=== PATIENT | female | born 1965 | race Hispanic/Latino ===

== ENCOUNTER 2016-10-19 11:20 | Emergency (ER) | payer OTHER, SELFPAY ==
[2016-10-19] MEDS ORDERED: Lidocaine Viscous Sol 2% 15 ml UD Cup ONE (11:43)
[2016-10-19] MEDS ORDERED: Clindamycin 150 MG CAP ONE (11:43)
[2016-10-19] MEDS ORDERED: HYDROcodone/Acetaminophen 10/325 mg Tablet ONE (11:44)
[2016-10-19] MEDS ORDERED: Bupivacaine PF 0.5% 30 ML VIAL ONE (12:45)
[2016-10-19] MEDS ORDERED: Ketorolac Tromethamine 60 MG/2 ML VIAL ONE (13:01)
--- NOTE | 2016-10-19 13:29 | ERRECORD ---
[facility] EMERGENCY RECORD HPI TOOTHACHE (11:44 ABUS) CHIEF COMPLAINT: Patient presents for evaluation of toothache. HISTORIAN: History provided by patient, 50 yr old F with known dental caries and several broken teeth who comes in with left lower jaw pain, swelling and concern for abscess. She has known about this broken tooth for a long time but cannot afford dental care. Denies any F, N/V. LOCATION: Symptoms are localized, most severe to left lower jaw. QUALITY: Pain is dull in nature, described as aching, described as pressure-like. SEVERITY: Currently symptoms are moderate. TIME COURSE: Gradual onset of symptoms, 1, days priror to arrival. ASSOCIATED WITH: Associated with facial pain, for 1 day, Associated with facial swelling, for 1 day, No associated fever, No associated recent dental procedure, No associated trauma. EXACERBATED BY: Patient's condition exacerbated by nothing. RELIEVED BY: Patient's condition relieved by nothing. ROS (11:46 ABUS) CONSTITUTIONAL: Negative constitutional review of systems, Historian denies chills, denies fever. ENT: Historian denies drooling, denies epistaxis, denies otalgia, denies otorrhea, denies rhinorrhea, denies sinus pain, denies sore throat. CARDIOVASCULAR: Negative cardiovascular review of systems, Historian denies chest pain, denies palpitations. RESPIRATORY: Negative respiratory review of systems, Historian denies cough, denies shortness of breath. GI: Negative gastrointestinal review of systems, Historian denies abdominal pain, denies constipation, denies diarrhea, denies nausea, denies vomiting. GENITOURINARY FEMALE: Negative genitourinary review of systems, Historian denies dysuria, denies frequency. SKIN: Negative skin review of systems, Historian denies rash, denies skin changes. NEUROLOGIC: Negative neurologic review of systems, Historian denies headache. HEMO/LYMPHATIC: Normal hematologic/lymphatic system review, Historian denies abnormal blood clotting. PAST MEDICAL HISTORY (WedOct 19, 2016 11:32 MDEB) MEDICAL HISTORY: Past medical history includes history of diabetes, Type II, Past medical history includes history of hyperlipidemia, high cholesterol, Past medical history includes history of hypertension, which has been treated, Past medical history includes pulmonary disease, chronic obstructive pulmonary disease, Notes: NON-COMPLIANT WITH MEDICATIONS, Past medical history includes cardiac history, congestive heart failure,. VERIFIEDE 09/30/16. &a-1R&a+25V*p+0X*[id number]*c202B*c15G*c2P*p-0X&a-25V&a+1R Name: Lianna Crowe : 1965 F50 MedRec: [id number] AcctNum: [id number] Prepared: WedOct 19, 2016 18:51 by Interface Page 1 of 4 pMD [facility] EMERGENCY RECORD FEMALE SURGICAL HISTORY: Surgical history of tonsillectomy,. VERIFIED 09/29/16. PSYCHIATRIC HISTORY: No previous psychiatric history, Notes: DENIES, No previous psychiatric history, Notes: DENIES. Reviewed 02/07/2015. SOCIAL HISTORY: Patient denies alcohol use, Patient denies drug use, Patient currently uses tobacco, smokes cigarettes, Patient smokes 1 pack per day, Social History includes VERIFIED 07-19-16, Social History includes lives alone but dad lives close, Patient drinks socially, rarely, Patient denies drug use, Patient currently uses tobacco, smokes cigarettes, daily reports 1 1/2 packs. KNOWN ALLERGIES No Known Allergies (Unconfirmed) No Known Drug Allergies CURRENT MEDICATIONS No recorded medications VITAL SIGNS (11:30 MDEB) VITAL SIGNS: BP: 139/64, Pulse: 80, Resp: 20, Temp: 98.2 (Oral), Pain: 8, O2 sat: 97 on Room Air, Time: 10/19/2016 11:30. PHYSICAL EXAM (11:46 ABUS) CONSTITUTIONAL: Vital signs reviewed, Patient afebrile, Pulse normal, Blood pressure normal, Respiratory rate normal, Patient appears non toxic, Patient appears pain free, Patient alert and oriented to person, place and time. ENT: Ear exam normal, external ear normal, Nose exam normal, no nasal deformity, Pharynx exam normal, not injected, no swelling, symmetrical, Uvula exam normal, midline, no edema, Tonsil exam normal, not enlarged, no exudates, Mouth exam normal, mucous membranes moist, Teeth with, dental caries, fractures, Sinus exam included findings of frontal sinuses with, Maxillary sinuses with. NECK: Neck exam normal, Neck exam included findings of normal range of motion, Trachea midline, no meningeal signs, no cervical adenopathy, no tenderness. RESPIRATORY CHEST: Respiratory and chest exam normal, Respiratory exam included findings of no respiratory distress, Breath sounds clear. CARDIOVASCULAR: Cardiovascular assessment normal, Cardiovascular exam included findings of heart rate regular rate and rhythm, Heart sounds normal. ABDOMEN FEMALE: Abdominal exam included findings of abdomen nontender, Bowel sounds normal, no distension, no mass, no pulsatile masses, no peritoneal signs, no rigidity, no guarding, no rebound, Rovsing's sign absent. BACK: Back exam normal, Back exam included findings of normal inspection, range of motion normal, no tenderness. &a-1R&a+25V*p+0X*[id number]*c202B*c15G*c2P*p-0X&a-25V&a+1R Name: Lianna Crowe : 1965 F50 MedRec: [id number] AcctNum: [id number] Prepared: WedOct 19, 2016 18:51 by Interface Page 2 of 4 pMD [facility] EMERGENCY RECORD NEURO: Neuro exam normal, Neuro exam findings include patient oriented to person, place and time, Speech normal, Gait normal. SKIN: Skin exam normal, Skin exam included findings of skin warm, dry, and normal in color, no rash. MEDICATION ADMINISTRATION SUMMARY Drug Name: Toradol intramuscular, Dose Ordered: 60 mg, Route: Intramuscular, Status: Given, Time: 13:05 10/19/2016, Drug Name: *Lidocaine Viscous, Dose Ordered: 15 mL, Route: Oral, Status: Given, Time: 12:07 10/19/2016, Drug Name: Marcaine, Dose Ordered: 30 mL, Route: Intradermal, Status: Given, Time: 12:00 10/19/2016, Drug Name: HYDROcodone-acetaminophen, Dose Ordered: 10/325 tab(s), Route: Oral, Status: Given, Time: 11:45 10/19/2016, Drug Name: clindamycin HCl, Dose Ordered: 300 mg, Route: Oral, Status: Given, Time: 11:43 10/19/2016, *Additional information available in notes, Detailed record available in Medication Service section. DOCTOR NOTES (11:47 ABUS) TEXT: 50 yr old F with known dental caries and several broken teeth who comes in with left lower jaw pain, swelling and concern for abscess. EXAM: Swelling to the left lower jaw with mild fluctuance around a broken tooth #36. No fever here. DDX: tooth fracture, abscess, dental caries PROCEDURE: I&D of dental abscess using bupivacaine 0.5% 1 cc, small purulent drainage noted with small incision using 18 g needle. Plan: Analgesia, clindamycin, lidocaine, I&D, d/c with dental referral, strict return precautions and prescription discount cards. PROBLEM LIST No recorded problems DIAGNOSIS (13:01 ABUS) FINAL: PRIMARY: Tooth abscess. PRESCRIPTION (11:51 ABUS) Peridex: MOUTHWASH : 0.12 % : MUCOUS MEMBRANE : Quantity: 30 Unit: mL Route: MUCOUS MEMBRANE Schedule: 2 times a day Dispense: * May substitute. Refills: No Refills . NOTES: 1 bottle, Swish and spit. No Refills. acetaminophen-codeine: TABLET : 300 mg-30 mg : ORAL : Quantity: 1 Unit: tab(s) Route: ORAL Schedule: every 6 hours PRN Dispense: 16 Unit: tab(s) May substitute. Refills: No Refills . &a-1R&a+25V*p+0X*[id number]*c202B*c15G*c2P*p-0X&a-25V&a+1R Name: Lianna Crowe : 1965 F50 MedRec: [id number] AcctNum: [id number] Prepared: WedOct 19, 2016 18:51 by Interface Page 3 of 4 pMD [facility] EMERGENCY RECORD NOTES: No Refills. clindamycin HCl: CAPSULE : 300 mg : ORAL : Quantity: 1 Unit: cap(s) Route: ORAL Schedule: 3 times a day Dispense: 21 Unit: cap(s) May substitute. Refills: No Refills . NOTES: ^s=No Refills No Refills. DISPOSITION PATIENT: Disposition Type: Discharge, Disposition: *Discharge Home, Condition: Good. (13:01 ABUS) Patient left the department. (13:22 BABAR) Acosta: FAVIO=MD Donna, Pradeep ECKERT=ARIES Sotelo, Tammie &a-1R&a+25V*p+0X*[id number]*c202B*c15G*c2P*p-0X&a-25V&a+1R Name: Lianna Crowe : 1965 F50 MedRec: [id number] AcctNum: [id number] Prepared: WedOct 19, 2016 18:51 by Interface Page 4 of 4 pMD MTDD
--- NOTE | 2016-10-19 13:33 | PICIS ---
[facility] EMERGENCY RECORD TRIAGE (WedOct 19, 2016 11:32 MDEB) PATIENT: NAME: Lianna Crowe, AGE: 50, GENDER: female, : Wed1965, TIME OF GREET: WedOct 19, 2016 11:20, PREFERRED LANGUAGE: Peruvian, RACE: or , ETHNICITY: Not or , FALL RISK: NO, ECODE BILLING MAP: [facility], SSN: [id number], Zip Code: [address], KG WEIGHT: 75.30, PHONE: , , , PERSON ID: [id number], PCP: DO Seaman Hillary. (WedOct 19, 2016 11:32 MDEB) TRIAGE NOTES: LL MOLAR, L UPPER MOLAR WITH FX TEETH. (WedOct 19, 2016 11:32 MDEB) COMPLAINT: ABCESSED TOOTH. (WedOct 19, 2016 11:32 MDEB) ADMISSION: URGENCY: 4 Non Urgent, ADMISSION SOURCE: Home, TRANSPORT: Walk-in, BED: TRIAGE. (WedOct 19, 2016 11:32 MDEB) ASSESSMENT: Assessment: SWELLING TO JAW ET GUMS. (WedOct 19, 2016 11:32 MDEB) PAIN: Patient complains of pain described as, aching, on a scale 0-10 patient rates pain as 8. (WedOct 19, 2016 11:32 MDEB) IMMUNIZATIONS: Flu vaccine up to date, Tetanus immunization up to date, Pneumococcal vaccine up to date. (WedOct 19, 2016 11:32 MDEB) TRIAGE SCREENING: Patient denies suicidal ideation, Patient denies presence of domestic violence. (WedOct 19, 2016 11:32 MDEB) LMP: Last menstrual period: 10/04/2016. (WedOct 19, 2016 11:32 MDEB) PROVIDERS: TRIAGE NURSE: Tammie Sotelo RN. (WedOct 19, 2016 11:32 MDEB) VITAL SIGNS: BP 139/64, Pulse 80, Resp 20, Temp 98.2, (Oral), Pain 8, O2 Sat 97, on Room Air, Time 10/19/2016 11:30. (11:30 MDEB) KNOWN ALLERGIES No Known Allergies (Unconfirmed) No Known Drug Allergies CURRENT MEDICATIONS No recorded medications VITAL SIGNS (11:30 MDEB) VITAL SIGNS: BP: 139/64, Pulse: 80, Resp: 20, Temp: 98.2 (Oral), Pain: 8, O2 sat: 97 on Room Air, Time: 10/19/2016 11:30. NURSING ASSESSMENT: DENTAL (11:32 MDEB) CONSTITUTIONAL: Patient arrives ambulatory, Gait steady, History obtained from patient, Patient appears, in distress due to pain, uncomfortable, Patient cooperative, Patient alert, Oriented to person, place and time, Skin warm, Skin dry, Skin normal in color, Mucous membranes pink, Mucous membranes moist, Patient is well-groomed, Patient complains of DENTAL ABCESS, SWELLING TO LL JAW ET GUMS. PAIN: aching pain, to left upper back tooth &a-1R&a+25V*p+0X*f8108J*c202B*c15G*c2P*p-0X&a-25V&a+1R Name: Lianna Crowe : 1965 F50 MedRec: [id number] AcctNum: [id number] Prepared: WedOct 19, 2016 18:57 by Interface Page 1 of 8 pMD [facility] EMERGENCY RECORD (teeth), to right lower back tooth (teeth), on a scale 0-10 patient rates pain as 8, Pain exacerbated by nothing, Nothing has been tried to alleviate the pain. DENTAL: Dental assessment findings include mouth normal, Teeth abnormal:, broken secondary tooth (teeth), signs of infection to secondary tooth (teeth), color change to secondary tooth (teeth), missing secondary tooth (teeth), Associated with, swelling to the left side of the face, swelling to the left jaw. NOTES: Emotional support needed and given, Patient tolerated procedure well. SAFETY: Side rails up, Cart/Stretcher in lowest position, Call light within reach, Hospital ID band on. NURSING PROCEDURE: ASSISTED MD (12:50 MDEB) ASSISTED MD: Assisted MD with simple procedure, DRAIN DENTAL ABCESS. NURSING PROCEDURE: DISCHARGE NOTE (13:20 MDEB) DISCHARGE: Patient discharged to home, ambulating without assistance, family driving, accompanied by parent, Summary of Care printed/ provided, Patient requested and was provided an electronic copy of Discharge Instructions, Transition record given to patient, Discharge instructions given to patient, Simple or moderate discharge teaching performed, ATB, [employer], Prescriptions given and instructions on side effects given, Above person(s) verbalized understanding of discharge instructions and follow-up care, Patient treated and evaluated by physician, Notes: RX DISCOUNT CARDS PROVIDED TO PT. BELONGINGS: Belongings remain with patient, Valuables remain with patient. NOTES: Emotional support needed and given, Patient tolerated procedure well. NURSING PROCEDURE: INCISION AND DRAINAGE (13:03 ABUS) PATIENT IDENTIFIER: Patient actively involved in identification process, Patient's identity verified by hospital ID ry. TIMEOUT: Prior to procedure, correct patient verified by, Correct procedure verified, Correct site verified, Correct equipment utilized, Physician performing procedure Dr. Burks. I & D: Incision and drainage indicated to promote healing, Incision and drainage indicated for pain control, Incision and drainage performed, to Tooth #36, by Dr. Burks, small amount, of purulent fluid drained. FOLLOW-UP: After procedure, patient rates pain as 6 out of 10, Notes: Irrigated with water and had patient swish and spit. NOTES: Emotional support needed and given, Patient tolerated procedure with difficulty. &a-1R&a+25V*p+0X*h6268Q*c202B*c15G*c2P*p-0X&a-25V&a+1R Name: Lianna Crowe : 1965 F50 MedRec: [id number] AcctNum: [id number] Prepared: WedOct 19, 2016 18:57 by Interface Page 2 of 8 pMD [facility] EMERGENCY RECORD NURSING PROCEDURE: NURSE NOTES (12:45 MDTIM) NURSES NOTES: Notes: PT NOT TOLERATING TOPICAL ANESTHESIA FOR DRAINING ABCESS BY DR BURKS. HE REQUESTS MARCAINE FOR DRAINGING ABCESS. ORDER DETAILS Order Name: chart element #1, Status: Active, Time: 13:03 10/19/2016, User: System, - Ordered for: MD Burks Anthony, - Entered by: MD Burks Anthony - WedOct 19, 2016 13:03, - Quantity: 1, Order Name: chart element #4, Status: Active, Time: 13:03 10/19/2016, User: System, - Ordered for: MD Burks Anthony, - Entered by: MD Burks Anthony - WedOct 19, 2016 13:03, - Quantity: 1. MEDICATION ADMINISTRATION SUMMARY Drug Name: Toradol intramuscular, Dose Ordered: 60 mg, Route: Intramuscular, Status: Given, Time: 13:05 10/19/2016, Drug Name: *Lidocaine Viscous, Dose Ordered: 15 mL, Route: Oral, Status: Given, Time: 12:07 10/19/2016, Drug Name: Marcaine, Dose Ordered: 30 mL, Route: Intradermal, Status: Given, Time: 12:00 10/19/2016, Drug Name: HYDROcodone-acetaminophen, Dose Ordered: 10/325 tab(s), Route: Oral, Status: Given, Time: 11:45 10/19/2016, Drug Name: clindamycin HCl, Dose Ordered: 300 mg, Route: Oral, Status: Given, Time: 11:43 10/19/2016, *Additional information available in notes, Detailed record available in Medication Service section. MEDICATION SERVICE clindamycin HCl: Order: clindamycin HCl - Dose: 300 mg : Oral Schedule: Now Ordered by: Pradeep Burks MD Entered by: Pradeep Burks MD WedOct 19, 2016 11:41 , Acknowledged by: Tammie Sotelo RN WedOct 19, 2016 11:42 Documented as given by: Tammie Sotelo RN WedOct 19, 2016 11:43 Patient, Medication, Dose, Route and Time verified prior to administration. Amount given: 300 MG, Site: Medication administered P.O., Correct patient, time, route, dose and medication confirmed prior to administration, Patient advised of actions and side-effects prior to administration, Allergies confirmed and medications reviewed prior to administration, Patient in position of comfort, Side rails up, Cart in lowest position. HYDROcodone-acetaminophen: Order: HYDROcodone-acetaminophen &a-1R&a+25V*p+0X*n8268Z*c202B*c15G*c2P*p-0X&a-25V&a+1R Name: Lianna Crowe : 1965 F50 MedRec: [id number] AcctNum: [id number] Prepared: WedOct 19, 2016 18:57 by Interface Page 3 of 8 pMD [facility] EMERGENCY RECORD (hydrocodone bitartrate/acetaminophen) - Dose: 10/325 tab(s) : Oral Schedule: Now Ordered by: Pradeep Burks MD Entered by: Pradeep Burks MD WedOct 19, 2016 11:43 Documented as given by: Tammie Sotelo RN WedOct 19, 2016 11:45 Patient, Medication, Dose, Route and Time verified prior to administration. Amount given: , Site: Medication administered P.O., Correct patient, time, route, dose and medication confirmed prior to administration, Patient advised of actions and side-effects prior to administration, Allergies confirmed and medications reviewed prior to administration, Patient in position of comfort, Side rails up, Cart in lowest position. Lidocaine Viscous: Order: Lidocaine Viscous (lidocaine HCl) - Dose: 15 mL : Oral Schedule: Now Notes: Give to MD to administer Ordered by: Pradeep Burks MD Entered by: Pradeep Burks MD WedOct 19, 2016 11:40 , Acknowledged by: Tammie Sotelo RN WedOct 19, 2016 11:42 Documented as given by: Tammie Sotelo RN WedOct 19, 2016 12:07 Patient, Medication, Dose, Route and Time verified prior to administration. Amount given: 15 ML, Site: Medication administered P.O., Correct patient, time, route, dose and medication confirmed prior to administration, Patient advised of actions and side-effects prior to administration, Allergies confirmed and medications reviewed prior to administration, Administered by DR BURKS, Patient in position of comfort, Cart in lowest position. Marcaine: Order: Marcaine (bupivacaine HCl) - Dose: 30 mL : Intradermal Schedule: Now Ordered by: Pradeep Burks MD Entered by: Pradeep Burks MD WedOct 19, 2016 18:18 Documented as given by: Tammie Sotelo RN WedOct 19, 2016 12:00 Patient, Medication, Dose, Route and Time verified prior to administration. Amount given: 30 ML, Correct patient, time, route, dose and medication confirmed prior to administration, Patient advised of actions and side-effects prior to administration, Allergies confirmed and medications reviewed prior to administration, Administered by DR BURKS, Patient in position of comfort, Cart in lowest position, Family at bedside. Toradol intramuscular: Order: Toradol intramuscular (ketorolac tromethamine) - Dose: 60 mg : Intramuscular Schedule: Now Ordered by: Pradeep Burks MD Entered by: Pradeep Burks MD WedOct 19, 2016 13:00 , Acknowledged by: Tammie Sotelo RN WedOct 19, 2016 13:00 &a-1R&a+25V*p+0X*l1214E*c202B*c15G*c2P*p-0X&a-25V&a+1R Name: Lianna Crowe : 1965 F50 MedRec: [id number] AcctNum: [id number] Prepared: WedOct 19, 2016 18:57 by Interface Page 4 of 8 pMD [facility] EMERGENCY RECORD Documented as given by: Tammie Sotelo RN WedOct 19, 2016 13:05 Patient, Medication, Dose, Route and Time verified prior to administration. IM medication, Amount given: 60 MG, Medication administered to right hip, Correct patient, time, route, dose and medication confirmed prior to administration, Patient advised of actions and side-effects prior to administration, Allergies confirmed and medications reviewed prior to administration, Patient in position of comfort, Cart in lowest position, Family at bedside. HPI TOOTHACHE (11:44 ABUS) CHIEF COMPLAINT: Patient presents for evaluation of toothache. HISTORIAN: History provided by patient, 50 yr old F with known dental caries and several broken teeth who comes in with left lower jaw pain, swelling and concern for abscess. She has known about this broken tooth for a long time but cannot afford dental care. Denies any F, N/V. LOCATION: Symptoms are localized, most severe to left lower jaw. QUALITY: Pain is dull in nature, described as aching, described as pressure-like. SEVERITY: Currently symptoms are moderate. TIME COURSE: Gradual onset of symptoms, 1, days priror to arrival. ASSOCIATED WITH: Associated with facial pain, for 1 day, Associated with facial swelling, for 1 day, No associated fever, No associated recent dental procedure, No associated trauma. EXACERBATED BY: Patient's condition exacerbated by nothing. RELIEVED BY: Patient's condition relieved by nothing. ROS (11:46 ABUS) CONSTITUTIONAL: Negative constitutional review of systems, Historian denies chills, denies fever. ENT: Historian denies drooling, denies epistaxis, denies otalgia, denies otorrhea, denies rhinorrhea, denies sinus pain, denies sore throat. CARDIOVASCULAR: Negative cardiovascular review of systems, Historian denies chest pain, denies palpitations. RESPIRATORY: Negative respiratory review of systems, Historian denies cough, denies shortness of breath. GI: Negative gastrointestinal review of systems, Historian denies abdominal pain, denies constipation, denies diarrhea, denies nausea, denies vomiting. GENITOURINARY FEMALE: Negative genitourinary review of systems, Historian denies dysuria, denies frequency. SKIN: Negative skin review of systems, Historian denies rash, denies skin changes. NEUROLOGIC: Negative neurologic review of systems, Historian denies headache. HEMO/LYMPHATIC: Normal hematologic/lymphatic system review, &a-1R&a+25V*p+0X*z0021S*c202B*c15G*c2P*p-0X&a-25V&a+1R Name: Lianna Crowe : 1965 F50 MedRec: [id number] AcctNum: [id number] Prepared: WedOct 19, 2016 18:57 by Interface Page 5 of 8 pMD [facility] EMERGENCY RECORD Historian denies abnormal blood clotting. PAST MEDICAL HISTORY (WedOct 19, 2016 11:32 MDEB) MEDICAL HISTORY: Past medical history includes history of diabetes, Type II, Past medical history includes history of hyperlipidemia, high cholesterol, Past medical history includes history of hypertension, which has been treated, Past medical history includes pulmonary disease, chronic obstructive pulmonary disease, Notes: NON-COMPLIANT WITH MEDICATIONS, Past medical history includes cardiac history, congestive heart failure,. VERIFIEDE 09/30/16. FEMALE SURGICAL HISTORY: Surgical history of tonsillectomy,. VERIFIED 09/29/16. PSYCHIATRIC HISTORY: No previous psychiatric history, Notes: DENIES, No previous psychiatric history, Notes: DENIES. Reviewed 02/07/2015. SOCIAL HISTORY: Patient denies alcohol use, Patient denies drug use, Patient currently uses tobacco, smokes cigarettes, Patient smokes 1 pack per day, Social History includes VERIFIED 07-19-16, Social History includes lives alone but dad lives close, Patient drinks socially, rarely, Patient denies drug use, Patient currently uses tobacco, smokes cigarettes, daily reports 1 1/2 packs. PHYSICAL EXAM (11:46 ABUS) CONSTITUTIONAL: Vital signs reviewed, Patient afebrile, Pulse normal, Blood pressure normal, Respiratory rate normal, Patient appears non toxic, Patient appears pain free, Patient alert and oriented to person, place and time. ENT: Ear exam normal, external ear normal, Nose exam normal, no nasal deformity, Pharynx exam normal, not injected, no swelling, symmetrical, Uvula exam normal, midline, no edema, Tonsil exam normal, not enlarged, no exudates, Mouth exam normal, mucous membranes moist, Teeth with, dental caries, fractures, Sinus exam included findings of frontal sinuses with, Maxillary sinuses with. NECK: Neck exam normal, Neck exam included findings of normal range of motion, Trachea midline, no meningeal signs, no cervical adenopathy, no tenderness. RESPIRATORY CHEST: Respiratory and chest exam normal, Respiratory exam included findings of no respiratory distress, Breath sounds clear. CARDIOVASCULAR: Cardiovascular assessment normal, Cardiovascular exam included findings of heart rate regular rate and rhythm, Heart sounds normal. ABDOMEN FEMALE: Abdominal exam included findings of abdomen nontender, Bowel sounds normal, no distension, no mass, no pulsatile masses, no peritoneal signs, no rigidity, no guarding, no rebound, Rovsing's sign absent. BACK: Back exam normal, Back exam included findings of normal inspection, range of motion normal, no tenderness. NEURO: Neuro exam normal, Neuro exam findings include patient &a-1R&a+25V*p+0X*y6920Q*c202B*c15G*c2P*p-0X&a-25V&a+1R Name: Lianna Crowe : 1965 F50 MedRec: [id number] AcctNum: [id number] Prepared: WedOct 19, 2016 18:57 by Interface Page 6 of 8 pMD [facility] EMERGENCY RECORD oriented to person, place and time, Speech normal, Gait normal. SKIN: Skin exam normal, Skin exam included findings of skin warm, dry, and normal in color, no rash. EVENTS TRANSFER: Triage to Emergency Triage. (WedOct 19, 2016 11:32 MDEB) Emergency Triage to Main ED -04. (11:32 MDEB) Removed from Emergency Main ED -04. (13:22 MDEB) DOCTOR NOTES (11:47 ABUS) TEXT: 50 yr old F with known dental caries and several broken teeth who comes in with left lower jaw pain, swelling and concern for abscess. EXAM: Swelling to the left lower jaw with mild fluctuance around a broken tooth #36. No fever here. DDX: tooth fracture, abscess, dental caries PROCEDURE: I&D of dental abscess using bupivacaine 0.5% 1 cc, small purulent drainage noted with small incision using 18 g needle. Plan: Analgesia, clindamycin, lidocaine, I&D, d/c with dental referral, strict return precautions and prescription discount cards. PROBLEM LIST No recorded problems DIAGNOSIS (13:01 ABUS) FINAL: PRIMARY: Tooth abscess. DISPOSITION PATIENT: Disposition Type: Discharge, Disposition: *Discharge Home, Condition: Good. (13:01 ABUS) Patient left the department. (13:22 MDEB) INSTRUCTION (13:03 ABUS) DISCHARGE: TOOTH ABSCESS. [facility] [address] [place] [address], , Follow up with Primary Care Physician in 1-2 days. SPECIAL: As discussed in the ED, please keep any upcoming appointments with your primary doctor or call the referral provided to you today to establish a follow up evaluation or ongoing medical care. Please come back if you start to have fever, vomiting, swelling, difficulty swallowing, or any symptoms that concern you. PRESCRIPTION (11:51 ABUS) Peridex: MOUTHWASH : 0.12 % : MUCOUS MEMBRANE : Quantity: 30 Unit: mL Route: MUCOUS MEMBRANE Schedule: 2 times a day Dispense: * May substitute. Refills: No Refills . &a-1R&a+25V*p+0X*u8591Z*c202B*c15G*c2P*p-0X&a-25V&a+1R Name: Lianna Crowe : 1965 F50 MedRec: [id number] AcctNum: [id number] Prepared: WedOct 19, 2016 18:57 by Interface Page 7 of 8 pMD [facility] EMERGENCY RECORD NOTES: 1 bottle, Swish and spit. No Refills. acetaminophen-codeine: TABLET : 300 mg-30 mg : ORAL : Quantity: 1 Unit: tab(s) Route: ORAL Schedule: every 6 hours PRN Dispense: 16 Unit: tab(s) May substitute. Refills: No Refills . NOTES: No Refills. clindamycin HCl: CAPSULE : 300 mg : ORAL : Quantity: 1 Unit: cap(s) Route: ORAL Schedule: 3 times a day Dispense: 21 Unit: cap(s) May substitute. Refills: No Refills . NOTES: ^s=No Refills No Refills. IMAGING *DISCHARGE INSTRUCTIONS RECEIPT: Image captured from scanner. (13:19 MDTIM) *SUPPLY CHARGE SHEET: Image captured from scanner. (13:20 MDTIM) ADMIN DIGITAL SIGNATURE: MD Burks Anthony. (13:55 ABUS) MD Burks Anthony. (18:49 ABUS) [place]: ABUS=MD Burks Anthony MDEB=ARIES Sotelo, Tammie &a-1R&a+25V*p+0X*u0825R*c202B*c15G*c2P*p-0X&a-25V&a+1R Name: Lianna Crowe : 1965 F50 MedRec: [id number] AcctNum: [id number] Prepared: WedOct 19, 2016 18:57 by Interface Page 8 of 8 pMD MTDD
== END 2016-10-19 13:20 | disposition home or self-care (01) ==
LOC: MADERS 11:20
DX: K04.7 Periapical abscess without sinus (principal); E11.9 Type 2 diabetes mellitus without complications; E78.5 Hyperlipidemia, unspecified; I10 Essential (primary) hypertension; J44.9 Chronic obstructive pulmonary disease, unspecified; F17.210 Nicotine dependence, cigarettes, uncomplicated
CPT/HCPCS: 41800; 96372; J1885; S0020

== ENCOUNTER 2016-10-24 00:13 | Emergency (ER) | payer OTHER, SELFPAY ==
[2016-10-24] MEDS ORDERED: Aspirin 325 MG TAB ONE (00:48)
[2016-10-24] MEDS ORDERED: Furosemide 40 MG/4 ML VIAL ONE (00:48)
[2016-10-24] MEDS ORDERED: Ondansetron HCl/PF 4 MG/2 ML Vial ONE (00:54)
[2016-10-24 01:37] LABS: INR-International Normal Ratio 1.1; PTT 29.2 SEC (22.9-36.1); Prothrombin Time 14.7 SEC (12.0-14.7)
[2016-10-24 01:39] LABS: D-Dimer Test 1.29 *mcg/mL (0.27-0.43)
[2016-10-24 01:43] LABS: ALT (SGPT) 7 U/L (0-55); AST (SGOT) 12 U/L (5-34); Albumin 3.5 g/dL (3.5-5.0); Alkaline Phosphatase 132 U/L (40-150); Anion Gap 21 mmol/L (10-20); BUN (Urea Nitrogen) 19 mg/dL (9.8-20.1); Bilirubin, Total 0.6 mg/dL (0.2-1.2); CK (CPK) 89 U/L (29-168); Calc. Creatinine Clearance 0 mL/min (70-130); Calcium 9.1 mg/dL (7.8-10.44); Carbon Dioxide 23 mmol/L (22-29); Chloride 93 mmol/L (98-107); Estimated GFR-MDRD 61; Globulin 3.3 g/dL (2.4-3.5); Glucose 230 mg/dL (70-105); Magnesium 1.7 mg/dL (1.6-2.6); Potassium 3.8 mmol/L (3.5-5.1); Protein, Total 6.8 g/dL (6.0-8.3); Sodium 133 mmol/L (136-145)
[2016-10-24 01:44] LABS: #Basophils 0.1 thou/uL (0.0-0.2); #Eosinphils 0.2 thou/uL (0.0-0.7); #Lymphocytes 1.4 thou/uL (1.20-3.40); #Monocytes 0.8 thou/uL (0.11-0.59); #Neutrophils 8.3 thou/uL (1.40-6.50); %Basophils 1.4 % (0.0-1.0); %Lymphocytes 13.1 % (21.0-51.0); %Monocytes 6.9 % (0.0-10.0); %Neutrophils 76.6 % (42.0-75.0); Hemoglobin 11.5 g/dL (12.0-16.0); Mean Corpuscular HGB CONC 33.4 g/dL (32.0-36.0); Mean Corpuscular Hemoglobin 33.1 pg (27.0-31.0); Mean Corpuscular Volume 99.3 fl (81.0-99.0); Platelet Count 288 thou/uL (130-400); RBC Distribution Width 13.6 % (11.5-14.5); Red Blood Cell (RBC) Count 3.47 mill/uL (4.20-5.40); White Blood Cell (WBC) Count 10.8 thou/uL (4.8-10.8)
[2016-10-24 01:49] LABS: CKMB 2.9 ng/mL (0-6.6); Troponin I 0.013 ng/mL (< 0.028)
[2016-10-24 02:05] LABS: Bilirubin Negative (Negative); Blood, Urine Small (Negative); Clarity Clear (Clear); Glucose, Urine (Dipstick) Negative (Negative); Leukocyte Negative (Negative); Nitrite Negative (Negative); Protein, Urine (Dipstick) 100 mg/dL (Neg-Trace); Specific Gravity, Urine 1.015 (1.005-1.030); Urobilinogen 0.2 mg/dL (0.2-1.0); pH, Urine 6.5 (5.0-9.0)
[2016-10-24 02:06] LABS: Bacteria/HPF Rare-Few HPF (None Seen); Other Casts/LPF 4-6 MIXED CASTS LPF (0-3 Hyaline); Renal Epithelial 0-3 HPF (0-3); Transitional Epithelial 0-3 HPF (0-3); Yeast-All Forms Rare HPF (None Seen)
--- NOTE | 2016-10-24 02:32 | ERRECORD ---
[facility] EMERGENCY RECORD HPI CHEST PAIN (00:44 LLDO) CHIEF COMPLAINT: Patient presents for evaluation of chest pain, ongoing, Denies automated implantable cardioverter-defibrillator event, Patient presents for evaluation of pt present with swelling of the feet for the last 2 days. but this evening she developed significant sob and just before getting to the ed she began having left ant chest pain that radiated into back. pt of staff nurse, dr guallpa, and pt has hx of chf but not mi, as far as she knows. HISTORIAN: History provided by patient, History provided by patient's spouse. LOCATION: Symptoms are generalized. QUALITY: Pain is dull in nature, described as aching, described as pressure-like. SEVERITY: Maximum severity of symptoms severe, Currently symptoms are severe, worst c/o is sob. TIME COURSE: Gradual onset of symptoms, Symptoms are worsening, are constant. ASSOCIATED WITH: Associated with cough, Associated with shortness of breath. EXACERBATED BY: Patient's condition exacerbated by cough, Patient's condition not exacerbated by deep breaths, Patient's condition not exacerbated by exercise, Patient's condition not exacerbated by movement, Patient's condition not exacerbated by palpation of chest, Patient's condition not exacerbated by walking. RELIEVED BY: Patient's condition relieved by nothing. RISK FACTORS: Coronary artery disease risk factors, include known coronary artery disease, include diabetes, include family history, include high cholesterol, include hypertension, Thoracic aortic dissection risk factors, include hypertension, Pulmonary embolism risk factors, not applicable to this patient. HEART SCORE: Patients history is Highly Suspicious (2), Patients ECG has Non specific repolarisation disturbance/LBTB/PM (1), Patients age is greater than 45 and less than 65 (1), Patient has equal to or greater than 3 risk factors or history of atherosclerotic disease (2), Total 6. WELLS CRITERIA FOR PE: Patient has, or is likely to have, a primary diagnosis of PE (3), Total 3. ROS CONSTITUTIONAL: Historian reports fatigue, reports weakness. (00:51 LLDO) EYES: Negative eye review of systems, Historian denies eye pain, denies eye redness, denies eye discharge. (00:55 LLDO) ENT: Negative ears, nose, throat review of systems, Historian denies epistaxis, denies rhinorrhea, denies sinus pain, denies sore throat. (00:55 LLDO) CARDIOVASCULAR: Historian reports chest pain, &a-1R&a+25V*p+0X*[id number]*c202B*c15G*c2P*p-0X&a-25V&a+1R Name: Lianna Crowe : 1965 F50 MedRec: [id number] AcctNum: [id number] Prepared: Sat Oct 24, 2016 02:53 by Interface Page 1 of 5 pMD [facility] EMERGENCY RECORD radiation to, Historian reports dyspnea on exertion, reports edema. (00:51 LLDO) RESPIRATORY: Historian reports cough, denies sputum, denies stridor, denies wheezing. (00:51 LLDO) GI: Historian reports nausea. (00:51 LLDO) GENITOURINARY FEMALE: Negative genitourinary review of systems, Historian denies dysuria, denies frequency, denies urgency. (00:55 LLDO) MUSCULOSKELETAL: Negative musculoskeletal review of systems, Historian denies arthralgias, denies back pain, denies injury, denies myalgias, denies neck pain. (00:55 LLDO) SKIN: Negative skin review of systems, Historian denies cellulitis, denies rash, denies skin changes, denies skin lesions. (00:55 LLDO) NEUROLOGIC: Negative neurologic review of systems, Historian denies confusion, denies dizziness, denies focal weakness, denies mental status changes. (00:55 LLDO) HEMO/LYMPHATIC: Normal hematologic/lymphatic system review, Historian denies abnormal blood clotting, denies gum bleeding, denies petechiae. (00:55 LLDO) ALLERGIC/IMMUNOLOGIC: Normal allergy/immunologic system review, Historian denies eczema, denies environmental allergies, denies food allergies. (00:55 LLDO) PSYCHIATRIC: Negative psychiatric review of systems, Historian denies alcohol abuse, denies anxiety, denies depression, denies drug abuse, denies hallucinations. (00:55 LLDO) NOTES: All systems reviewed, negative except as described above. (00:51 LLDO) PAST MEDICAL HISTORY MEDICAL HISTORY: Past medical history includes history of diabetes, Type II, Past medical history includes history of hyperlipidemia, high cholesterol, Past medical history includes history of hypertension, which has been treated, Past medical history includes pulmonary disease, chronic obstructive pulmonary disease, Notes: NON-COMPLIANT WITH MEDICATIONS, Past medical history includes cardiac history, congestive heart failure,. VERIFIEDE 09/30/16. (00:26 LWAL) FEMALE SURGICAL HISTORY: Surgical history of tonsillectomy,. VERIFIED 09/29/16. (00:26 LWAL) PSYCHIATRIC HISTORY: No previous psychiatric history, Notes: DENIES, No previous psychiatric history, Notes: DENIES. Reviewed 02/07/2015. (00:26 LWAL) SOCIAL HISTORY: Patient denies alcohol use, Patient denies drug use, Patient currently uses tobacco, smokes cigarettes, Patient smokes 1 pack per day, Social History includes VERIFIED 07-19-16, Social History includes lives alone but dad lives close, Patient drinks socially, rarely, Patient denies drug use, Patient currently uses tobacco, smokes cigarettes, daily reports 1 1/2 packs. (00:26 LWAL) &a-1R&a+25V*p+0X*[id number]*c202B*c15G*c2P*p-0X&a-25V&a+1R Name: Lianna Crowe : 1965 F50 MedRec: [id number] AcctNum: [id number] Prepared: Lit Oct 24, 2016 02:53 by Interface Page 2 of 5 pMD [facility] EMERGENCY RECORD NOTES: Nursing records reviewed, Agree with nursing records, Medication list reviewed. (00:55 LLDO) KNOWN ALLERGIES No Known Allergies (Unconfirmed) No Known Drug Allergies CURRENT MEDICATIONS (00:25 LWAL) Peridex: MOUTHWASH : Strength - 0.12 % : MUCOUS MEMBRANE Patient Dose: 30 mL MUCOUS MEMBRANE 2 times a day.1 bottle, Swish and spit. acetaminophen-codeine: TABLET : Strength - 300 mg-30 mg : ORAL Patient Dose: 1 tab(s) Oral every 6 hours PRN. clindamycin HCl: CAPSULE : Strength - 300 mg : ORAL Patient Dose: 1 cap(s) Oral 3 times a day. Lasix: TABLET : Strength - 40 mg : ORAL Patient Dose: 1 tab(s) Oral See Notes.one tablet twice a day (morning and afternoon) for a week and then once a day in the morning until after you see your primary care physician. treypril: TABLET : Strength - 5 mg : ORAL Patient Dose: 20 mg Oral once a day. metFORMIN: TABLET : Strength - 850 mg : ORAL Patient Dose: 1000 mg Oral 2 times a day. HumuLIN N: VIAL (ML) : Strength - 100 unit/mL : SUBCUTANEOUS Patient Dose: 18 units. FLUoxetine: CAPSULE : Strength - 20 mg : ORAL Patient Dose: Unknown. Coreg: TABLET : Strength - 6.25 mg : ORAL Patient Dose: 0 Oral 2 times a day.DOSE UNKNOWN. K-Dur: TABLET, EXT RELEASE, PARTICLES/CRYSTALS : Strength - 20 mEq : ORAL Patient Dose: 1 tab(s) Oral once a day (in the morning). VITAL SIGNS VITAL SIGNS: BP: 159/82, Pulse: 88, Resp: 24, Temp: 98.0 (Oral), Pain: 4, O2 sat: 100 on Room Air, Time: 10/24/2016 00:24. (00:24 LWAL) BP: 133/74, Pulse: 88, Resp: 20, O2 sat: 97 on 2L Oxygen, Time: 10/24/2016 01:07. (01:07 LWAL) BP: 142/75, Pulse: 83, Resp: 24, Pain: 2, O2 sat: 100 on 2L Oxygen, Time: 10/24/2016 01:30. (01:30 LWAL) BP: 142/70, Pulse: 81, Resp: 22, O2 sat: 100 on Room Air, Time: 10/24/2016 &a-1R&a+25V*p+0X*v2131Y*c202B*c15G*c2P*p-0X&a-25V&a+1R Name: Lianna Crowe : 1965 F50 MedRec: [id number] AcctNum: [id number] Prepared: Sat Oct 24, 2016 02:53 by Interface Page 3 of 5 pMD [facility] EMERGENCY RECORD 01:47. (01:47 LWAL) BP: 141/81, Pulse: 83, Resp: 28, Pain: 2, O2 sat: 100 on 2L, Time: 10/24/2016 02:04. (02:04 LWAL) BP: 145/81, Pulse: 84, Resp: 24, Temp: 97.8, Pain: 0, O2 sat: 100 on 2L, Time: 10/24/2016 02:30. (02:30 LWAL) PHYSICAL EXAM CONSTITUTIONAL: Vital Signs Reviewed, Patient afebrile, Pulse normal, Blood pressure, BP ELEVATED SLIGHTLY, Respiratory rate, increased, 24-28, Patient appears, uncomfortable, Patient appears, in moderate pain distress, Patient alert and oriented to person, place and time, Nursing notes reviewed. (00:52 LLDO) HEAD: Head exam normal, Head exam included findings of head atraumatic, normocephalic. (00:55 LLDO) EYES: Eye exam normal, Eye exam included findings of eyelids normal to inspection, Pupils equally round and reactive to light, Extraocular muscles intact. (00:55 LLDO) ENT: ENT exam normal, Ear exam normal, Nose exam normal. (00:55 LLDO) NECK: Neck exam normal, Neck exam included findings of normal range of motion, Trachea midline, no meningeal signs, no tenderness. (00:55 LLDO) RESPIRATORY CHEST: Respiratory exam included findings of no respiratory distress, Rales present, Chest exam included findings of chest movement symmetrical, Chest expansion equal, no tenderness, RALES DIFFUSE AND MOD. (00:52 LLDO) CARDIOVASCULAR: Cardiovascular assessment normal, Cardiovascular exam included findings of heart rate regular rate and rhythm, Heart sounds normal. (00:55 LLDO) ABDOMEN FEMALE: Abdominal exam normal, Abdominal exam included findings of abdomen nontender, Bowel sounds normal, no peritoneal signs. (00:55 LLDO) BACK: Back exam normal, Back exam included findings of normal inspection, range of motion normal. (00:55 LLDO) UPPER EXTREMITY: Upper extremity exam normal, Upper extremity exam included findings of inspection normal, Range of motion normal. (00:55 LLDO) LOWER EXTREMITY: Lower extremity exam included findings of inspection abnormal, pedal edema, Range of motion normal, Motor strength normal, Sensation intact, Posterior tibial pulse normal, Pedal pulse normal, Rishabh's negative, Edema present, to bilateral lower extremities, pitting, +3. (00:52 LLDO) NEURO: Neuro exam normal, Neuro exam findings include patient oriented to person, place and time, Speech normal, Mini coma scale 15. (00:55 LLDO) SKIN: Skin exam normal, Skin exam included findings of skin warm, dry, and normal in color, no rash. (00:55 LLDO) &a-1R&a+25V*p+0X*j0681B*c202B*c15G*c2P*p-0X&a-25V&a+1R Name: Lianna Crowe : 1965 F50 MedRec: [id number] AcctNum: [id number] Prepared: Sat Oct 24, 2016 02:53 by Interface Page 4 of 5 pMD [facility] EMERGENCY RECORD PSYCHIATRIC: Psychiatric exam normal, Psychiatric exam included findings of patient oriented to person place and time, Normal affect. (00:55 LLDO) MEDICATION ADMINISTRATION SUMMARY Drug Name: *nitroglycerin sublingual, Dose Ordered: 1 tab(s), Route: Oral, Status: Given, Time: 01:07 10/24/2016, Drug Name: Lasix injection, Dose Ordered: 80 mg, Route: IV Push, Status: Given, Time: 01:06 10/24/2016, Drug Name: Zofran intravenous, Dose Ordered: 8 mg, Route: IV Push, Status: Given, Time: 01:04 10/24/2016, Drug Name: *nitroglycerin sublingual, Dose Ordered: 1 tab(s), Route: Oral, Status: Given, Time: 00:59 10/24/2016, Drug Name: aspirin oral, Dose Ordered: 325 mg, Route: Oral, Status: Given, Time: 00:58 10/24/2016, *Additional information available in notes, Detailed record available in Medication Service section. DOCTOR NOTES (02:19 LLDO) TEXT: accepted by dr. Hopkins for [facility]. PATIENT PLAN: The patient requires a transfer and will be transferred. PROBLEM LIST No recorded problems DIAGNOSIS (02:25 LLDO) FINAL: PRIMARY: CHF, ADDITIONAL: addiction to tobacco, COPD UNSPECIFIED, Hypertension, OTHER HYPERLIPIDEMIA, Type 2 Diabetes mellitus (NIDDM) - uncontrolled. PRESCRIPTION No recorded prescriptions DISPOSITION PATIENT: Disposition Type: Transfer, Disposition: Transfer to [facility]. (02:23 LLDO) Disposition Transport: Ambulance, Condition: Fair, Patient left the department. (02:46 LWAL) Acosta: LLDO=MD Jeff, Valentin LWAL=ARIES Merritt, Sridevi &a-1R&a+25V*p+0X*[id number]*c202B*c15G*c2P*p-0X&a-25V&a+1R Name: Lianna Crowe : 1965 F50 MedRec: [id number] AcctNum: [id number] Prepared: Lit Oct 24, 2016 02:53 by Interface Page 5 of 5 pMD MTDD
--- NOTE | 2016-10-24 02:38 | PICIS ---
[facility] EMERGENCY RECORD COMMUNICATIONS COMMUNICATIONS: Other notification, Name DRAGAN, contacted at [facility], Reason for notification REQUEST TO TRANSFER. (02:15 EROG) Other notification, Name DR. HOPKINS, contacted at [facility], Reason for notification DOC TO DOC FOR ACCEPTANCE, SPOKE WITH DR. AGUIAR AND ACCEPTS PATIENT FOR ER TO ER TRANSFER. 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 (02:19 EROG) Ambulance service, contacted at [facility], Name of provider [facility], Person contacted [place], requested for transfer to another facility, by advanced life support transport. (02:20 EROG) TRIAGE (00:25 LWAL) TRIAGE NOTES: SOB, FEET AND LEGS SWOLLEN. (00:25 LWAL) PATIENT: NAME: Lianna Crowe, AGE: 50, GENDER: female, : Wed1965, TIME OF GREET: WedOct 24, 2016 00:14, PREFERRED LANGUAGE: Brazilian, ETHNICITY: Not or , FALL RISK: NO, ECODE BILLING MAP: [facility], SSN: [id number], Zip Code: [address], KG WEIGHT: 72.57, PHONE: , , , PERSON ID: [id number], PCP: DO Seaman Hillary. (00:25 LWAL) COMPLAINT: TROUBLE BREATHING. (00:25 LWAL) ADMISSION: URGENCY: 3 Urgent, ADMISSION SOURCE: Home, TRANSPORT: CAR, BED: ED -05. (00:25 LWAL) ASSESSMENT: Assessment: SOB, FEET AND LEGS SWOLLEN UP TO KNEES, Symptoms began TODAY. (00:26 LWAL) SIRS SCORING: Heart Rate 55-109 (0), Temp range 96.8-101.1 (0), respiratory rate 12-24 (0), Mental Status altered: no (0), Infection or Suspected Infection: No. (00:26 LWAL) PROVIDERS: TRIAGE NURSE: Sridevi Merritt RN. (00:25 LWAL) VITAL SIGNS: BP 159/82, Pulse 88, Resp 24, Temp 98.0, (Oral), Pain 4, O2 Sat 100, on Room Air, Time 10/24/2016 00:24. (00:24 LWAL) PREVIOUS VISIT ALLERGIES: No Known Drug Allergies. (00:25 LWAL) No Known Drug Allergies. (00:26 LWAL) KNOWN ALLERGIES No Known Allergies (Unconfirmed) No Known Drug Allergies CURRENT MEDICATIONS (00:25 LWAL) Peridex: MOUTHWASH : Strength - 0.12 % : MUCOUS MEMBRANE Patient Dose: 30 mL MUCOUS MEMBRANE 2 times a day.1 bottle, Swish and spit. acetaminophen-codeine: TABLET : Strength - 300 mg-30 mg : ORAL Patient Dose: 1 tab(s) Oral every 6 hours PRN. clindamycin HCl: &a-1R&a+25V*p+0X*z9992J*c202B*c15G*c2P*p-0X&a-25V&a+1R Name: Lianna Crowe : 1965 F50 MedRec: [id number] AcctNum: [id number] Prepared: Sat Oct 24, 2016 02:58 by Interface Page 1 of 16 pMD [facility] EMERGENCY RECORD CAPSULE : Strength - 300 mg : ORAL Patient Dose: 1 cap(s) Oral 3 times a day. Lasix: TABLET : Strength - 40 mg : ORAL Patient Dose: 1 tab(s) Oral See Notes.one tablet twice a day (morning and afternoon) for a week and then once a day in the morning until after you see your primary care physician. lisinopril: TABLET : Strength - 5 mg : ORAL Patient Dose: 20 mg Oral once a day. metFORMIN: TABLET : Strength - 850 mg : ORAL Patient Dose: 1000 mg Oral 2 times a day. HumuLIN N: VIAL (ML) : Strength - 100 unit/mL : SUBCUTANEOUS Patient Dose: 18 units. FLUoxetine: CAPSULE : Strength - 20 mg : ORAL Patient Dose: Unknown. Coreg: TABLET : Strength - 6.25 mg : ORAL Patient Dose: 0 Oral 2 times a day.DOSE UNKNOWN. K-Dur: TABLET, EXT RELEASE, PARTICLES/CRYSTALS : Strength - 20 mEq : ORAL Patient Dose: 1 tab(s) Oral once a day (in the morning). VITAL SIGNS VITAL SIGNS: BP: 159/82, Pulse: 88, Resp: 24, Temp: 98.0 (Oral), Pain: 4, O2 sat: 100 on Room Air, Time: 10/24/2016 00:24. (00:24 LWAL) BP: 133/74, Pulse: 88, Resp: 20, O2 sat: 97 on 2L Oxygen, Time: 10/24/2016 01:07. (01:07 LWAL) BP: 142/75, Pulse: 83, Resp: 24, Pain: 2, O2 sat: 100 on 2L Oxygen, Time: 10/24/2016 01:30. (01:30 LWAL) BP: 142/70, Pulse: 81, Resp: 22, O2 sat: 100 on Room Air, Time: 10/24/2016 01:47. (01:47 LWAL) BP: 141/81, Pulse: 83, Resp: 28, Pain: 2, O2 sat: 100 on 2L, Time: 10/24/2016 02:04. (02:04 LWAL) BP: 145/81, Pulse: 84, Resp: 24, Temp: 97.8, Pain: 0, O2 sat: 100 on 2L, Time: 10/24/2016 02:30. (02:30 LWAL) NURSING ASSESSMENT: CARDIOVASCULAR (00:32 LWAL) CONSTITUTIONAL: Patient arrives, via hospital wheelchair, Unsteady gait, Assistance to cart, History obtained from patient, Patient appears, in respiratory distress, Patient cooperative, Patient alert, Oriented to person, place and time, Skin warm, Skin dry, Skin normal in color, Mucous membranes pink, Mucous membranes moist, Patient is well-groomed, Patient complains of SOB, SWELLING TO LOWER EXTREMITIES, SWELLING NOTED TO BILATERAL LOWER EXT UP TO HER KNEES. &a-1R&a+25V*p+0X*n7585H*c202B*c15G*c2P*p-0X&a-25V&a+1R Name: Lianna Crowe : 1965 F50 MedRec: [id number] AcctNum: [id number] Prepared: Sat Oct 24, 2016 02:58 by Interface Page 2 of 16 pMD [facility] EMERGENCY RECORD RESPIRATORY/CHEST: Lungs auscultated, Breath sounds diminished, Respiratory assessment findings include respiratory effort, labored, shallow, Respirations regular, Conversing normally, Neck and chest exam findings include trachea midline, Chest expansion equal, Chest movement symmetrical. SAFETY: Side rails up, Cart/Stretcher in lowest position, Family at bedside, Hospital ID band on. NURSING ASSESSMENT: FALL RISK (00:32 LWAL) FALL RISK: Impaired mobility (3), Elimination problems (3), Total score 6, Notes: PT HAVING TROUBLE WALKING DUE TO SOB AND SWELLING IN HER FEET. NURSING PROCEDURE: BEDSIDE TESTING (01:00 EROG) PATIENT IDENTIFIER: Patient actively involved in identification process, Patient's identity verified by patient stating name, Patient's identity verified by patient stating date, Patient's identity verified by hospital ID bracelet. GLUCOSE: Glucose testing indicated for diabetic patient, Venous blood sample, Result (mg/dl) 225. NURSING PROCEDURE: ROLLER MAKER (00:25 EROG) PATIENT IDENTIFIER: Patient actively involved in identification process, Patient's identity verified by patient stating name, Patient's identity verified by patient stating date. ROLLER MAKER: Cardiac monitoring indicated for complaint of chest pain, Cardiac monitoring indicated for SOB, Patient placed on surveillance monitor, Heart rate: 88, showing normal sinus rhythm, without ectopy, with no ST segment changes, Patient placed on non-invasive blood pressure monitor, Patient placed on continuous pulse oximetry, Adult/pediatric oxisensor applied. NOTES: Patient tolerated procedure well. SAFETY: Cart/Stretcher in lowest position, Family at bedside, Call light within reach, Hospital ID band on. NURSING PROCEDURE: EKG CHART (00:43 EROG) PATIENT IDENTIFIER: Patient actively involved in identification process, Patient's identity verified by patient stating name, Patient's identity verified by hospital ID bracelet. EKG: EKG indicated for complaint of chest pain, EKG indicated for SOB, 12 lead EKG performed on the left chest, done by Heidi VALERO RN, first EKG. FOLLOW-UP: After procedure, EKG for interpretation given to Dr. AGUIAR. NOTES: Patient tolerated procedure well. NURSING PROCEDURE: INTAKE AND OUTPUT (02:39 LWAL) INTAKE AND OUTPUT: Oral intake(ml): 30, Total Intake (ml): 30ml, Urine output(ml): 1700, Total Output (ml): &a-1R&a+25V*p+0X*z7210D*c202B*c15G*c2P*p-0X&a-25V&a+1R Name: Lianna Crowe : 1965 F50 MedRec: [id number] AcctNum: [id number] Prepared: Sat Oct 24, 2016 02:58 by Interface Page 3 of 16 pMD [facility] EMERGENCY RECORD 1700ml, Grand Total: Output is greater than intake by 1670mls. SAFETY: Side rails up, Cart/Stretcher in lowest position, Call light within reach, Hospital ID band on. NURSING PROCEDURE: IV PATIENT IDENITIFIER: Patient actively involved in identification process, Patient's identity verified by patient stating name, Patient's identity verified by hospital ID bracelet. (00:58 EROG) IV SITE 1: IV therapy indicated for medication administration, IV established, to the right antecubital, using an 18 gauge catheter, in one attempt, IV site prepped with CHLOROPREP, Saline lock established, Flushed with normal saline (mls): 10, Labs drawn at time of placement, labeled in the presence of the patient and sent to lab. (00:58 EROG) FOLLOW-UP SITE 1: After procedure, sterile transparent dressing applied. (00:58 EROG) After procedure, no drainage at IV site, After procedure, no swelling at IV site, After procedure, no redness at IV site, Notes: HL PATENT AT TIME OF TRANSFER, NO S/S OF INFILTRATION NOTED. (02:43 LWAL) NOTES: Patient tolerated procedure well. (00:58 EROG) NURSING PROCEDURE: NURSE NOTES (02:04 LWAL) NURSES NOTES: Notes: TO SPEAK WITH PT ABOUT LABS AND XRAYS. PT TO ASK TO STAY HERE IN [place] IF POSSIBLE. 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 VITAL SIGNS: BP: 141, / 81, Pulse: 83, Resp: 28, Pain: 2, O2 sat: 100, on: 2L. NURSING PROCEDURE: RESPIRATORY INTERVENTIONS (00:25 EROG) PATIENT IDENTIFIER: Patient actively involved in identification process, Patient's identity verified by patient stating name, Patient's identity verified by patient stating date. RESPIRATORY INTERVENTIONS: Respiratory interventions indicated for SOB AND CP, Pre-intervention breath sounds with rales, to bilateral upper lobes, to bilateral lower lobes, Pre-intervention oxygen saturation 100%, by adult/pediatric oxisensor, CONTINUOUS, Notes: PLACED ON O2 AT 2L/MIN PER NC. NURSING PROCEDURE: TRANSFER (02:40 LWAL) TRANSFER: Diagnosis: CHF, Accepting institution: [facility], Accepting physician: STEPHANIE, Referring physician: STEFANIA, Transported by urgent ambulance, accompanied by emergency medical services personnel, [facility], Report called to receiving facility, CHRYSTAL RN, Provided opportunity to answer questions, Summary of Care printed, Copy of patient record prepared for receiving facility, Copy of diagnostic studies, Status of patient's valuables documented on chart, Patient consent for transfer signed, Family member contacted, &a-1R&a+25V*p+0X*t4327Y*c202B*c15G*c2P*p-0X&a-25V&a+1R Name: Lianna Crwoe : 1965 F50 MedRec: [id number] AcctNum: [id number] Prepared: Lit Oct 24, 2016 02:58 by Interface Page 4 of 16 pMD [facility] EMERGENCY RECORD DAD, Notes: CELL PHONE AND BAG FROM HOME SENT WITH PT TO [facility]. BELONGINGS: Belongings remain with patient, Valuables remain with patient. EQUIPMENT WITH PATIENT: Equipment with patient at time of transfer surveillance monitor, Saline lock intact and patent at time of transfer, Notes: O2 AT 2L/M PER NC. NOTES: Patient tolerated procedure well. SAFETY: Side rails up, Cart/Stretcher in lowest position, Hospital ID band on. NURSING PROCEDURE: URINE COLLECTION PATIENT IDENTIFIER: Patient actively involved in identification process, Patient's identity verified by patient stating name, Patient's identity verified by hospital ID bracelet. (01:30 LWAL) Patient actively involved in identification process, Patient's identity verified by patient stating name, Patient's identity verified by hospital ID bracelet. (02:30 LWAL) URINE COLLECTION FEMALE: Urine collection indicated to monitor output, Urine collected by void, output amount (mL) 700 ML, urine yellow in color, and clear, Specimen labeled in the presence of the patient and sent to lab, Specimen obtained for culture labeled in the presence of the patient and sent to lab. (01:30 LWAL) Urine collection indicated to monitor output, Simple olmstead inserted, using a 16 fr pre-connected catheter, in one attempt, output amount (mL) 450 ML, urine clear in color, and clear, Olmstead has been anchored to leg and labeled with date and time. (02:30 LWAL) NOTES: Patient tolerated procedure well. (01:30 LWAL) SAFETY: Side rails up, Cart/Stretcher in lowest position, Call light within reach, Hospital ID band on. (01:30 LWAL) NOTES: Patient tolerated procedure well. (02:30 LWAL) SAFETY: Side rails up, Cart/Stretcher in lowest position, Call light within reach, Hospital ID band on. (02:30 LWAL) VITAL SIGNS: BP: 145, / 81, Pulse: 84, Resp: 24, Temp: 97.8, Pain: 0, O2 sat: 100, on: 2L. (02:30 LWAL) ORDER DETAILS Order Name: B type Natriuretic Peptide, Status: Active, Time: 00:35 10/24/2016, User: KALEE, - Ordered for: MD Aguiar Lloyd, - Entered by: MD Aguiar Lloyd - Lit Oct 24, 2016 00:35, - Quantity: 1, Order Name: BLOOD GLUCOSE MONITOR, Status: Done, Time: 01:11 10/24/2016, User: ANA, - Ordered for: MD Aguiar Lloyd, - Entered by: MD Aguiar Lloyd - Lit Oct 24, 2016 00:41, - Quantity: 1, Order Name: ROLLER MAKER ED, Status: Done, Time: 00:48 10/24/2016, User: IRVING, &a-1R&a+25V*p+0X*k3526K*c202B*c15G*c2P*p-0X&a-25V&a+1R Name: Lianna Crowe : 1965 F50 MedRec: [id number] AcctNum: [id number] Prepared: Sat Oct 24, 2016 02:58 by Interface Page 5 of 16 pMD [facility] EMERGENCY RECORD - Ordered for: MD Aguiar Lloyd, - Entered by: MD Aguiar Lloyd - Lit Oct 24, 2016 00:35, - Quantity: 1, Order Name: Cardiac Profile w/CKMB & Troponin - I, Status: Active, Time: 00:35 10/24/2016, User: LLDO, - Ordered for: MD Aguiar Lloyd, - Entered by: MD Aguiar Lloyd - Lit Oct 24, 2016 00:35, - Quantity: 1, Order Name: CBC with Differential, Status: Active, Time: 00:35 10/24/2016, User: LLDO, - Ordered for: MD Aguiar Lloyd, - Entered by: MD Aguiar Lloyd - Sat Oct 24, 2016 00:35, - Quantity: 1, Order Name: CK (CPK), Status: Active, Time: 00:35 10/24/2016, User: LLDO, - Ordered for: MD Aguiar Lloyd, - Entered by: MD Aguiar Lloyd - Lit Oct 24, 2016 00:35, - Quantity: 1, Order Name: Comprehensive Metabolic Panel, Status: Active, Time: 00:35 10/24/2016, User: LLDO, - Ordered for: MD Aguiar Lloyd, - Entered by: MD Aguiar Lloyd - Sat Oct 24, 2016 00:35, - Quantity: 1, Order Name: Culture, Urine, Status: Active, Time: 00:36 10/24/2016, User: LLDO, - Ordered for: MD Aguiar Lloyd, - Entered by: MD Aguiar Lloyd - Sat Oct 24, 2016 00:36, - Quantity: 1, Order Name: D-Dimer (Quantitative), Status: Active, Time: 00:35 10/24/2016, User: LLDO, - Ordered for: MD Aguiar Lloyd, - Entered by: MD Aguiar Lloyd - Sat Oct 24, 2016 00:35, - Quantity: 1, Order Name: EKG 12 Lead in Emergency Room, Status: Active, Time: 00:35 10/24/2016, User: LLDO, - Ordered for: MD Aguiar Lloyd, - Entered by: MD Aguiar Lloyd - Sat Oct 24, 2016 00:35, - Quantity: 1, Order Name: ERRT Oxygen Usage ER, Status: Active, Time: 00:35 10/24/2016, User: LLDO, - Ordered for: MD Aguiar Lloyd, - Entered by: MD Aguiar Lloyd - Sat Oct 24, 2016 00:35, - Quantity: 1, Order Name: ERRT Pulse Oximeter ER, Status: Active, Time: 00:35 10/24/2016, User: KALEE, - Ordered for: MD Aguiar Lloyd, - Entered by: MD Aguiar Lloyd - Sat Oct 24, 2016 00:35, - Quantity: 1, Order Name: OLMSTEAD CATHETER ED, Status: Done, Time: 02:40 10/24/2016, User: LWAL, &a-1R&a+25V*p+0X*u2047M*c202B*c15G*c2P*p-0X&a-25V&a+1R Name: Lianna Crowe : 1965 F50 MedRec: [id number] AcctNum: [id number] Prepared: Sat Oct 24, 2016 02:58 by Interface Page 6 of 16 [facility] EMERGENCY RECORD - Ordered for: MD Aguiar Lloyd, - Entered by: MD Aguiar Lloyd - Sat Oct 24, 2016 00:41, - Quantity: 1, Order Name: Magnesium, Status: Active, Time: 00:35 10/24/2016, User: KALEE, - Ordered for: MD Aguiar Lloyd, - Entered by: MD Aguiar Lloyd - Sat Oct 24, 2016 00:35, - Quantity: 1, Order Name: Protime with INR, Status: Active, Time: 00:35 10/24/2016, User: KALEE, - Ordered for: MD Aguiar Lloyd, - Entered by: MD Aguiar Lloyd - Sat Oct 24, 2016 00:35, - Quantity: 1, Order Name: PTT, Status: Active, Time: 00:35 10/24/2016, User: KALEE, - Ordered for: MD Aguiar Lloyd, - Entered by: MD Aguiar Lloyd - Sat Oct 24, 2016 00:35, - Quantity: 1, Order Name: SALINE LOCK, Status: Done, Time: 01:11 10/24/2016, User: LWDOLORES, - Ordered for: MD Aguiar Lloyd, - Entered by: MD Aguiar Lloyd - Lit Oct 24, 2016 00:35, - Quantity: 1, Order Name: Urinalysis w/ Rflx Microscopic, Status: Active, Time: 00:36 10/24/2016, User: KALEE, - Ordered for: MD Aguiar Lloyd, - Entered by: MD Aguiar Lloyd - Lit Oct 24, 2016 00:36, - Quantity: 1, Order Name: XR Chest 1 View Portable, Status: Active, Time: 00:35 10/24/2016, User: KALEE, - Ordered for: MD Aguiar Lloyd, - Entered by: MD Aguiar Lloyd - Lit Oct 24, 2016 00:35, - Quantity: 1. MEDICATION ADMINISTRATION SUMMARY Drug Name: *nitroglycerin sublingual, Dose Ordered: 1 tab(s), Route: Oral, Status: Given, Time: 01:07 10/24/2016, Drug Name: Lasix injection, Dose Ordered: 80 mg, Route: IV Push, Status: Given, Time: 01:06 10/24/2016, Drug Name: Zofran intravenous, Dose Ordered: 8 mg, Route: IV Push, Status: Given, Time: 01:04 10/24/2016, Drug Name: *nitroglycerin sublingual, Dose Ordered: 1 tab(s), Route: Oral, Status: Given, Time: 00:59 10/24/2016, Drug Name: aspirin oral, Dose Ordered: 325 mg, Route: Oral, Status: Given, Time: 00:58 10/24/2016, *Additional information available in notes, Detailed record available in Medication Service section. MEDICATION SERVICE aspirin oral: Order: aspirin oral (aspirin) - Dose: 325 mg : Oral &a-1R&a+25V*p+0X*u8015F*c202B*c15G*c2P*p-0X&a-25V&a+1R Name: Lianna Crowe : 1965 F50 MedRec: [id number] AcctNum: [id number] Prepared: Sat Oct 24, 2016 02:58 by Interface Page 7 of 16 pMD [facility] EMERGENCY RECORD Schedule: Now Ordered by: Valentin Aguiar MD Entered by: Valentin Aguiar MD Sat Oct 24, 2016 00:39 , Acknowledged by: Sridevi Merritt RN Sat Oct 24, 2016 00:46 Documented as given by: Sridevi Merritt RN Sat Oct 24, 2016 00:58 Patient, Medication, Dose, Route and Time verified prior to administration. Amount given: 325MG, Site: Medication administered P.O., Correct patient, time, route, dose and medication confirmed prior to administration, Patient advised of actions and side-effects prior to administration, Allergies confirmed and medications reviewed prior to administration, Patient in position of comfort, Side rails up, Cart in lowest position. Lasix injection: Order: Lasix injection (furosemide) - Dose: 80 mg : IV Push Schedule: Now Ordered by: Valentin Aguiar MD Entered by: Valentin Aguair MD Sat Oct 24, 2016 00:39 , Acknowledged by: Sridevi Merritt RN Sat Oct 24, 2016 00:46 Documented as given by: Sridevi Merrtit RN Sat Oct 24, 2016 01:06 Patient, Medication, Dose, Route and Time verified prior to administration. Amount given: 80 MG, IV SITE #1 IVP, subsequent different medication, Slowly, Catheter placement confirmed via flush prior to administration, IV site without signs or symptoms of infiltration during medication administration, No swelling during administration, No drainage during administration, IV flushed after administration, Correct patient, time, route, dose and medication confirmed prior to administration, Patient advised of actions and side-effects prior to administration, Allergies confirmed and medications reviewed prior to administration, Patient in position of comfort, Side rails up, Cart in lowest position, Family at bedside. nitroglycerin sublingual: Order: nitroglycerin sublingual (nitroglycerin) - Dose: 1 tab(s) : Oral Schedule: Every 5 minutes Repeat: 3 DOSES Notes: UNTIL PAIN GONE OR SBP DROPS BELOW 105 Ordered by: Valentin Aguiar MD Entered by: Valentin Aguiar MD Sat Oct 24, 2016 00:40 , Acknowledged by: Sridevi Merritt RN Sat Oct 24, 2016 00:46 Documented as given by: Sridevi Merritt RN Sat Oct 24, 2016 00:59 Patient, Medication, Dose, Route and Time verified prior to administration. Amount given: 0.4 MG, Site: Medication administered S.L., Correct patient, time, route, dose and medication confirmed prior to administration, Patient advised of actions and side-effects prior to administration, Allergies confirmed and medications reviewed prior to administration, Family at bedside, #1 TAB. nitroglycerin sublingual: Order: nitroglycerin sublingual (nitroglycerin) - Dose: 1 tab(s) : Oral Schedule: Every 5 minutes Repeat: 3 DOSES &a-1R&a+25V*p+0X*m8157J*c202B*c15G*c2P*p-0X&a-25V&a+1R Name: Lianna Crowe : 1965 F50 MedRec: [id number] AcctNum: [id number] Prepared: Sat Oct 24, 2016 02:58 by Interface Page 8 of 16 pMD [facility] EMERGENCY RECORD Notes: UNTIL PAIN GONE OR SBP DROPS BELOW 105 Ordered by: Valentin Aguiar MD Entered by: Sridevi Merritt RN Sat Oct 24, 2016 01:09 Documented as given by: Sridevi Merritt RN Sat Oct 24, 2016 01:07 Patient, Medication, Dose, Route and Time verified prior to administration. Amount given: 0.4 MG, Site: Medication administered S.L., Correct patient, time, route, dose and medication confirmed prior to administration, Patient advised of actions and side-effects prior to administration, Allergies confirmed and medications reviewed prior to administration, Patient in position of comfort, Side rails up, Cart in lowest position, Family at bedside. Zofran intravenous: Order: Zofran intravenous (ondansetron HCl) - Dose: 8 mg : IV Push Schedule: Now Ordered by: Valentin Aguiar MD Entered by: Valentin Aguiar MD Sat Oct 24, 2016 02:16 Documented as given by: Sridevi Merritt RN Sat Oct 24, 2016 01:04 Patient, Medication, Dose, Route and Time verified prior to administration. Amount given: 8 MG, IV SITE #1 IVP, subsequent different medication, Slowly, Catheter placement confirmed via flush prior to administration, IV site without signs or symptoms of infiltration during medication administration, No swelling during administration, No drainage during administration, IV flushed after administration, Correct patient, time, route, dose and medication confirmed prior to administration, Patient advised of actions and side-effects prior to administration, Allergies confirmed and medications reviewed prior to administration, Patient in position of comfort, Side rails up, Cart in lowest position. HPI CHEST PAIN (00:44 LLDO) CHIEF COMPLAINT: Patient presents for evaluation of chest pain, ongoing, Denies automated implantable cardioverter-defibrillator event, Patient presents for evaluation of pt present with swelling of the feet for the last 2 days. but this evening she developed significant sob and just before getting to the ed she began having left ant chest pain that radiated into back. 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 HISTORIAN: History provided by patient, History provided by patient's spouse. LOCATION: Symptoms are generalized. QUALITY: Pain is dull in nature, described as aching, described as pressure-like. SEVERITY: Maximum severity of symptoms severe, Currently symptoms are severe, worst c/o is sob. TIME COURSE: Gradual onset of symptoms, Symptoms are worsening, are constant. ASSOCIATED WITH: Associated with cough, Associated &a-1R&a+25V*p+0X*w0375J*c202B*c15G*c2P*p-0X&a-25V&a+1R Name: Lianna Crowe : 1965 F50 MedRec: [id number] AcctNum: [id number] Prepared: Lit Oct 24, 2016 02:58 by Interface Page 9 of 16 pMD [facility] EMERGENCY RECORD with shortness of breath. EXACERBATED BY: Patient's condition exacerbated by cough, Patient's condition not exacerbated by deep breaths, Patient's condition not exacerbated by exercise, Patient's condition not exacerbated by movement, Patient's condition not exacerbated by palpation of chest, Patient's condition not exacerbated by walking. RELIEVED BY: Patient's condition relieved by nothing. RISK FACTORS: Coronary artery disease risk factors, include known coronary artery disease, include diabetes, include family history, include high cholesterol, include hypertension, Thoracic aortic dissection risk factors, include hypertension, Pulmonary embolism risk factors, not applicable to this patient. HEART SCORE: Patients history is Highly Suspicious (2), Patients ECG has Non specific repolarisation disturbance/LBTB/PM (1), Patients age is greater than 45 and less than 65 (1), Patient has equal to or greater than 3 risk factors or history of atherosclerotic disease (2), Total 6. WELLS CRITERIA FOR PE: Patient has, or is likely to have, a primary diagnosis of PE (3), Total 3. ROS CONSTITUTIONAL: Historian reports fatigue, reports weakness. (00:51 LLDO) EYES: Negative eye review of systems, Historian denies eye pain, denies eye redness, denies eye discharge. (00:55 LLDO) ENT: Negative ears, nose, throat review of systems, Historian denies epistaxis, denies rhinorrhea, denies sinus pain, denies sore throat. (00:55 LLDO) CARDIOVASCULAR: Historian reports chest pain, radiation to, Historian reports dyspnea on exertion, reports edema. (00:51 LLDO) RESPIRATORY: Historian reports cough, denies sputum, denies stridor, denies wheezing. (00:51 LLDO) GI: Historian reports nausea. (00:51 LLDO) GENITOURINARY FEMALE: Negative genitourinary review of systems, Historian denies dysuria, denies frequency, denies urgency. (00:55 LLDO) MUSCULOSKELETAL: Negative musculoskeletal review of systems, Historian denies arthralgias, denies back pain, denies injury, denies myalgias, denies neck pain. (00:55 LLDO) SKIN: Negative skin review of systems, Historian denies cellulitis, denies rash, denies skin changes, denies skin lesions. (00:55 LLDO) NEUROLOGIC: Negative neurologic review of systems, Historian denies confusion, denies dizziness, denies focal weakness, denies mental status changes. (00:55 LLDO) HEMO/LYMPHATIC: Normal hematologic/lymphatic system review, Historian denies abnormal blood clotting, denies gum bleeding, denies &a-1R&a+25V*p+0X*b4313A*c202B*c15G*c2P*p-0X&a-25V&a+1R Name: Lianna Crowe : 1965 F50 MedRec: [id number] AcctNum: [id number] Prepared: Sat Oct 24, 2016 02:58 by Interface Page 10 of 16 pMD [facility] EMERGENCY RECORD petechiae. (00:55 LLDO) ALLERGIC/IMMUNOLOGIC: Normal allergy/immunologic system review, Historian denies eczema, denies environmental allergies, denies food allergies. (00:55 LLDO) PSYCHIATRIC: Negative psychiatric review of systems, Historian denies alcohol abuse, denies anxiety, denies depression, denies drug abuse, denies hallucinations. (00:55 LLDO) NOTES: All systems reviewed, negative except as described above. (00:51 LLDO) PAST MEDICAL HISTORY MEDICAL HISTORY: Past medical history includes history of diabetes, Type II, Past medical history includes history of hyperlipidemia, high cholesterol, Past medical history includes history of hypertension, which has been treated, Past medical history includes pulmonary disease, chronic obstructive pulmonary disease, Notes: NON-COMPLIANT WITH MEDICATIONS, Past medical history includes cardiac history, congestive heart failure,. VERIFIEDE 09/30/16. (00:26 LWAL) FEMALE SURGICAL HISTORY: Surgical history of tonsillectomy,. VERIFIED 09/29/16. (00:26 LWAL) PSYCHIATRIC HISTORY: No previous psychiatric history, Notes: DENIES, No previous psychiatric history, Notes: DENIES. Reviewed 02/07/2015. (00:26 LWAL) SOCIAL HISTORY: Patient denies alcohol use, Patient denies drug use, Patient currently uses tobacco, smokes cigarettes, Patient smokes 1 pack per day, Social History includes VERIFIED 07-19-16, Social History includes lives alone but dad lives close, Patient drinks socially, rarely, Patient denies drug use, Patient currently uses tobacco, smokes cigarettes, daily reports 1 1/2 packs. (00:26 LWAL) NOTES: Nursing records reviewed, Agree with nursing records, Medication list reviewed. (00:55 LLDO) PHYSICAL EXAM CONSTITUTIONAL: Vital Signs Reviewed, Patient afebrile, Pulse normal, Blood pressure, BP ELEVATED SLIGHTLY, Respiratory rate, increased, 24-28, Patient appears, uncomfortable, Patient appears, in moderate pain distress, Patient alert and oriented to person, place and time, Nursing notes reviewed. (00:52 LLDO) HEAD: Head exam normal, Head exam included findings of head atraumatic, normocephalic. (00:55 LLDO) EYES: Eye exam normal, Eye exam included findings of eyelids normal to inspection, Pupils equally round and reactive to light, Extraocular muscles intact. (00:55 LLDO) ENT: ENT exam normal, Ear exam normal, Nose exam normal. (00:55 LLDO) NECK: Neck exam normal, Neck exam included findings of normal &a-1R&a+25V*p+0X*q2291D*c202B*c15G*c2P*p-0X&a-25V&a+1R Name: Lianna Crowe : 1965 F50 MedRec: [id number] AcctNum: [id number] Prepared: Sat Oct 24, 2016 02:58 by Interface Page 11 of 16 pMD [facility] EMERGENCY RECORD range of motion, Trachea midline, no meningeal signs, no tenderness. (00:55 LLDO) RESPIRATORY CHEST: Respiratory exam included findings of no respiratory distress, Rales present, Chest exam included findings of chest movement symmetrical, Chest expansion equal, no tenderness, RALES DIFFUSE AND MOD. (00:52 LLDO) CARDIOVASCULAR: Cardiovascular assessment normal, Cardiovascular exam included findings of heart rate regular rate and rhythm, Heart sounds normal. (00:55 LLDO) ABDOMEN FEMALE: Abdominal exam normal, Abdominal exam included findings of abdomen nontender, Bowel sounds normal, no peritoneal signs. (00:55 LLDO) BACK: Back exam normal, Back exam included findings of normal inspection, range of motion normal. (00:55 LLDO) UPPER EXTREMITY: Upper extremity exam normal, Upper extremity exam included findings of inspection normal, Range of motion normal. (00:55 LLDO) LOWER EXTREMITY: Lower extremity exam included findings of inspection abnormal, pedal edema, Range of motion normal, Motor strength normal, Sensation intact, Posterior tibial pulse normal, Pedal pulse normal, Rishabh's negative, Edema present, to bilateral lower extremities, pitting, +3. (00:52 LLDO) NEURO: Neuro exam normal, Neuro exam findings include patient oriented to person, place and time, Speech normal, [place] coma scale 15. (00:55 LLDO) SKIN: Skin exam normal, Skin exam included findings of skin warm, dry, and normal in color, no rash. (00:55 LLDO) PSYCHIATRIC: Psychiatric exam normal, Psychiatric exam included findings of patient oriented to person place and time, Normal affect. (00:55 LLDO) EVENTS TRANSFER: Triage to Emergency Main ED -05. (Sat Oct 24, 2016 00:25 LWAL) Removed from Emergency Main ED -05. (02:46 LWAL) DOCTOR NOTES (02:19 LLDO) TEXT: accepted by dr. Hopkins for [facility]. PATIENT PLAN: The patient requires a transfer and will be transferred. PROBLEM LIST No recorded problems DIAGNOSIS (02:25 LLDO) FINAL: PRIMARY: CHF, ADDITIONAL: addiction to tobacco, COPD UNSPECIFIED, Hypertension, OTHER HYPERLIPIDEMIA, Type 2 Diabetes mellitus (NIDDM) - uncontrolled. &a-1R&a+25V*p+0X*y6716E*c202B*c15G*c2P*p-0X&a-25V&a+1R Name: Lianna Crowe : 1965 F50 MedRec: [id number] AcctNum: [id number] Prepared: Sat Oct 24, 2016 02:58 by Interface Page 12 of 16 pMD [facility] EMERGENCY RECORD DISPOSITION PATIENT: Disposition Type: Transfer, Disposition: Transfer to [facility]. (02:23 LLDO) Disposition Transport: Ambulance, Condition: Fair, Patient left the department. (02:46 LWAL) PRESCRIPTION No recorded prescriptions IMAGING *EKG: Image captured from scanner. (01:36 EROG) *MEMORANDUM OF TRANSFER: Image captured from scanner. (02:23 EROG) EMS TRANSPORT ORDERS: Image captured from scanner. (02:23 EROG) CONSENTS: Image captured from scanner. (02:24 EROG) TRANSFER RECORD (NON-SENIOR CARE): Image captured from scanner. (02:40 EROG) Page 2 added. Image captured from scanner. (02:41 EROG) *SUPPLY CHARGE SHEET: Image captured from scanner. (02:47 LWAL) ADMIN DIGITAL SIGNATURE: ARIES Valero Eugene. (01:13 EROG) ARIES Valero Eugene. (01:37 EROG) MD Aguiar Lloyd. (02:25 LLDO) ARIES Valero Eugene. (02:41 EROG) ARIES Merritt, Sridevi. (02:52 LWAL) RESULTS LABORATORY: Magnesium Collection DT: Sat Oct 24, 2016 01:22, Magnesium 1.7 mg/dL, Range (1.6-2.6), NOTE: Higher values can be expected in females during menses . (01:46 LWAL) CK (CPK) Collection DT: Sat Oct 24, 2016 01:22, CK (CPK) 89 U/L, Range (29-168). (01:46 LWAL) Comprehensive Metabolic Panel Collection DT: Sat Oct 24, 2016 01:22, *Sodium 133 - L mmol/L, Range (136-145), Potassium 3.8 mmol/L, Range (3.5-5.1), *Chloride 93 - L mmol/L, Range (98-107), Carbon Dioxide 23 mmol/L, Range (22-29), *Anion Gap 21 - H mmol/L, Range (10-20), BUN (Urea Nitrogen) 19 mg/dL, Range (9.8-20.1), Creatinine 0.96 mg/dL, Range (0.6-1.1), Estimated GFR-MDRD 61 , Reference Range for Estimated GFR: Greater than 90, mL/min/1.73 m2 NOTE: The MDRD equation has not been validated for use, with the elderly (over 70 years of age), women, patients with, serious comorbid condition or persons with extremes of body size, muscle, mass, or nutritional status. , &a-1R&a+25V*p+0X*c2336N*c202B*c15G*c2P*p-0X&a-25V&a+1R Name: Lianna Crowe : 1965 F50 MedRec: [id number] AcctNum: [id number] Prepared: Sat Oct 24, 2016 02:58 by Interface Page 13 of 16 pMD [facility] EMERGENCY RECORD *Glucose 230 - H mg/dL, Range (70-105), Calcium 9.1 mg/dL, Range (7.8-10.44), Bilirubin, Total 0.6 mg/dL, Range (0.2-1.2), Protein, Total 6.8 g/dL, Range (6.0-8.3), NOTE: Plasma values are generally 0.3 to 0.5 g/dL higher than serum values, due to the presence of fibrinogen. , Albumin 3.5 g/dL, Range (3.5-5.0), Globulin 3.3 g/dL, Range (2.4-3.5), *Alb/Glob Ratio 1.1 - L g/dL, Range (1.2-2.2), Alkaline Phosphatase 132 U/L, Range (40-150), AST (SGOT) 12 U/L, Range (5-34), ALT (SGPT) 7 U/L, Range (0-55). (01:46 LWAL) CBC with Differential Collection DT: Sat Oct 24, 2016 01:22, White Blood Cell (WBC) Count 10.8 thou/uL, Range (4.8-10.8), *Red Blood Cell (RBC) Count 3.47 - L mill/uL, Range (4.20-5.40), *Hemoglobin 11.5 - L g/dL, Range (12.0-16.0), *Hematocrit 34.4 - L %, Range (36.0-47.0), *Mean Corpuscular Volume 99.3 - H fl, Range (81.0-99.0), *Mean Corpuscular Hemoglobin 33.1 - H pg, Range (27.0-31.0), Mean Corpuscular HGB CONC 33.4 g/dL, Range (32.0-36.0), RBC Distribution Width 13.6 %, Range (11.5-14.5), Platelet Count 288 thou/uL, Range (130-400), Mean Platelet Volume 9.0 fL, Range (7.4-10.4), *%Neutrophils 76.6 - H %, Range (42.0-75.0), *%Lymphocytes 13.1 - L %, Range (21.0-51.0), %Monocytes 6.9 %, Range (0.0-10.0), %Eosinophils 2.0 %, Range (0.0-10.0), *%Basophils 1.4 - H %, Range (0.0-1.0), *#Neutrophils 8.3 - H thou/uL, Range (1.40-6.50), #Lymphocytes 1.4 thou/uL, Range (1.20-3.40), *#Monocytes 0.8 - H thou/uL, Range (0.11-0.59), #Eosinphils 0.2 thou/uL, Range (0.0-0.7), #Basophils 0.1 thou/uL, Range (0.0-0.2). (01:46 LWAL) B type Natriuretic Peptide Collection DT: [facility] Oct 24, 2016 01:22, *B type Natriuretic Peptide 2313.2 - H pg/mL, Range (0-100). (01:56 LWAL) Cardiac Profile w/CKMB & TropI Collection DT: [facility] Oct 24, 2016 01:22, CKMB 2.9 ng/mL, Range (0-6.6), Troponin I 0.013 ng/mL, Range (< 0.028), Reference Range , 0.00 - 0.028 ng/mL Negative 0.029 - 0.29 ng/mL , Indeterminate Greater or Equal to 0.3 ng/mL Strongly suggests AR , . (01:56 LWAL) D-Dimer (Quantitative) Collection DT: [facility] Oct 24, 2016 01:22, See comment below , Anticoagulant? NONE Medical Necessity SUSPECT COAGULOPATHY , *D-Dimer Test 1.29 - H *mcg/mL, Range (0.27-0.43), * Reference &a-1R&a+25V*p+0X*b3485X*c202B*c15G*c2P*p-0X&a-25V&a+1R Name: Lianna Crowe : 1965 F50 MedRec: [id number] AcctNum: [id number] Prepared: [facility] Oct 24, 2016 02:58 by Interface Page 14 of 16 pMD [facility] EMERGENCY RECORD Range Units: mcg/mL of fibrinogen equivalent, units(FEU) Based upon a retrospective study of [facility] patients in February 2006, a result of Less than 0.44 mcg/mL FEU is, predictive of the absence of a DVT or PE. . (02:02 LWAL) PTT Collection DT: [facility] Oct 24, 2016 01:22, See comment below , Anticoagulant? NONE Medical Necessity SUSPECT COAGULOPATHY , PTT 29.2 SEC, Range (22.9-36.1). (02:02 LWAL) Protime with INR Collection DT: [facility] Oct 24, 2016 01:22, See comment below , Anticoagulant? NONE Medical Necessity SUSPECT COAGULOPATHY , Prothrombin Time 14.7 SEC, Range (12.0-14.7), INR-International Normal Ratio 1.1 , ATTENTION: READ CAREFULLY , The, recommended therapeutic ranges for oral anticoagulant treatments are: , , Low Intensity: 1.5 - 2.0 Moderate Intensity: 2.0, - 3.0 High Intensity (1): 2.5 - 3.5 High, Intensity (2): 3.0 - 4.0 CRITICAL: >, 4.0 . (02:02 LWAL) Urine Microscopic Collection DT: Sat Oct 24, 2016 02:05, *RBC/HPF 11-20 - H HPF, Range (0-3), *WBC/HPF 4-6 - H HPF, Range (0-3), *Squamous Epithelial 4-6 - H HPF, Range (0-3), Transitional Epithelial 0-3 HPF, Range (0-3), Renal Epithelial 0-3 HPF, Range (0-3), Bacteria/HPF Rare-Few HPF, Range (None Seen), Yeast-All Forms Rare HPF, Range (None Seen). (02:13 LWAL) Urinalysis w/ Rflx Microscopic Collection DT: Sat Oct 24, 2016 02:05, Color Yellow , Range (Yellow), Clarity Clear , Range (Clear), Specific [place], Urine 1.015 , Range (1.005-1.030), pH, Urine 6.5 , Range (5.0-9.0), Leukocyte Negative , Range (Negative), Nitrite Negative , Range (Negative), *Protein, Urine (Dipstick) 100 - H mg/dL, Range (Neg-Trace), Glucose, Urine (Dipstick) Negative mg/dL, Range (Negative), Ketone, Urine Negative mg/dL, Range (Negative), Urobilinogen 0.2 mg/dL, Range (0.2-1.0), &a-1R&a+25V*p+0X*u1270I*c202B*c15G*c2P*p-0X&a-25V&a+1R Name: Lianna Crowe : 1965 [facility] MedRec: [id number] AcctNum: [id number] Prepared: Sat Oct 24, 2016 02:58 by Interface Page 15 of 16 pMD [facility] EMERGENCY RECORD Bilirubin Negative , Range (Negative), *Blood, Urine Small - H , Range (Negative). (02:13 LWAL) Acosta: EROG=ARIES Valero, Brent LLDO=MD Stefania, Valentin LWAL=ARIES Merritt, Sridevi &a-1R&a+25V*p+0X*n7085B*c202B*c15G*c2P*p-0X&a-25V&a+1R Name: Lianna Crowe : 1965 [facility] MedRec: [id number] AcctNum: [id number] Prepared: Sat Oct 24, 2016 02:58 by Interface Page 16 of 16 pMD MTDD
[2016-10-24] MEDS ORDERED: Nitroglycerin 0.4 MG TAB 1 EACH ONE (07:30)
--- NOTE | 2016-10-24 08:06 | RAD ---
AP VIEW CHEST: HISTORY: Cardiomegaly, dyspnea. DATE: 10/24/16. COMPARISON: Comparison is made to previous exam from 07/05/16. FINDINGS: AP view chest demonstrates cardiomegaly noted. Mild pulmonary vascular congestion is seen. No evid ence of effusions, pneumonia, or pneumothorax is seen. IMPRESSION: Cardiomegaly and pulmonary vascular congestion. POS: H
== END 2016-10-24 02:39 | disposition short-term general hospital (02) ==
LOC: MADERS 00:13
DX: I50.9 Heart failure, unspecified (principal); F17.210 Nicotine dependence, cigarettes, uncomplicated; J44.9 Chronic obstructive pulmonary disease, unspecified; I10 Essential (primary) hypertension; E78.4 Other hyperlipidemia; E11.9 Type 2 diabetes mellitus without complications
CPT/HCPCS: 36415; 36416; 51702; 71010; 80053; 81003; 81015; 82553; 83735; 83880; 84484; 85025; 85379; 85610; 85730; 87086; 93005; 94760; 96374; 96375; J1940; J2405

== ENCOUNTER 2016-11-04 07:26 | Emergency (ER) | payer OTHER, SELFPAY ==
[2016-11-04] MEDS ORDERED: Ketorolac Tromethamine 60 MG/2 ML VIAL ONE (07:54)
[2016-11-04] MEDS ORDERED: Cyclobenzaprine 10 MG TAB ONE (07:54)
--- NOTE | 2016-11-04 08:02 | ERRECORD ---
[facility] EMERGENCY RECORD HPI SHOULDER (07:48 BPIC) CHIEF COMPLAINT: Patient presents for evaluation of pain, to the right shoulder. HISTORIAN: History provided by patient, pt with hx of chf, recently discharged from [facility] who pw right shoulder pain and radiating arm pain and weakness on the right. 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 the sharp pain shoots down her right arm into her elbow and hand. she also feels like she cannot move the arm and limited in the hand because of the pain. has not tried anything for relief. she states that she has been taking her medication as prescribed while in the hospital. ROS (07:50 BPIC) CONSTITUTIONAL: Negative constitutional review of systems. EYES: Negative eye review of systems. ENT: Negative ears, nose, throat review of systems. CARDIOVASCULAR: Negative cardiovascular review of systems. RESPIRATORY: Negative respiratory review of systems. GI: Negative gastrointestinal review of systems. MUSCULOSKELETAL: see hpi. SKIN: Negative skin review of systems. PSYCHIATRIC: Negative psychiatric review of systems. PAST MEDICAL HISTORY MEDICAL HISTORY: Past medical history includes history of diabetes, Type II, Past medical history includes history of hyperlipidemia, high cholesterol, Past medical history includes history of hypertension, which has been treated, Past medical history includes pulmonary disease, chronic obstructive pulmonary disease, Past medical history includes cardiac history, congestive heart failure verified with patient on 10/24/16. (08:01 SFRE) FEMALE SURGICAL HISTORY: Surgical history of tonsillectomy / Heart Cath with no stents placed verified with patient on 10/24/16. (08:01 SFRE) PSYCHIATRIC HISTORY: Psychiatric history includes, anxiety, depression. (08:01 SFRE) SOCIAL HISTORY: Patient drinks socially, rarely, Patient denies drug use, Patient currently uses tobacco, smokes cigarettes, daily, Patient smokes 1 pack per day, Lives at home, alone. (08:01 SFRE) NOTES: I have reviewed and agree with the PMH/PSxH/FamHx/SocHx obtained by the nurse. (07:50 BPIC) KNOWN ALLERGIES No Known Allergies (Unconfirmed) No Known Drug Allergies CURRENT MEDICATIONS (07:38 SFRE) Lasix: &a-1R&a+25V*p+0X*c0453L*c202B*c15G*c2P*p-0X&a-25V&a+1R Name: Lianna Crowe : 1965 F50 MedRec: [id number] AcctNum: [id number] Prepared: WedNov 04, 2016 13:13 by Interface Page 1 of 4 pMD [facility] EMERGENCY RECORD TABLET : Strength - 40 mg : ORAL Patient Dose: 1 tab(s) Oral See Notes.one tablet twice a day (morning and afternoon) for a week and then once a day in the morning until after you see your primary care physician. lisinopril: TABLET : Strength - 5 mg : ORAL Patient Dose: 20 mg Oral once a day. metFORMIN: TABLET : Strength - 850 mg : ORAL Patient Dose: 1000 mg Oral 2 times a day. FLUoxetine: CAPSULE : Strength - 20 mg : ORAL Patient Dose: Unknown. Coreg: TABLET : Strength - 6.25 mg : ORAL Patient Dose: 0 Oral 2 times a day.DOSE UNKNOWN. K-Dur: TABLET, EXT RELEASE, PARTICLES/CRYSTALS : Strength - 20 mEq : ORAL Patient Dose: 1 tab(s) Oral once a day (in the morning). VITAL SIGNS (07:36 SFRE) VITAL SIGNS: BP: 142/85, Pulse: 78, Resp: 18, Temp: 97.8 (Tympanic), Pain: 10 (Sharp), O2 sat: 98 on Room Air, Time: 11/04/2016 07:36. PHYSICAL EXAM CONSTITUTIONAL: Vital signs reviewed, Patient afebrile, Pulse normal, Blood pressure normal, Respiratory rate normal, Patient appears non toxic, Patient appears pain free, Patient alert and oriented to person, place and time. (07:50 BPIC) HEAD: Head exam included findings of head atraumatic, normocephalic. (07:50 BPIC) EYES: Eye exam included findings of eyelids normal to inspection, Extraocular muscles intact, Conjunctiva normal. (07:50 BPIC) ENT: Ear exam normal, Nose exam normal. (07:50 BPIC) NECK: Neck exam included findings of normal range of motion, Trachea midline. (07:50 BPIC) RESPIRATORY CHEST: Respiratory exam included findings of no respiratory distress, Chest exam included findings of chest movement symmetrical, Chest expansion equal. (07:50 BPIC) CARDIOVASCULAR: Cardiovascular exam included findings of heart rate regular rate and rhythm. (07:50 BPIC) UPPER EXTREMITY: Right shoulder exam included findings of, active range of motion abnormal, passive range of motion abnormal, distal pulses normal, capillary refill less than 2 seconds, distal sensory intact, right hand platemaker is slightly weaker than left, Left shoulder unaffected. (07:51 BPIC) NEURO: Neuro exam findings include patient oriented to person, place and time, Speech normal. (07:50 BPIC) &a-1R&a+25V*p+0X*m3395G*c202B*c15G*c2P*p-0X&a-25V&a+1R Name: Lianna Crowe : 1965 F50 MedRec: [id number] AcctNum: [id number] Prepared: WedNov 04, 2016 13:13 by Interface Page 2 of 4 pMD [facility] EMERGENCY RECORD PSYCHIATRIC: Psychiatric exam included findings of patient oriented to person place and time, Normal affect. (07:50 BPIC) MEDICATION ADMINISTRATION SUMMARY Drug Name: traMADol, Dose Ordered: 50 mg, Route: Oral, Status: Given, Time: 08:30 11/04/2016, Drug Name: ketorolac intramuscular, Dose Ordered: 60 mg, Route: Intramuscular, Status: Given, Time: 07:59 11/04/2016, Drug Name: Flexeril, Dose Ordered: 5 mg, Route: Oral, Status: Given, Time: 07:58 11/04/2016, Detailed record available in Medication Service section. DOCTOR NOTES (07:53 BPIC) TEXT: Rt trapezius strain with muscle spasm along with cervical radiculopathy. toradol and flexeril given here and flexeril and ibuprofen Rx I discussed the diagnosis with the patient prior to discharge. All questions were answered. There is no indication for admission currently and the patient will follow up with a primary care physician. Any pertinent labs or imaging were reviewed and dicussed with the patient. If any new or emergent symptoms occur, the patient will return to the emergency department. PROBLEM LIST No recorded problems DIAGNOSIS (07:54 BPIC) FINAL: PRIMARY: right trapezius strain, ADDITIONAL: cervical radiculopathy, muscle spasm. PRESCRIPTION Flexeril: TABLET : 5 mg : ORAL : Quantity: 5 Unit: mg Route: ORAL Schedule: every 8 hours PRN Dispense: 30 Unit: tab(s) May substitute. Refills: No Refills . (07:54 BPIC) NOTES: No Refills. (07:54 BPIC) ibuprofen: TABLET : 800 mg : ORAL : Quantity: 800 Unit: mg Route: ORAL Schedule: every 8 hours PRN Dispense: 60 Unit: tab(s) May substitute. Refills: No Refills POTENTIAL CONTRAINDICATED INTERACTION: ketorolac intramuscular (ketorolac tromethamine) Override Rationale: Reviewed with patient. (07:54 BPIC) NOTES: ^s=No Refills No Refills. (07:54 BPIC) traMADol: TABLET : 50 mg : ORAL : Quantity: 50 Unit: mg Route: ORAL Schedule: every 6 hours PRN Dispense: 20 Unit: tab(s) May substitute. Refills: No Refills &a-1R&a+25V*p+0X*g6197K*c202B*c15G*c2P*p-0X&a-25V&a+1R Name: Lianna Crowe : 1965 F50 MedRec: [id number] AcctNum: [id number] Prepared: WedNov 04, 2016 13:13 by Interface Page 3 of 4 pMD [facility] EMERGENCY RECORD POTENTIAL SEVERE INTERACTION: Flexeril Override Rationale: Reviewed with patient. (08:25 BPIC) NOTES: No Refills. (08:25 BPIC) DISPOSITION PATIENT: Disposition Type: Discharge, Disposition: *Discharge Home, Condition: Good. (07:54 BPIC) Patient left the department. (08:33 SFRE) Acosta: BPIC=MD Sarah, Cain SFRE=ARIES Bird, Selina &a-1R&a+25V*p+0X*c0788S*c202B*c15G*c2P*p-0X&a-25V&a+1R Name: Lianna Crowe : 1965 F50 MedRec: [id number] AcctNum: [id number] Prepared: Viv Nov 04, 2016 13:13 by Interface Page 4 of 4 pMD MTDD
--- NOTE | 2016-11-04 08:08 | PICIS ---
[facility] EMERGENCY RECORD TRIAGE (WedNov 04, 2016 07:38 SFRE) TRIAGE NOTES: RIGHT ARM PAIN. (WedNov 04, 2016 07:38 SFRE) PATIENT: NAME: Lianna Crowe, AGE: 50, GENDER: female, : Wed1965, TIME OF GREET: WedNov 04, 2016 07:27, PREFERRED LANGUAGE: Maltese, ETHNICITY: Not or , FALL RISK: NO, ECODE BILLING MAP: [facility], SSN: [id number], Zip Code: [address], KG WEIGHT: [phone], PHONE: , , , PERSON ID: [id number], PCP: DO Seaman Hillary. (WedNov 04, 2016 07:38 SFRE) COMPLAINT: RT ARM PAIN. (WedNov 04, 2016 07:38 SFRE) ADMISSION: URGENCY: 3 Urgent, ADMISSION SOURCE: Home, TRANSPORT: Walk-in, BED: ED -03. (WedNov 04, 2016 07:38 SFRE) ASSESSMENT: Symptoms began 11/04/2016 0715, Symptoms began 1 hour ago. 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 (08:01 SFRE) IMMUNIZATIONS: Flu vaccine not up to date. (08:01 SFRE) SIRS SCORING: Heart Rate 55-109 (0), Temp range 96.8-101.1 (0), respiratory rate 12-24 (0), Mental Status altered: no (0). (08:01 SFRE) TRIAGE SCREENING: Patient denies suicidal ideation, Patient denies presence of domestic violence. (08:01 SFRE) PROVIDERS: TRIAGE NURSE: Selina Bird RN. (WedNov 04, 2016 07:38 SFRE) VITAL SIGNS: BP 142/85, Pulse 78, Resp 18, Temp 97.8, (Tympanic), Pain 10, (Sharp), O2 Sat 98, on Room Air, Time 11/04/2016 07:36. (07:36 SFRE) PREVIOUS VISIT ALLERGIES: No Known Drug Allergies. (WedNov 04, 2016 07:38 SFRE) No Known Drug Allergies. (08:01 SFRE) KNOWN ALLERGIES No Known Allergies (Unconfirmed) No Known Drug Allergies CURRENT MEDICATIONS (07:38 SFRE) Lasix: TABLET : Strength - 40 mg : ORAL Patient Dose: 1 tab(s) Oral See Notes.one tablet twice a day (morning and afternoon) for a week and then once a day in the morning until after you see your primary care physician. lisinopril: TABLET : Strength - 5 mg : ORAL Patient Dose: 20 mg Oral once a day. metFORMIN: &a-1R&a+25V*p+0X*t7661Y*c202B*c15G*c2P*p-0X&a-25V&a+1R Name: Lianna Crowe : 1965 F50 MedRec: [id number] AcctNum: [id number] Prepared: WedNov 04, 2016 13:19 by Interface Page 1 of 7 pMD [facility] EMERGENCY RECORD TABLET : Strength - 850 mg : ORAL Patient Dose: 1000 mg Oral 2 times a day. FLUoxetine: CAPSULE : Strength - 20 mg : ORAL Patient Dose: Unknown. Coreg: TABLET : Strength - 6.25 mg : ORAL Patient Dose: 0 Oral 2 times a day.DOSE UNKNOWN. K-Dur: TABLET, EXT RELEASE, PARTICLES/CRYSTALS : Strength - 20 mEq : ORAL Patient Dose: 1 tab(s) Oral once a day (in the morning). VITAL SIGNS (07:36 SFRE) VITAL SIGNS: BP: 142/85, Pulse: 78, Resp: 18, Temp: 97.8 (Tympanic), Pain: 10 (Sharp), O2 sat: 98 on Room Air, Time: 11/04/2016 07:36. NURSING ASSESSMENT: EXTREMITY UPPER (07:45 SFRE) CONSTITUTIONAL: Patient arrives ambulatory, Gait steady, History obtained from patient, Patient appears, in distress due to pain, Patient cooperative, Patient alert, Oriented to person, place and time, Skin warm, Skin dry, Skin normal in color, Mucous membranes pink, Mucous membranes moist, Patient, poorly groomed, Patient complains of PAIN TO RUE. PAIN: sharp pain, shooting pain, to the right shoulder, to the right upper arm, to the right elbow, to the right forearm, to the right wrist, to the right hand, Pain radiates, FROM RIGHT SIDE OF NECK DOWN RIGHT ARM, Pain exacerbated by, lifting, Nothing has been tried to alleviate the pain. RIGHT UPPER EXTREMITY: Right upper extremity assessment findings include capillary refill less than 2 seconds, Skin color normal to hand, Skin temperature to hand warm, Distal sensation intact, Muscle tone normal, Notes: DENIES INJURY. NURSING PROCEDURE: DISCHARGE NOTE (08:31 SFRE) DISCHARGE: Patient discharged to home, ambulating without assistance, family driving, accompanied by //partner, Summary of Care printed/ provided, Patient requested and was provided an electronic copy of Discharge Instructions, Discharge instructions given to patient, Simple or moderate discharge teaching performed, by ARIES TAVAREZ, F/U WITH PCP. RX DIRECTED. RETURN TO ED NEEDED FOR NEW/CONCERNING OR WORSENING SYMPTOMS., Prescriptions given and instructions on side effects given, Name of prescription(s) given: IBUPROFEN, FLEXERIL, TRAMADOL, Above person(s) verbalized understanding of discharge instructions and follow-up care. NURSING PROCEDURE: NURSE NOTES NURSES NOTES: Notes: PATIENT REQUESTING A STRONGER &a-1R&a+25V*p+0X*u3179Q*c202B*c15G*c2P*p-0X&a-25V&a+1R Name: Lianna Crowe : 1965 F50 MedRec: [id number] AcctNum: [id number] Prepared: WedNov 04, 2016 13:19 by Interface Page 2 of 7 pMD [facility] EMERGENCY RECORD MEDICATION "SOMETHING TO KNOCK ME OUT, I CAN'T STAND THIS" EXPLAINED TO PATIENT THAT SHE HAS A RX FROM THE OTHER DAY FOR TRAMADOL AND TO TAKE THAT WELL. PT STATES "I ONLY HAVE A FEW", DR BRAR NOTIFIED. (08:17 SFRE) Notes: DR BRAR IN TO TALK WITH PATIENT ABOUT PAIN CONTROL. (08:22 SFRE) NURSING PROCEDURE: SPLINTING (08:31 SFRE) SPLINTING: Splinting indicated for pain control, Splint applied to, the right forearm, by ARIES TAVAREZ, sling applied, Immobilized in position of comfort. MEDICATION ADMINISTRATION SUMMARY Drug Name: traMADol, Dose Ordered: 50 mg, Route: Oral, Status: Given, Time: 08:30 11/04/2016, Drug Name: ketorolac intramuscular, Dose Ordered: 60 mg, Route: Intramuscular, Status: Given, Time: 07:59 11/04/2016, Drug Name: Flexeril, Dose Ordered: 5 mg, Route: Oral, Status: Given, Time: 07:58 11/04/2016, Detailed record available in Medication Service section. MEDICATION SERVICE Flexeril: Order: Flexeril (cyclobenzaprine HCl) - Dose: 5 mg : Oral Schedule: Now Ordered by: Cain Brar MD Entered by: Cain Brar MD WedNov 04, 2016 07:48 , Acknowledged by: Selina Bird RN WedNov 04, 2016 07:54 Documented as given by: Selina Bird RN WedNov 04, 2016 07:58 Patient, Medication, Dose, Route and Time verified prior to administration. Amount given: 5mg, Site: Medication administered P.O., Correct patient, time, route, dose and medication confirmed prior to administration, Patient advised of actions and side-effects prior to administration, Allergies confirmed and medications reviewed prior to administration, Patient in position of comfort, Side rails up, Cart in lowest position, Family at bedside. ketorolac intramuscular: Order: ketorolac intramuscular (ketorolac tromethamine) - Dose: 60 mg : Intramuscular Ordered by: Cain Brar MD Entered by: Cain Brar MD WedNov 04, 2016 07:48 , Acknowledged by: Selina Bird RN WedNov 04, 2016 07:54 Documented as given by: Selina Bird RN WedNov 04, 2016 07:59 Patient, Medication, Dose, Route and Time verified prior to administration. IM medication, Amount given: 60mg, Medication administered to right hip, Patient appears Awake and alert- acceptable, Correct patient, time, route, dose and medication confirmed prior to administration, Patient advised of actions and side-effects prior to administration, &a-1R&a+25V*p+0X*c8965N*c202B*c15G*c2P*p-0X&a-25V&a+1R Name: Lianna Crowe : 1965 F50 MedRec: [id number] AcctNum: [id number] Prepared: WedNov 04, 2016 13:19 by Interface Page 3 of 7 pMD [facility] EMERGENCY RECORD Allergies confirmed and medications reviewed prior to administration, Patient in position of comfort, Side rails up, Cart in lowest position, Family at bedside. traMADol: Order: traMADol (tramadol HCl) - Dose: 50 mg : Oral POTENTIAL SEVERE INTERACTION: Flexeril (cyclobenzaprine HCl) - Reviewed with patient Ordered by: Cain Brar MD Entered by: Cain Brar MD WedNov 04, 2016 08:25 Documented as given by: Selina Bird RN WedNov 04, 2016 08:30 Patient, Medication, Dose, Route and Time verified prior to administration. Amount given: 50MG, Site: Medication administered P.O., Correct patient, time, route, dose and medication confirmed prior to administration, Patient advised of actions and side-effects prior to administration, Allergies confirmed and medications reviewed prior to administration, Patient in position of comfort, Side rails up, Cart in lowest position, Family at bedside. HPI SHOULDER (07:48 BPIC) CHIEF COMPLAINT: Patient presents for evaluation of pain, to the right shoulder. HISTORIAN: History provided by patient, pt with hx of chf, recently discharged from [facility] who pw right shoulder pain and radiating arm pain and weakness on the right. 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 the sharp pain shoots down her right arm into her elbow and hand. she also feels like she cannot move the arm and limited in the hand because of the pain. has not tried anything for relief. she states that she has been taking her medication as prescribed while in the hospital. ROS (07:50 BPIC) CONSTITUTIONAL: Negative constitutional review of systems. EYES: Negative eye review of systems. ENT: Negative ears, nose, throat review of systems. CARDIOVASCULAR: Negative cardiovascular review of systems. RESPIRATORY: Negative respiratory review of systems. GI: Negative gastrointestinal review of systems. MUSCULOSKELETAL: see hpi. SKIN: Negative skin review of systems. PSYCHIATRIC: Negative psychiatric review of systems. PAST MEDICAL HISTORY MEDICAL HISTORY: Past medical history includes history of diabetes, Type II, Past medical history includes history of hyperlipidemia, high cholesterol, Past medical history includes history of hypertension, which has been treated, Past medical history includes pulmonary disease, chronic obstructive pulmonary disease, Past medical history includes cardiac history, congestive heart &a-1R&a+25V*p+0X*o0273Q*c202B*c15G*c2P*p-0X&a-25V&a+1R Name: Lianna Crowe : 1965 F50 MedRec: [id number] AcctNum: [id number] Prepared: WedNov 04, 2016 13:19 by Interface Page 4 of 7 pMD [facility] EMERGENCY RECORD failure verified with patient on 10/24/16. (08:01 SFRE) FEMALE SURGICAL HISTORY: Surgical history of tonsillectomy / Heart Cath with no stents placed verified with patient on 10/24/16. (08:01 SFRE) PSYCHIATRIC HISTORY: Psychiatric history includes, anxiety, depression. (08:01 SFRE) SOCIAL HISTORY: Patient drinks socially, rarely, Patient denies drug use, Patient currently uses tobacco, smokes cigarettes, daily, Patient smokes 1 pack per day, Lives at home, alone. (08:01 SFRE) NOTES: I have reviewed and agree with the PMH/PSxH/FamHx/SocHx obtained by the nurse. (07:50 BPIC) PHYSICAL EXAM CONSTITUTIONAL: Vital signs reviewed, Patient afebrile, Pulse normal, Blood pressure normal, Respiratory rate normal, Patient appears non toxic, Patient appears pain free, Patient alert and oriented to person, place and time. (07:50 BPIC) HEAD: Head exam included findings of head atraumatic, normocephalic. (07:50 BPIC) EYES: Eye exam included findings of eyelids normal to inspection, Extraocular muscles intact, Conjunctiva normal. (07:50 BPIC) ENT: Ear exam normal, Nose exam normal. (07:50 BPIC) NECK: Neck exam included findings of normal range of motion, Trachea midline. (07:50 BPIC) RESPIRATORY CHEST: Respiratory exam included findings of no respiratory distress, Chest exam included findings of chest movement symmetrical, Chest expansion equal. (07:50 BPIC) CARDIOVASCULAR: Cardiovascular exam included findings of heart rate regular rate and rhythm. 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 (07:51 BPIC) NEURO: Neuro exam findings include patient oriented to person, place and time, Speech normal. (07:50 BPIC) PSYCHIATRIC: Psychiatric exam included findings of patient oriented to person place and time, Normal affect. (07:50 BPIC) EVENTS TRANSFER: Triage to Emergency Main ED -03. (WedNov 04, 2016 07:38 SFRE) Removed from Emergency Main ED -03. (08:33 SFRE) DOCTOR NOTES (07:53 BPIC) TEXT: Rt trapezius strain with muscle spasm along with cervical radiculopathy. toradol and flexeril given here and flexeril and ibuprofen Rx &a-1R&a+25V*p+0X*k2793L*c202B*c15G*c2P*p-0X&a-25V&a+1R Name: Lianna Crowe : 1965 F50 MedRec: [id number] AcctNum: [id number] Prepared: WedNov 04, 2016 13:19 by Interface Page 5 of 7 pMD [facility] EMERGENCY RECORD I discussed the diagnosis with the patient prior to discharge. All questions were answered. There is no indication for admission currently and the patient will follow up with a primary care physician. Any pertinent labs or imaging were reviewed and dicussed with the patient. If any new or emergent symptoms occur, the patient will return to the emergency department. PROBLEM LIST No recorded problems DIAGNOSIS (07:54 BPIC) FINAL: PRIMARY: right trapezius strain, ADDITIONAL: cervical radiculopathy, muscle spasm. DISPOSITION PATIENT: Disposition Type: Discharge, Disposition: *Discharge Home, Condition: Good. (07:54 BPIC) Patient left the department. (08:33 SFRE) INSTRUCTION (07:55 BPIC) DISCHARGE: CERVICAL RADICULOPATHY, MUSCLE STRAIN CERVICAL. FOLLOWUP: DO Seaman Hillary, [facility], [address] [place], [place] [id number], . SPECIAL: Thank you for choosing [facility] for your care today! Please follow up with your doctor in the next 2-3 days. Return to the emergency department with any emergent or worsening concerns. God Bless you!. PRESCRIPTION Flexeril: TABLET : 5 mg : ORAL : Quantity: 5 Unit: mg Route: ORAL Schedule: every 8 hours PRN Dispense: 30 Unit: tab(s) May substitute. Refills: No Refills . (07:54 BPIC) NOTES: No Refills. (07:54 BPIC) ibuprofen: TABLET : 800 mg : ORAL : Quantity: 800 Unit: mg Route: ORAL Schedule: every 8 hours PRN Dispense: 60 Unit: tab(s) May substitute. Refills: No Refills POTENTIAL CONTRAINDICATED INTERACTION: ketorolac intramuscular (ketorolac tromethamine) Override Rationale: Reviewed with patient. (07:54 BPIC) NOTES: ^s=No Refills No Refills. (07:54 BPIC) traMADol: TABLET : 50 mg : ORAL : Quantity: 50 Unit: mg Route: ORAL Schedule: every 6 hours PRN Dispense: 20 Unit: tab(s) May substitute. Refills: No Refills POTENTIAL SEVERE INTERACTION: Flexeril Override Rationale: Reviewed with patient. (08:25 BPIC) NOTES: No Refills. (08:25 BPIC) &a-1R&a+25V*p+0X*t9100E*c202B*c15G*c2P*p-0X&a-25V&a+1R Name: Lianna Crowe : 1965 F50 MedRec: [id number] AcctNum: [id number] Prepared: WedNov 04, 2016 13:19 by Interface Page 6 of 7 pMD [facility] EMERGENCY RECORD IMAGING (08:28 SFRE) *DISCHARGE INSTRUCTIONS RECEIPT: Image captured from scanner. *SUPPLY CHARGE SHEET: Image captured from scanner. ADMIN DIGITAL SIGNATURE: MD Brar Bryan. (07:54 BPIC) ARIES Bird, Selina. (08:32 SFRE) MD Brar Bryan. (13:08 BPIC) Acosta: BPIC=MD Brar Bryan SFRE=ARIES Bird Stacey &a-1R&a+25V*p+0X*n0317P*c202B*c15G*c2P*p-0X&a-25V&a+1R Name: Lianna Crowe : 1965 F50 MedRec: [id number] AcctNum: [id number] Prepared: WedNov 04, 2016 13:19 by Interface Page 7 of 7 pMD [facility]
[2016-11-04] MEDS ORDERED: traMADol HCl 50 MG TAB ONE (08:25)
== END 2016-11-04 08:32 | disposition home or self-care (01) ==
LOC: MADERS 07:26
DX: S46.811A Strain of other muscles, fascia and tendons at shoulder and upper arm level, right arm, initial encounter (principal); M54.12 Radiculopathy, cervical region; M62.838 Other muscle spasm; E11.9 Type 2 diabetes mellitus without complications; E78.5 Hyperlipidemia, unspecified; E78.00 Pure hypercholesterolemia, unspecified; I11.0 Hypertensive heart disease with heart failure; I50.9 Heart failure, unspecified; J44.9 Chronic obstructive pulmonary disease, unspecified; F17.210 Nicotine dependence, cigarettes, uncomplicated; F41.9 Anxiety disorder, unspecified; F32.9 Major depressive disorder, single episode, unspecified; X58.XXXA Exposure to other specified factors, initial encounter
CPT/HCPCS: 96372; J1885

== ENCOUNTER 2017-01-24 18:43 | Emergency (ER) | payer OTHER, SELFPAY ==
[2017-01-24 19:23] LABS: INR-International Normal Ratio 0.9; PTT 28.2 SEC (22.9-36.1); Prothrombin Time 12.8 SEC (12.0-14.7)
[2017-01-24 19:24] LABS: #Basophils 0.1 thou/uL (0.0-0.2); #Eosinphils 0.1 thou/uL (0.0-0.7); #Lymphocytes 1.7 thou/uL (1.20-3.40); #Monocytes 0.7 thou/uL (0.11-0.59); #Neutrophils 5.7 thou/uL (1.40-6.50); %Eosinophils 0.8 % (0.0-10.0); %Lymphocytes 20.6 % (21.0-51.0); %Monocytes 8.7 % (0.0-10.0); %Neutrophils 68.8 % (42.0-75.0); Hemoglobin 13.1 g/dL (12.0-16.0); Mean Corpuscular HGB CONC 33.4 g/dL (32.0-36.0); Mean Corpuscular Hemoglobin 31.3 pg (27.0-31.0); Mean Corpuscular Volume 93.9 fl (81.0-99.0); Mean Platelet Volume 7.8 fL (7.4-10.4); Platelet Count 239 thou/uL (130-400); RBC Distribution Width 13.4 % (11.5-14.5); Red Blood Cell (RBC) Count 4.17 mill/uL (4.20-5.40); White Blood Cell (WBC) Count 8.3 thou/uL (4.8-10.8)
[2017-01-24 19:36] LABS: ALT (SGPT) 13 U/L (0-55); AST (SGOT) 13 U/L (5-34); Albumin 3.7 g/dL (3.5-5.0); Alkaline Phosphatase 95 U/L (40-150); Anion Gap 18 mmol/L (10-20); BUN (Urea Nitrogen) 21 mg/dL (9.8-20.1); Bilirubin, Total 0.3 mg/dL (0.2-1.2); CK (CPK) 61 U/L (29-168); Calc. Creatinine Clearance 0 mL/min (70-130); Calcium 9.5 mg/dL (7.8-10.44); Carbon Dioxide 26 mmol/L (22-29); Chloride 98 mmol/L (98-107); Estimated GFR-MDRD 58; Globulin 3.1 g/dL (2.4-3.5); Glucose 287 mg/dL (70-105); Magnesium 1.7 mg/dL (1.6-2.6); Potassium 3.9 mmol/L (3.5-5.1); Protein, Total 6.8 g/dL (6.0-8.3); Sodium 138 mmol/L (136-145)
[2017-01-24 19:42] LABS: CKMB 3.6 ng/mL (0-6.6); Troponin I Less than 0.010 ng/mL (< 0.028)
[2017-01-24] MEDS ORDERED: Ondansetron HCl/PF 4 MG/2 ML Vial ONE (19:48)
[2017-01-24] MEDS ORDERED: Aspirin 325 MG TAB ONE (19:48)
[2017-01-24] MEDS ORDERED: Ketorolac Tromethamine 30 MG/ML VIAL ONE (19:48)
[2017-01-24] MEDS ORDERED: Morphine Sulfate 2 MG/ML SYRINGE ONE (20:16)
--- NOTE | 2017-01-24 20:43 | RAD ---
PORTABLE AP CHEST X-RAY 01/24/2017 HISTORY: Chest pain. COMPARISON: 10/24/2016 FINDINGS: The cardiac silhouette is magnified by projection but stable in size. Calcified granuloma again ove rly the left lung base. The lungs are otherwise clear. No other interval change. IMPRESSION: No acute cardiopulmonary process. POS: [facility]
[2017-01-24] MEDS ORDERED: Cephalexin 500 MG CAP ONE (22:00)
[2017-01-24] MEDS ORDERED: Adacel (T-DAP) 0.5 ML VIAL ONE (22:01)
[2017-01-24] MEDS ORDERED: Triple Antibiotic Oint 1 GM Packet ONE (22:03)
[2017-01-24 22:45] LABS: Blood, Urine Small (Negative); Clarity Slightly Cloudy (Clear); Glucose, Urine (Dipstick) Negative (Negative); Leukocyte Large (Negative); Nitrite Negative (Negative); Protein, Urine (Dipstick) > or equal to 300 mg/dL (Neg-Trace); Specific Gravity, Urine 1.025 (1.005-1.030); Urobilinogen 0.2 mg/dL (0.2-1.0); pH, Urine 5.5 (5.0-9.0)
[2017-01-24 22:51] LABS: Amylase 67 U/L (25-125); Lipase 37 U/L (8-78)
[2017-01-24 22:52] LABS: Bilirubin Small (Negative); Icto Negative (Negative)
[2017-01-24 22:53] LABS: Bacteria/HPF 2+ HPF (None Seen); Crystals/HPF 1+ AMORPH URATES HPF (Negative); Hyaline Casts/LPF 7-10 HYALINE CAST LPF (0-3 Hyaline); Other Casts/LPF 7-10 MIXED CASTS LPF (0-3 Hyaline); Renal Epithelial 0-3 HPF (0-3); Transitional Epithelial 0-3 HPF (0-3)
== END 2017-01-24 23:40 | disposition home or self-care (01) ==
LOC: MADERS 18:43
DX: I11.0 Hypertensive heart disease with heart failure (principal); I50.9 Heart failure, unspecified; I73.9 Peripheral vascular disease, unspecified; E11.9 Type 2 diabetes mellitus without complications; L97.519 Non-pressure chronic ulcer of other part of right foot with unspecified severity; N39.0 Urinary tract infection, site not specified; L97.529 Non-pressure chronic ulcer of other part of left foot with unspecified severity; E78.00 Pure hypercholesterolemia, unspecified; J44.9 Chronic obstructive pulmonary disease, unspecified; F41.9 Anxiety disorder, unspecified; F32.9 Major depressive disorder, single episode, unspecified; F17.210 Nicotine dependence, cigarettes, uncomplicated; Z79.84 Long term (current) use of oral hypoglycemic drugs; Z79.899 Other long term (current) drug therapy
CPT/HCPCS: 36415; 71010; 80053; 81001; 82150; 82550; 82553; 83605; 83690; 83735; 83880; 84484; 85025; 85610; 85730; 86140; 87070; 87077; 87086; 87205; 90471; 90715; 93005; 94760; 96374; 96375; 96376; J1885; J2270; J2405

== ENCOUNTER 2018-02-04 14:44 | Outpatient (CLI) | payer MEDICARE ==
--- NOTE | 2018-02-04 15:18 | RAD ---
RIGHT HIP 2 VIEWS: Date: 02/04/18 HISTORY: Right hip pain. FINDINGS/IMPRESSION: Mild degenerative changes are present. No fracture, dislocation, or bony destruction is identified. A vascular stent is seen in the right proximal medial thigh. Surgical clips are also present. POS: [facility]
--- NOTE | 2018-02-04 15:19 | RAD ---
LEFT HIP 2 VIEWS: Date: 02/04/18 HISTORY: Left hip pain. FINDINGS/IMPRESSION: Mild degenerative changes are present. No fracture, dislocation, or bony destruction is seen. A vascu lar stent is present. POS: [facility]
[2018-02-04 15:28] LABS: #Eosinphils 0.1 thou/uL (0.0-0.7); #Lymphocytes 1.5 thou/uL (1.20-3.40); #Monocytes 0.4 thou/uL (0.11-0.59); #Neutrophils 4.5 thou/uL (1.40-6.50); %Basophils 0.7 % (0.0-1.0); %Eosinophils 2.3 % (0.0-10.0); %Monocytes 6.6 % (0.0-10.0); %Neutrophils 67.4 % (42.0-75.0); Mean Corpuscular HGB CONC 33.1 g/dL (32.0-36.0); Mean Corpuscular Hemoglobin 29.8 pg (27.0-31.0); Mean Platelet Volume 6.7 fL (7.4-10.4); Platelet Count 265 thou/uL (130-400); RBC Distribution Width 13.7 % (11.5-14.5); Red Blood Cell (RBC) Count 4.01 mill/uL (4.20-5.40); White Blood Cell (WBC) Count 6.6 thou/uL (4.8-10.8)
[2018-02-04 15:45] LABS: ALT (SGPT) 13 U/L (8-55); AST (SGOT) 13 U/L (5-34); Albumin 3.6 g/dL (3.5-5.0); Alkaline Phosphatase 104 U/L (40-150); Anion Gap 15 mmol/L (10-20); BUN (Urea Nitrogen) 27 mg/dL (9.8-20.1); Bilirubin, Total 0.3 mg/dL (0.2-1.2); Calc. Creatinine Clearance 0 mL/min (70-130); Calcium 9.2 mg/dL (7.8-10.44); Carbon Dioxide 26 mmol/L (22-29); Cardiac Risk 4.6 (Less than 4.5); Chloride 103 mmol/L (98-107); Cholesterol 142 mg/dl (< 200 Desired); Estimated GFR-MDRD 46; Globulin 3.3 g/dL (2.4-3.5); Glucose 144 mg/dL (70-105); HDL Cholesterol 31 mg/dL (>60 Neg Risk); LDL Cholesterol, Calculated 73 mg/dL; Potassium 4.3 mmol/L (3.5-5.1); Protein, Total 6.9 g/dL (6.0-8.3); Sodium 140 mmol/L (136-145); Triglycerides 189 mg/dL (Less than 150)
[2018-02-04 21:00] LABS: Hemoglobin A1c 7.9 % (4.0-6.0)
== END 2018-02-04 14:45 | disposition home or self-care (01) ==
LOC: MADLABBHPM 14:44 → EDSTATUS 14:46
PROVIDERS: ATTEND Family Medicine
DX: E78.5 Hyperlipidemia, unspecified (principal); M25.551 Pain in right hip; E11.9 Type 2 diabetes mellitus without complications
CPT/HCPCS: 36415; 80053; 80061; 83036; 84443; 85025

== ENCOUNTER 2018-02-18 12:13 | Outpatient (CLI) | payer MEDICARE ==
[2018-02-18 13:35] LABS: Bilirubin Negative (Negative); Blood, Urine Small (Negative); Clarity Clear (Clear); Glucose, Urine (Dipstick) Negative (Negative); Leukocyte Negative (Negative); Nitrite Negative (Negative); Protein, Urine (Dipstick) 100 mg/dL (Neg-Trace); Urobilinogen 0.2 mg/dL (0.2-1.0)
[2018-02-18 13:56] LABS: Bacteria/HPF None Seen HPF (None Seen); RBC/HPF 0-3 HPF (0-3); Squamous Epithelial 0-3 HPF (0-3); WBC/HPF 0-3 HPF (0-3)
== END 2018-02-18 12:14 | disposition home or self-care (01) ==
LOC: MADLABBHPM 12:13
PROVIDERS: ATTEND Family Medicine
DX: E11.9 Type 2 diabetes mellitus without complications (principal)
CPT/HCPCS: 81001; 87086

== ENCOUNTER 2018-04-14 11:47 | Outpatient (CLI) | payer MEDICARE ==
[2018-04-14 13:23] LABS: #Eosinphils 0.1 thou/uL (0.0-0.7); #Lymphocytes 1.3 thou/uL (1.20-3.40); #Monocytes 0.6 thou/uL (0.11-0.59); #Neutrophils 4.7 thou/uL (1.40-6.50); %Basophils 0.6 % (0.0-1.0); %Eosinophils 1.7 % (0.0-10.0); %Lymphocytes 19.8 % (21.0-51.0); %Monocytes 8.3 % (0.0-10.0); %Neutrophils 69.7 % (42.0-75.0); Hemoglobin 11.5 g/dL (12.0-16.0); Mean Corpuscular HGB CONC 32.1 g/dL (32.0-36.0); Mean Corpuscular Hemoglobin 29.2 pg (27.0-31.0); Mean Corpuscular Volume 90.8 fL (78.0-98.0); Mean Platelet Volume 7.3 fL (7.4-10.4); Platelet Count 247 thou/uL (130-400); RBC Distribution Width 13.1 % (11.5-14.5); Red Blood Cell (RBC) Count 3.93 mill/uL (4.20-5.40); White Blood Cell (WBC) Count 6.7 thou/uL (4.8-10.8)
[2018-04-14 13:33] LABS: ALT (SGPT) 13 U/L (8-55); AST (SGOT) 11 U/L (5-34); Albumin 4.2 g/dL (3.5-5.0); Alkaline Phosphatase 140 U/L (40-150); Anion Gap 15 mmol/L (10-20); BUN (Urea Nitrogen) 23 mg/dL (9.8-20.1); Bilirubin, Total 0.3 mg/dL (0.2-1.2); Calc. Creatinine Clearance 0 mL/min (70-130); Calcium 9.3 mg/dL (7.8-10.44); Carbon Dioxide 27 mmol/L (22-29); Chloride 99 mmol/L (98-107); Estimated GFR-MDRD 42; Globulin 3.1 g/dL (2.4-3.5); Glucose 340 mg/dL (70-105); Potassium 4.4 mmol/L (3.5-5.1); Protein, Total 7.3 g/dL (6.0-8.3); Sodium 137 mmol/L (136-145)
--- NOTE | 2018-04-14 14:43 | RAD ---
TWO VIEWS CHEST: DATE: 04/14/18. PROVIDED CLINICAL HISTORY: COPD. FINDINGS: Comparison is made with the study dated 01/24/17. The cardiac silhouette remains enlarged. Median st ernotomy changes and CABG changes are again seen. Atherosclerosis is again noted. Calcified left ba silar lung nodule again seen. No focal consolidation, pleural fluid, or pneumothorax apparent. Dege nerative changes are seen involving the thoracic spine. IMPRESSION: Stable radiographic appearance of the chest. POS: [facility]
== END 2018-04-14 11:48 | disposition home or self-care (01) ==
LOC: MADLAB 11:47
PROVIDERS: ATTEND Family Medicine
DX: J44.9 Chronic obstructive pulmonary disease, unspecified (principal); R30.0 Dysuria; I51.9 Heart disease, unspecified
CPT/HCPCS: 36415; 71046; 80053; 83880; 85025; 87086

== ENCOUNTER 2018-07-15 16:41 | Emergency (ER) | payer MEDICARE ==
[~2018-07-15 16:41] MED LIST: Iopamidol 370 76% 100 ML VIAL ONE; Sodium Chloride 0.9% 1,000 ML BAG ONE
[2018-07-15] MEDS ORDERED: Ondansetron HCl/PF 4 MG/2 ML Vial ONE (17:11)
[2018-07-15] MEDS ORDERED: Fentanyl 100 MCG/2 ML VIAL ONE (17:11)
[2018-07-15 17:48] LABS: ALT (SGPT) 13 U/L (8-55); AST (SGOT) 15 U/L (5-34); Albumin 3.6 g/dL (3.5-5.0); Alkaline Phosphatase 125 U/L (40-150); Anion Gap 15 mmol/L (10-20); BUN (Urea Nitrogen) 41 mg/dL (9.8-20.1); Bilirubin, Total 0.2 mg/dL (0.2-1.2); Calc. Creatinine Clearance 0 mL/min (70-130); Carbon Dioxide 30 mmol/L (22-29); Chloride 93 mmol/L (98-107); Estimated GFR-MDRD 28; Globulin 3.2 g/dL (2.4-3.5); Glucose 80 mg/dL (70-105); Potassium 3.2 mmol/L (3.5-5.1); Protein, Total 6.8 g/dL (6.0-8.3); Sodium 135 mmol/L (136-145)
--- NOTE | 2018-07-15 17:56 | RAD ---
PORTABLE CHEST: 07/15/18 HISTORY: Cough. COMPARISON: 01/24/17 exam. Heart size is borderline to slightly enlarged. Postop sternotomy changes. The lungs are clear of any infiltrates. There are no signs of failure. IMPRESSION: Borderline to minimal cardiomegaly. POS: [facility]
[2018-07-15 18:10] LABS: Hemoglobin 10.7 g/dL (12.0-16.0); Mean Corpuscular HGB CONC 33.9 g/dL (32.0-36.0); Mean Corpuscular Hemoglobin 31.6 pg (27.0-31.0); Mean Corpuscular Volume 93.1 fL (78.0-98.0); Mean Platelet Volume 7.8 fL (7.4-10.4); Platelet Count 243 thou/uL (130-400); RBC Distribution Width 10.8 % (11.5-14.5); White Blood Cell (WBC) Count 14.5 thou/uL (4.8-10.8)
[2018-07-15 18:11] LABS: Hypochromia SLIGHT = 6-15 cells (100X) (0-5/hpf); Lymphocytes 24 % (21-51); MDiff Complete? YES; Monocytes 5 % (0-10); Neutrophil 71 % (42-75); PLT Morphology Comment Appears Adequate
[2018-07-15 18:53] LABS: Bilirubin Negative (Negative); Blood, Urine Trace (Negative); Clarity Clear (Clear); Glucose, Urine (Dipstick) Negative (Negative); Leukocyte Negative (Negative); Nitrite Negative (Negative); Protein, Urine (Dipstick) Negative (Neg-Trace); Urobilinogen 0.2 mg/dL (0.2-1.0)
[2018-07-15 19:02] LABS: Amphetamine Not Detected (NotDetected); Barbiturates Screen Not Detected (NotDetected); Benzodiazepine Screen Not Detected (NotDetected); Cocaine Metabolite Screen Not Detected (NotDetected); Medtox Control Line Valid? VALID (VALID); Methadone Not Detected (NotDetected); Methamphetamine Not Detected (NotDetected); Opiate Screen Not Detected (NotDetected); Oxycodone Screen Not Detected (NotDetected); Phencyclidine (PCP) Not Detected (NotDetected); THC/Cannabinoid Screen Not Detected (NotDetected); Tricyclic Screen Not Detected (NotDetected)
[2018-07-15 19:04] LABS: Bacteria/HPF Rare-Few HPF (None Seen); RBC/HPF 0-3 HPF (0-3)
[2018-07-15 19:05] LABS: WBC/HPF 0-3 HPF (0-3); Yeast-All Forms 1+ HPF (None Seen)
--- NOTE | 2018-07-15 21:33 | CT ---
CT OF ABDOMEN AND PELVIS PERFORMED WITH INTRAVENOUS CONTRAST ENHANCEMENT: 07/15/18 HISTORY: Abdominal pain with weakness. COMPARISON: 01/13/16 study. The lung bases show some subsegmental atelectatic change. Calcified granuloma is seen in the left bas e. The liver, spleen, and pancreas regions appear unremarkable. Gallbladder also appears unremarkable. Right and left adrenal glands and right and left kidneys are normal in size. No obstruction. No signi ficant periaortic or mesenteric adenopathy. Moderate amount of stool is seen in the right and transve rse colon. CT OF PELVIS PERFORMED WITH CONTRAST ENHANCEMENT: The appendix is normal. Bilateral adnexal masses are again demonstrated. These are fairly similar in appearance to the prior examination. The left adnexal lesion is smaller. On the right side, it is si milar size. The right side is larger. It measures approximately 6.5 cm in maximum dimension. It may r epresent some type of complex cyst. Somewhat unusual for a patient of this age. Given the stability, they are probably benign. Some minimal sigmoid diverticulosis is noted. IMPRESSION: 1. Essentially stable bilateral adnexal masses. Left adnexal mass is slightly smaller. 2. Sigmoid diverticulosis. 3. Moderate amount of stool in the right and transverse colon. POS: [facility]
== END 2018-07-15 20:23 | disposition home or self-care (01) ==
LOC: MADERS 16:41
DX: R10.31 Right lower quadrant pain (principal); D64.9 Anemia, unspecified; E11.9 Type 2 diabetes mellitus without complications; E78.5 Hyperlipidemia, unspecified; J44.9 Chronic obstructive pulmonary disease, unspecified; I11.0 Hypertensive heart disease with heart failure; I50.9 Heart failure, unspecified; F32.9 Major depressive disorder, single episode, unspecified
CPT/HCPCS: 36415; 71045; 74177; 80053; 80306; 81003; 81015; 83605; 85025; 87086; 96361; 96374; 96375; J2405; J3010; J7050

== ENCOUNTER 2018-08-05 15:15 | Outpatient (CLI) | payer MEDICARE ==
[2018-08-05 15:31] LABS: Bilirubin Negative (Negative); Blood, Urine Small (Negative); Glucose, Urine (Dipstick) 100 mg/dL (Negative); Leukocyte Trace (Negative); Nitrite Negative (Negative); Protein, Urine (Dipstick) 30 mg/dL (Neg-Trace); Urobilinogen 0.2 mg/dL (0.2-1.0)
[2018-08-05 15:39] LABS: Bacteria/HPF 3+ HPF (None Seen); Clarity Slightly Cloudy (Clear); Squamous Epithelial 21-50 HPF (0-3)
== END 2018-08-05 15:16 | disposition home or self-care (01) ==
LOC: MADLABBHPM 15:15
PROVIDERS: ATTEND Family Medicine
DX: I11.0 Hypertensive heart disease with heart failure (principal); I25.10 Atherosclerotic heart disease of native coronary artery without angina pectoris
CPT/HCPCS: 81001; 87086

== ENCOUNTER 2018-09-15 14:19 | Outpatient (CLI) | payer MEDICARE ==
[2018-09-15 14:44] LABS: Bilirubin Negative (Negative); Blood, Urine Trace (Negative); Glucose, Urine (Dipstick) 250 mg/dL (Negative); Leukocyte Negative (Negative); Nitrite Negative (Negative); Protein, Urine (Dipstick) Negative (Neg-Trace); Specific Gravity, Urine 1.015 (1.005-1.030); Urobilinogen 0.2 mg/dL (0.2-1.0)
[2018-09-15 14:53] LABS: Anion Gap 17 mmol/L (10-20); BUN (Urea Nitrogen) 42 mg/dL (9.8-20.1); Calc. Creatinine Clearance 0 mL/min (70-130); Calcium 9.4 mg/dL (7.8-10.44); Carbon Dioxide 27 mmol/L (22-29); Chloride 94 mmol/L (98-107); Estimated GFR-MDRD 31; Glucose 359 mg/dL (70-105); Potassium 4.2 mmol/L (3.5-5.1); Sodium 134 mmol/L (136-145)
[2018-09-15 16:35] LABS: Clarity Hazy (Clear); WBC/HPF 0-3 HPF (0-3)
[2018-09-15 16:36] LABS: Bacteria/HPF 3+ HPF (None Seen)
== END 2018-09-15 14:20 | disposition home or self-care (01) ==
LOC: MADLABBHPM 14:19
PROVIDERS: ATTEND Family Medicine
DX: I50.9 Heart failure, unspecified (principal); E11.65 Type 2 diabetes mellitus with hyperglycemia
CPT/HCPCS: 80048; 81001; 87077; 87086; 87186

== ENCOUNTER 2018-10-27 20:28 | Emergency (ER) | payer MEDICARE ==
[2018-10-27] MEDS ORDERED: Ondansetron ODT 4 MG TAB ONE (20:53)
[2018-10-27 21:18] LABS: #Basophils 0.1 thou/uL (0.0-0.2); #Eosinphils 0.1 thou/uL (0.0-0.7); #Lymphocytes 2.1 thou/uL (1.20-3.40); #Monocytes 0.7 thou/uL (0.11-0.59); %Basophils 0.7 % (0.0-1.0); %Eosinophils 0.8 % (0.0-10.0); %Lymphocytes 21.3 % (21.0-51.0); %Monocytes 7.1 % (0.0-10.0); %Neutrophils 70.2 % (42.0-75.0); Hemoglobin 11.8 g/dL (12.0-16.0); Mean Corpuscular HGB CONC 32.5 g/dL (32.0-36.0); Mean Corpuscular Hemoglobin 30.7 pg (27.0-31.0); Mean Corpuscular Volume 94.6 fL (78.0-98.0); Mean Platelet Volume 7.6 fL (7.4-10.4); Platelet Count 249 thou/uL (130-400); RBC Distribution Width 11.7 % (11.5-14.5); Red Blood Cell (RBC) Count 3.85 mill/uL (4.20-5.40)
[2018-10-27] MEDS ORDERED: Piperacillin/Tazobactam 4.5 GM VIAL ONE (21:32)
[2018-10-27] MEDS ORDERED: Sodium Chloride 0.9% 100 ML ONE (21:33)
[2018-10-27] MEDS ORDERED: Sodium Chloride 0.9% 1,000 ML ONE (21:33)
[2018-10-27 21:34] LABS: ALT (SGPT) 12 U/L (8-55); AST (SGOT) 12 U/L (5-34); Albumin 3.9 g/dL (3.5-5.0); Alkaline Phosphatase 194 U/L (40-150); Anion Gap 18 mmol/L (10-20); BUN (Urea Nitrogen) 39 mg/dL (9.8-20.1); Bilirubin, Total 0.4 mg/dL (0.2-1.2); Calc. Creatinine Clearance 0 mL/min (70-130); Carbon Dioxide 29 mmol/L (22-29); Chloride 89 mmol/L (98-107); Estimated GFR-MDRD 23; Globulin 3.9 g/dL (2.4-3.5); Glucose 489 mg/dL (70-105); Potassium 3.9 mmol/L (3.5-5.1); Protein, Total 7.8 g/dL (6.0-8.3); Sodium 132 mmol/L (136-145)
[2018-10-27] MEDS ORDERED: Morphine 4 MG/ML VIAL ONE (21:44)
[2018-10-27] MEDS ORDERED: Insulin Regular 300 UNITS/3 ML VIAL ONE (21:54)
--- NOTE | 2018-10-27 22:45 | RAD ---
RIGHT FOOT TWO VIEWS: 10/27/18 HISTORY: Open sore with drainage, concern for osteomyelitis. FINDINGS: There is dislocation of the fifth metatarsophalangeal joint with the middle phalanx displaced mediall y. There is truncation of the lateral aspect of the fifth metatarsal head suggesting possible bone lo ss on the basis of osteomyelitis. There is overlying soft tissue swelling and focal area of subcutane ous gas suggesting a prominent skin ulceration in this region. IMPRESSION: There is a skin ulceration adjacent to the distal aspect of the fifth metatarsal laterally. There is bone loss involving the head of the fifth metatarsal suspicious for osteomyelitis and there is disloc ation of the fifth metatarsophalangeal joint. Recommend followup MRI of the foot to evaluate for underlying osteomyelitis. POS: [facility]
== END 2018-10-27 22:44 | disposition short-term general hospital (02) ==
LOC: MADERS 20:28
DX: M86.9 Osteomyelitis, unspecified (principal); N17.9 Acute kidney failure, unspecified; E11.65 Type 2 diabetes mellitus with hyperglycemia; E78.5 Hyperlipidemia, unspecified; I10 Essential (primary) hypertension; J44.9 Chronic obstructive pulmonary disease, unspecified; F32.9 Major depressive disorder, single episode, unspecified; F17.210 Nicotine dependence, cigarettes, uncomplicated; Z79.899 Other long term (current) drug therapy
CPT/HCPCS: 36416; 80053; 83605; 85025; 87040; 96361; 96374; 96375; J1815; J2270; J2543; J7050; Q0162

== ENCOUNTER 2018-11-04 11:56 | Inpatient (IN) | payer MEDICARE ==
[2018-11-04] MEDS ORDERED: Bisacodyl 5 MG TAB PO PRN (13:18)
[2018-11-04] MEDS ORDERED: Ondansetron ODT 4 MG TAB PO PRN (13:18)
[2018-11-04] MEDS ORDERED: Acetaminophen 325 MG TAB PO PRN (13:18)
[2018-11-04] MEDS ORDERED: METRONIDAZOLE 500 MG PO SCH (14:00)
[2018-11-04 14:18] VITALS: BMI 32.1
[2018-11-04] MEDS: HYDROcodone/Acetaminophen 5/325 mg Tablet PO PRN ×2 (14:30→21:24)
[2018-11-04] MEDS: metroNIDAZOLE 250 MG TAB PO SCH ×2 (14:31→21:31)
[2018-11-04] MEDS: Gabapentin 400 MG CAP PO SCH ×2 (14:31→20:55)
[2018-11-04] MEDS ORDERED: HumaLOG 300 UNITS/3 ML VIAL SC PRN (17:01)
[2018-11-04] MEDS ORDERED: Dextrose 5% in Water 1,000 ML IV PRN (17:01)
[2018-11-04] MEDS ORDERED: Dextrose 50% Abboject 50 ML SYRINGE IVP PRN (17:01)
[2018-11-04] MEDS: Carvedilol 6.25 MG TAB PO SCH (17:06)
[2018-11-04] MEDS: Vancomycin HCl 500 MG in Sodium Chloride 0.9% 100 ML IVPB SCH (20:52)
[2018-11-04] MEDS: Atorvastatin Calcium 10 MG TAB PO SCH (20:53)
[2018-11-04] MEDS: Ciprofloxacin 500 MG TAB PO SCH (20:55)
[2018-11-04] MEDS: Vancomycin HCl 750 MG in Sodium Chloride 0.9% 250 ML 250 ML IVPB SCH (20:57)
[2018-11-04] MEDS: Sacubitril 24.5 MG/Valsartan 25.5 MG TABLET PO SCH (20:57)
[2018-11-04] MEDS ORDERED: Non-Formulary Item 1 EACH (Sacubitril/Valsartan [Entresto 24 Mg-26 Mg Tablet] 1 EACH) PO SCH (21:00)
[2018-11-04] MEDS: Lantus 1000 UNITS/10 ML VIAL SC SCH (21:26)
--- NOTE | 2018-11-04 21:49 | HP ---
REASON FOR ADMISSION: Transfer from [facility] for continued IV antibiotics and PT/OT. HISTORY OF PRESENT ILLNESS: This is a 52-year-old female with past medical history significant for uncontrolled type 2 diabetes, neuropathy, severe peripheral vascular disease, cardiomyopathy, chronic kidney disease, and hypertension, who presented to the emergency room on October 28 with concern for hard callus over the lateral aspect of her right foot. The patient has had prior surgery on this foot earlier in the year and has had recurrent issues with diabetic ulcers with poor healing. There was concern for osteomyelitis and therefore the patient was admitted to the medical floor for further evaluation. Subsequent MRI of the right lower extremity on the showed no definitive evidence for osteomyelitis, but significant for soft tissue injury and edematous changes. Multiple consultants evaluated the patient including Dr. Schulz, Dr. Zuñiga, and Dr. Forde regarding the concern for osteomyelitis as well as the patient's poor circulation. Decision was made on the to proceed with right fifth digit amputation after failed conservative management. Dr. Zuñiga performed this surgery with resulting specimen confirming diagnosis of osteomyelitis as well as gangrenous ischemic ulceration with inflammatory changes extending into the resected margins. Initial culture that was collected in the emergency room from the right foot showed positive for MRSA as well as Pseudomonas aeruginosa. Subsequent culture from the right fifth toe amputation showed only positive for MRSA. While Dr. Mendes was not available in-house, he was consulted by phone from the hospital. Dr. Mendes reportedly reviewed the patient 's cultures and operative reports, and recommended continued IV antibiotics with vancomycin for 6 weeks as well as oral ciprofloxacin and Flagyl, all to be given until December 13. While the patient was in the hospital, she did have some complications with her cardiomyopathy as well as renal function. She had multiple contrast procedures and therefore was given a significant amount of IV fluids, which then caused some volume overload. Cardiology did diurese her prior to discharge. The patient has been in a wound VAC since her surgery and Dr. Zuñiga and the Wound Care Team have been following. 2 days ago, it was noted that the patient was having some poor healing at the surgical site with concern for cyanosis around the area of the wound. Dr. Jimenez then decided to take the patient to the [facility] labor on the , where the patient underwent an aortogram. He was able to successfully open up the right superior femoral artery to increase blood supply to the area of the wound. The patient was then transferred back to the floor and was seen again by Dr. Zuñiga this morning with the Wound Care Team, who reported that the foot was basically stable from 2 days ago. Reported continued dusky area around the wound, but no further extension. This morning, she did report that the sutures were removed in order to avoid putting any additional tension on the skin. Additional notation from Dr. Zuñiga shows that there were some hyperemia to the lateral forefoot, which was felt to be reactive due to the revascularization. Wound VAC was replaced, no further debridement was performed, and recommendation was for the patient to be seen back in the surgical clinic in 1 week. There was a note from the surgeon of questionable viability of this foot at this point. The patient is seen today and reports pain from the ride over. She states they were giving her Tylenol No. 3 and she is requesting stronger pain medication as her pain has not been well controlled. From the notes in the hospital, the patient did have some issues with pain medications due to hypotension and therefore they were somewhat limited. Otherwise, she states she is doing well. She has no chest pain or shortness of breath. She denies any swelling. She states she has been urinating without any issues, but has been having some constipation and has not had a bowel movement since Wednesday. Her is at her bedside. PAST MEDICAL HISTORY: 1. Uncontrolled type 2 diabetes. A1c = 12.5% 2. History of severe peripheral vascular disease. 3. COPD with continued tobacco abuse. 4. Cardiomyopathy. 5. Chronic kidney disease. 6. Anemia of chronic disease. 7. Depression and anxiety. 8. Insomnia. 9. Hyperlipidemia. 10. Coronary artery disease with history of coronary artery bypass grafting. 11. Bilateral carotid artery stenosis. PAST SURGICAL HISTORY: 1. Tonsillectomy. 2. The patient has had multiple heart catheterizations. 3. 3-vessel CABG on October 14, 2017. 4. Left leg stent in October 2017. 5. Right leg stent in November 2017. 6. Left fifth toe amputation on October 28, 2017. 7. Ulcer surgery in November 2017. 8. Right fifth toe amputation on 10/31/2018. FAMILY HISTORY: Multiple family members with history of heart disease. SOCIAL HISTORY: The patient is a smoker and has an extensive smoking history. She does drink alcohol on occasional basis. She does not use any illicit drugs. She lives at home with her . She has home health care in place. She does not have any advance directives, but states she would like to be full code with the understanding that she is not to be on any prolonged life support. MEDICATIONS: 1. Tylenol 650 mg every 4 hours as needed. 2. Lipitor 80 mg once daily. 3. Carvedilol 6.25 mg twice daily. 4. Ciprofloxacin 500 mg twice daily. 5. Clopidogrel 75 mg once daily. 6. Fluoxetine 40 mg once daily. 7. Gabapentin 400 mg 3 times daily. 8. Lantus 15 units twice daily. 9. Metolazone 5 mg every 7 days. 10. Metronidazole 500 mg every 8 hours. 11. Entresto twice daily. 12. Torsemide 40 mg once daily. 13. Vancomycin 1.25 g, last given on 11/03/2018. REVIEW OF SYSTEMS: 10-point review of systems was performed and is negative other than above. PHYSICAL EXAMINATION: VITAL SIGNS: Temperature is 98.6, blood pressure is 145/65, heart rate 71, respirations 20, O2 saturation 96% on room air. The patient's weight is listed as 178 pounds. GENERAL: She is alert and oriented x3, somewhat of a flat affect. She is in no apparent distress. She is cooperative. HEENT: Pupils are equally round and reactive to light. Sclerae are nonicteric. Conjunctivae are non-hyperemic. Oropharynx is moist. NECK: Supple without lymphadenopathy or thyromegaly. HEART: Regular rate and rhythm. LUNGS: Clear to auscultation bilaterally. No distress. ABDOMEN: Soft, nontender, nondistended with normoactive bowel sounds. EXTREMITIES: Negative for clubbing, cyanosis, or edema. Left lower extremity is well perfused. Right lower extremity has wound VAC in place with distal 4 digits with adequate capillary refill, negative for any cyanosis. PSYCHIATRIC: Somewhat of a flat affect, not anxious. NEUROLOGIC: No focal deficits. LABORATORY AND IMAGING DATA: White blood cells are 7.6, hemoglobin is 10.1, hematocrit 31.5, platelets of 310. Sodium is 139, potassium 3.9, chloride 106, bicarb 27, BUN 32, creatinine 1.21, glucose is 132. Her A1c was drawn on the and was found to be 12.5. Liver function testing was all normal. Her vancomycin trough was last checked on 11/03/2018 and was 23.9. No new imaging studies. ASSESSMENT AND PLAN: This is a 52-year-old female with multiple medical problems, who presented to [facility] with right fifth digit osteomyelitis, status post right fifth digit amputation with continued issues with wound healing, severe vascular disease, and infection. She will be admitted inpatient medical/surgical bed for continued jail and physical therapy and occupational therapy. She will be continued on her IV vancomycin and oral Cipro and Flagyl until December [address] Mendes' recommendations. We will have pharmacy assist with dosing of the vancomycin. Wound VAC has already been placed for the day from Dr. Zuñiga and we will anticipate changing this every Wednesday, Wednesday, and Wednesday with plan for followup with Dr. Zuñiga next Wednesday in our office. Per notes from General Surgery, the patient is still at high risk for requiring further amputation of this foot given her poor wound healing and vascular disease. Additionally, the patient was recommended to follow up with Dr. Jimenez, her tank bottom assembler within 1 week, which will assist in arranging. Given her longstanding history of cardiomyopathy and renal insufficiency, we will closely monitor her kidney function and electrolytes throughout the weekend given recent contrast exposure as well as diuresis for volume overload. Otherwise, the patient will be continued on her home medications. Her pain has been somewhat poorly controlled and so we will increase her pain medication to hydrocodone 5 mg/325 mg every 4 hours as needed. She is to be just heel weightbearing on the right lower extremity, but otherwise we will attempt to mobilize as much as possible. Anticipate the patient requiring hospitalization until the , when she finishes her IV antibiotics. We will also work with arranging followup with Dr. Mendes as recommended upon discharge from [facility]. Job ID: [id number] [facility]
[2018-11-05] MEDS: metroNIDAZOLE 250 MG TAB PO SCH ×3 (05:39→20:19)
[2018-11-05 06:14] LABS: #Basophils 0.1 thou/uL (0.0-0.2); #Eosinphils 0.1 thou/uL (0.0-0.7); #Lymphocytes 1.5 thou/uL (1.20-3.40); #Neutrophils 5.3 thou/uL (1.40-6.50); %Basophils 0.9 % (0.0-1.0); %Eosinophils 1.3 % (0.0-10.0); %Lymphocytes 18.5 % (21.0-51.0); %Monocytes 12.9 % (0.0-10.0); %Neutrophils 66.5 % (42.0-75.0); Hemoglobin 9.4 g/dL (12.0-16.0); Mean Corpuscular HGB CONC 31.6 g/dL (32.0-36.0); Mean Corpuscular Hemoglobin 30.5 pg (27.0-31.0); Mean Corpuscular Volume 96.7 fL (78.0-98.0); Mean Platelet Volume 7.2 fL (7.4-10.4); Platelet Count 281 thou/uL (130-400); RBC Distribution Width 12.4 % (11.5-14.5); Red Blood Cell (RBC) Count 3.07 mill/uL (4.20-5.40); White Blood Cell (WBC) Count 7.9 thou/uL (4.8-10.8)
[2018-11-05 06:32] LABS: Calcium 9.1 mg/dL (7.8-10.44); Potassium 3.6 mmol/L (3.5-5.1)
[2018-11-05] MEDS ORDERED: Non-Formulary Item 1 EACH (Atorvastatin Calcium [Atorvastatin Calcium] 80 MG) PO SCH (09:00)
[2018-11-05] MEDS: Carvedilol 6.25 MG TAB PO SCH ×2 (09:09→16:45)
[2018-11-05] MEDS: Lantus 1000 UNITS/10 ML VIAL SC SCH ×2 (09:10→20:24)
[2018-11-05] MEDS: Ciprofloxacin 500 MG TAB PO SCH ×2 (09:10→20:20)
[2018-11-05] MEDS: FLUoxetine HCl 20 MG CAP PO SCH (09:10)
[2018-11-05] MEDS: Clopidogrel Bisulfate 75 MG TAB PO SCH (09:10)
[2018-11-05] MEDS: Gabapentin 400 MG CAP PO SCH ×3 (09:10→20:20)
[2018-11-05] MEDS: Torsemide 20 MG TAB PO SCH (09:11)
[2018-11-05] MEDS: Sacubitril 24.5 MG/Valsartan 25.5 MG TABLET PO SCH ×2 (09:11→20:21)
[2018-11-05] MEDS: HYDROcodone/Acetaminophen 5/325 mg Tablet PO PRN ×2 (13:43→20:15)
[2018-11-05] MEDS: Vancomycin HCl 500 MG in Sodium Chloride 0.9% 100 ML IVPB SCH (20:07)
[2018-11-05] MEDS: traZODone HCl 50 MG TAB PO PRN (20:19)
[2018-11-05] MEDS: Atorvastatin Calcium 10 MG TAB PO SCH (20:20)
[2018-11-05] MEDS: Vancomycin HCl 750 MG in Sodium Chloride 0.9% 250 ML 250 ML IVPB SCH (20:46)
[2018-11-06] MEDS: HYDROcodone/Acetaminophen 5/325 mg Tablet PO PRN ×4 (02:45→22:37)
[2018-11-06] MEDS: metroNIDAZOLE 250 MG TAB PO SCH ×3 (06:15→21:50)
[2018-11-06] MEDS: Ciprofloxacin 500 MG TAB PO SCH ×2 (08:16→20:31)
[2018-11-06] MEDS: Gabapentin 400 MG CAP PO SCH ×3 (08:16→20:31)
[2018-11-06] MEDS: Clopidogrel Bisulfate 75 MG TAB PO SCH (08:16)
[2018-11-06] MEDS: Sacubitril 24.5 MG/Valsartan 25.5 MG TABLET PO SCH ×2 (08:16→20:32)
[2018-11-06] MEDS: FLUoxetine HCl 20 MG CAP PO SCH (08:16)
[2018-11-06] MEDS: Torsemide 20 MG TAB PO SCH (08:16)
[2018-11-06] MEDS: Lantus 1000 UNITS/10 ML VIAL SC SCH ×2 (08:17→20:35)
[2018-11-06] MEDS: Carvedilol 6.25 MG TAB PO SCH ×2 (08:17→17:31)
[2018-11-06] MEDS: Atorvastatin Calcium 10 MG TAB PO SCH (20:32)
[2018-11-06 20:58] LABS: Vancomycin, Trough 26.3 ug/mL
[2018-11-06] MEDS: Vancomycin HCl 500 MG in Sodium Chloride 0.9% 100 ML IVPB SCH (21:17)
[2018-11-06] MEDS: Vancomycin HCl 750 MG in Sodium Chloride 0.9% 250 ML 250 ML IVPB SCH (21:18)
[2018-11-06] MEDS: traZODone HCl 50 MG TAB PO PRN (21:50)
[2018-11-07] MEDS: metroNIDAZOLE 250 MG TAB PO SCH ×2 (05:35→14:33)
[2018-11-07] MEDS: HYDROcodone/Acetaminophen 5/325 mg Tablet PO PRN ×3 (05:38→14:36)
[2018-11-07 07:55] VITALS: BP 116/58; TEMP 97.4
[2018-11-07] MEDS: Sacubitril 24.5 MG/Valsartan 25.5 MG TABLET PO SCH (09:49)
[2018-11-07] MEDS: Gabapentin 400 MG CAP PO SCH ×2 (09:49→14:33)
[2018-11-07] MEDS: Torsemide 20 MG TAB PO SCH (09:49)
[2018-11-07] MEDS: Carvedilol 6.25 MG TAB PO SCH ×2 (09:49→16:35)
[2018-11-07] MEDS: Ciprofloxacin 500 MG TAB PO SCH (09:49)
[2018-11-07] MEDS: FLUoxetine HCl 20 MG CAP PO SCH (09:50)
[2018-11-07] MEDS: Clopidogrel Bisulfate 75 MG TAB PO SCH (09:50)
[2018-11-07] MEDS: Lantus 1000 UNITS/10 ML VIAL SC SCH (09:52)
[2018-11-07] MEDS ORDERED: Vancomycin HCl 750 MG in Sodium Chloride 0.9% 250 ML 250 ML IVPB SCH (20:00)
--- NOTE | 2018-11-08 11:10 | DIS ---
DATE OF ADMISSION: 11/04/2018 DATE OF DISCHARGE: 11/07/2018 PRIMARY CARE PHYSICIAN: Teressa Seaman DO DISCHARGE DIAGNOSIS: Osteomyelitis with failed treatment. SECONDARY DIAGNOSES: 1. Uncontrolled type 2 diabetes with A1c of 12.5%. 2. Renal insufficiency. 3. Severe peripheral vascular disease. 4. Cardiomyopathy. 5. Hypertension. 6. Chronic pain syndrome. 7. Diabetic neuropathy. 8. Chronic obstructive pulmonary disease. 9. Depression and anxiety. 10. Coronary artery disease with history of coronary artery bypass grafting. 11. Bilateral carotid artery stenosis. HOSPITAL COURSE: This is a 52-year-old female with multiple medical problems, who was transferred from [facility] on 11/04/2018 for planned physical therapy and occupational therapy, status post right fifth toe amputation and revascularization of right lower extremity. The patient arrived with wound VAC in place, which was changed on Wednesday. The patient was continued on IV vancomycin, and oral Cipro and Flagyl per Dr. Mendes' recommendations. The patient was due for wound VAC change today, which was done by a physical therapist. Wound was noted to be with worsening cyanosis to the area surrounding the ulcer as well as obvious necrotic changes to the base of the ulcer, and additionally, there was a medial aspect of the foot with erythema and swelling which was new for the patient. Dr. Zuñiga was immediately notified, who reviewed the images on [facility] and recommended transfer for further debridement plus possible additional amputation. The patient was notified of this plan and is in agreement with recommendation for transfer back to [facility]. Of note, the patient had an elevated vanc trough prior to admission on 11/03/2018 of 23.9. Vancomycin dose was held and adjusted per pharmacy. Repeat vanc trough level was checked yesterday and noted to be even higher at 26.3. Pharmacy has been dosing the vancomycin and dose was obviously held yesterday and today as a result. DISCHARGE MEDICATIONS: 1. Tylenol 650 mg every 4 hours as needed. 2. [place] 5/325 mg one tablet every 4 hours as needed. 3. Atorvastatin 80 mg once nightly. 4. Dulcolax 10 mg p.o. as needed for constipation. 5. Coreg 6.25 mg twice daily. 6. Ciprofloxacin 500 mg twice daily. 7. Prozac 40 mg once daily. 8. Gabapentin 400 mg 3 times daily. 9. Lantus 15 units subcutaneous twice daily. 10. Metolazone 5 mg once weekly. 11. Flagyl 500 mg every 8 hours. 12. Entresto twice daily. 13. Torsemide 40 mg once daily. 14. Trazodone 100 mg nightly as needed. 15. Vancomycin pharmacy to dose, last dose given on 11/05/2018. Of note, the patient's Plavix was held upon transfer due to planned surgery in the next [address] Zuñiga. DISPOSITION: The patient will be transferred to [facility]. DIET UPON TRANSFER: The patient is to resume heart healthy diabetic diet. ACTIVITY: The patient is to continue with only bearing weight to the heel on the right lower extremity, otherwise no restrictions. The patient should have fall risk precautions in place. CODE STATUS: The patient is full code. Job ID: [id number]
[2018-11-11] MEDS ORDERED: Metolazone 5 MG TAB PO SCH (09:00)
== END 2018-11-07 17:20 | disposition short-term general hospital (02) | DRG 638 ==
LOC: MADMS 12:59
PROVIDERS: ADMIT Family Medicine; ATTEND Family Medicine
DX: E11.69 Type 2 diabetes mellitus with other specified complication (principal); M86.8X7 Other osteomyelitis, ankle and foot; I42.9 Cardiomyopathy, unspecified; E11.22 Type 2 diabetes mellitus with diabetic chronic kidney disease; E11.51 Type 2 diabetes mellitus with diabetic peripheral angiopathy without gangrene; E11.40 Type 2 diabetes mellitus with diabetic neuropathy, unspecified; I12.9 Hypertensive chronic kidney disease with stage 1 through stage 4 chronic kidney disease, or unspecified chronic kidney disease; N18.9 Chronic kidney disease, unspecified; J44.9 Chronic obstructive pulmonary disease, unspecified; F32.9 Major depressive disorder, single episode, unspecified; F41.9 Anxiety disorder, unspecified; E78.5 Hyperlipidemia, unspecified; G47.00 Insomnia, unspecified; G89.4 Chronic pain syndrome; F17.200 Nicotine dependence, unspecified, uncomplicated; I25.10 Atherosclerotic heart disease of native coronary artery without angina pectoris; I65.23 Occlusion and stenosis of bilateral carotid arteries; E11.621 Type 2 diabetes mellitus with foot ulcer; L97.529 Non-pressure chronic ulcer of other part of left foot with unspecified severity; Z95.1 Presence of aortocoronary bypass graft; Z89.421 Acquired absence of other right toe(s); Z90.89 Acquired absence of other organs; Z79.02 Long term (current) use of antithrombotics/antiplatelets; Z79.2 Long term (current) use of antibiotics; Z79.4 Long term (current) use of insulin; Z79.899 Other long term (current) drug therapy
CPT/HCPCS: 36415; 36416; 80048; 80202; 85025; 90471; 90686; 90732; G0008; G0009; J1815; J3370; J7050

== ENCOUNTER 2018-11-16 18:17 | Inpatient (IN) | payer MEDICARE ==
[2018-11-16] MEDS: HYDROcodone/Acetaminophen 10/325 mg Tablet PO PRN (21:09)
[2018-11-16] MEDS ORDERED: Acetaminophen 325 MG TAB PO PRN (21:49)
[2018-11-16] MEDS ORDERED: MEROPENEM IVPB SCH (22:00)
[2018-11-16] MEDS ORDERED: Sacubitril 24.5 MG/Valsartan 25.5 MG TABLET PO SCH (22:30)
[2018-11-16] MEDS ORDERED: Lantus 1000 UNITS/10 ML VIAL SC SCH (22:30)
[2018-11-16] MEDS ORDERED: Meropenem 1 GM in Sodium Chloride 0.9% 100 ML IVPB SCH (22:30)
[2018-11-16] MEDS ORDERED: Gabapentin 400 MG CAP PO SCH (22:30)
[2018-11-16] MEDS: Bisacodyl 5 MG TAB PO PRN (22:52)
[2018-11-16] MEDS: traZODone HCl 50 MG TAB PO PRN (22:53)
[2018-11-17] MEDS ORDERED: Dextrose 50% Abboject 50 ML SYRINGE IVP PRN (00:12)
[2018-11-17] MEDS ORDERED: Dextrose 5% in Water 1,000 ML IV PRN (00:12)
[2018-11-17] MEDS: Meropenem 1 GM in Sodium Chloride 0.9% 100 ML IVPB SCH ×3 (05:38→21:32)
[2018-11-17] MEDS: FLUoxetine HCl 20 MG CAP PO SCH (08:14)
[2018-11-17] MEDS: Torsemide 20 MG TAB PO SCH (08:14)
[2018-11-17] MEDS: Gabapentin 400 MG CAP PO SCH ×3 (08:14→21:28)
[2018-11-17] MEDS: Atorvastatin Calcium 10 MG TAB PO SCH (08:15)
[2018-11-17] MEDS: Sacubitril 24.5 MG/Valsartan 25.5 MG TABLET PO SCH ×2 (08:15→21:27)
[2018-11-17] MEDS: Saccharomyces boulardii 250 MG CAP PO SCH (08:15)
[2018-11-17] MEDS: Clopidogrel Bisulfate 75 MG TAB PO SCH (08:15)
[2018-11-17] MEDS: Lantus 1000 UNITS/10 ML VIAL SC SCH ×2 (08:16→21:28)
[2018-11-17] MEDS: HYDROcodone/Acetaminophen 10/325 mg Tablet PO PRN ×2 (11:18→19:40)
[2018-11-17] MEDS ORDERED: Vancomycin HCl 750 MG VIAL IVPB SCH (12:00)
[2018-11-17] MEDS: HumaLOG 300 UNITS/3 ML VIAL SC PRN (12:02)
[2018-11-17] MEDS: Vancomycin HCl 750 MG in Sodium Chloride 0.9% 250 ML 250 ML IVPB SCH (12:03)
[2018-11-17] MEDS: traZODone HCl 50 MG TAB PO PRN (21:26)
[2018-11-18] MEDS: Meropenem 1 GM in Sodium Chloride 0.9% 100 ML IVPB SCH ×3 (05:15→21:04)
[2018-11-18] MEDS: FLUoxetine HCl 20 MG CAP PO SCH (08:36)
[2018-11-18] MEDS: Atorvastatin Calcium 10 MG TAB PO SCH (08:36)
[2018-11-18] MEDS: Clopidogrel Bisulfate 75 MG TAB PO SCH (08:36)
[2018-11-18] MEDS: Sacubitril 24.5 MG/Valsartan 25.5 MG TABLET PO SCH ×2 (08:36→20:21)
[2018-11-18] MEDS: Torsemide 20 MG TAB PO SCH (08:36)
[2018-11-18] MEDS: Lantus 1000 UNITS/10 ML VIAL SC SCH ×2 (08:37→21:02)
[2018-11-18] MEDS: Gabapentin 400 MG CAP PO SCH ×3 (08:37→20:20)
[2018-11-18] MEDS: Saccharomyces boulardii 250 MG CAP PO SCH (08:37)
[2018-11-18] MEDS: HYDROcodone/Acetaminophen 10/325 mg Tablet PO PRN ×2 (10:55→20:23)
[2018-11-18] MEDS ORDERED: VANCOMYCIN IVPB PRN (10:56)
[2018-11-18 11:37] LABS: Vancomycin, Trough 21.1 ug/mL
[2018-11-18] MEDS: HumaLOG 300 UNITS/3 ML VIAL SC PRN ×2 (12:27→21:03)
[2018-11-18] MEDS: Vancomycin HCl 750 MG in Sodium Chloride 0.9% 250 ML 250 ML IVPB SCH (12:27)
--- NOTE | 2018-11-18 12:58 | HP ---
PRIMARY CARE PHYSICIAN: Teressa Seaman DO REASON FOR ADMISSION: Osteomyelitis s/p amputation and debridement, needs wound care and PT/OT HISTORY OF PRESENT ILLNESS: This is a 52-year-old female with a past medical history significant for severe peripheral vascular disease, poorly controlled diabetes, severe cardiomyopathy, chronic kidney disease, and hypertension, who is seen today for admission for planned IV antibiotics and continued wound care, status post prolonged hospitalization at [facility]. The patient was initially admitted on October 27, 2018, to [facility] for callus on the right foot. MRI was equivocal. Wound did not improve with conservative management so the patient was taken for right fifth digit amputation on October 31, 2018. Dr. Zuñiga did the surgery and pathology report did confirm diagnosis of osteomyelitis with positive cultures. The patient was placed on a wound VAC and started on IV vancomycin and cefepime per orders of Dr. Mendes. Wound was not healing well and circulation was poor, so patient underwent catheterization by Dr. Jimenez, who was able to open up the right superior femoral artery to increase the blood supply to the area of the wound. Patient was subsequently transferred to [facility] on 11/04/2018, at which point, I admitted her for continued wound care and IV antibiotics. The patient was kept over the weekend and by Wednesday, her wound VAC was removed and area of the wound was found to be extremely necrotic with poor blood supply. Dr. Zuñiga was immediately notified with recommendation to transfer the patient back to [facility]. The patient was then admitted to [facility] on November 07 for continued wound care and possible debridement/amputation. In review of the records, it appears patient was taken back to OR on 11/08/18 for debridement, but no operative note is dictated. The patient was seen by multiple consultants, including Dr. Mendes, and the hospitalist team was consulted for medical management. Per Dr. Zuñiga's last progress note on November 16, she reports the wound to be clean and granulating, but no further debridement necessary. She did have some pealing skin trimmed back, but feels the wound to now be viable and recommends wound VAC and continued wound care with IV antibiotics until healed with hopes of limb salvage. Dr. Mendes saw the patient and recommended IV vancomycin and Meropenem this time with orders for CBC, CRP, and CMP as well as vancomycin trough monitoring to be done on a weekly basis and faxed to Dr. Mendes. The patient today reports her pain is somewhat well controlled with hydrocodone. She reports she has been getting out of bed very minimally only to use the bedside commode and has not been doing much ambulating. She denies any chest pain or shortness of breath. She denies any fevers. PAST MEDICAL HISTORY: 1. Uncontrolled type 2 diabetes mellitus. 2. Chronic kidney disease with baseline creatinine of approximately 1.3 to 1.4. 3. History of severe peripheral vascular disease. 4. COPD with continued tobacco abuse, although she has quit since been admitted to the hospital. 5. Cardiomyopathy. 6. Anemia of chronic disease. 7. Depression and anxiety. 8. Insomnia. 9. Hyperlipidemia. 10. Coronary artery disease with history of coronary artery bypass grafting. 11. Bilateral carotid artery stenosis. PAST SURGICAL HISTORY: 1. Tonsillectomy. 2. The patient has had multiple heart catheterizations. 3. 3-vessel CABG on October 14, 2017. 4. Left leg stent in October 2017. 5. Right leg stent in November 2017. 6. Left fifth toe amputation on October 28, 2017. 7. Ulcer surgery in November 2017. 8. Right fifth toe amputation on 10/31/2018. 9. Right foot wound debridement on November 07, 2018. SOCIAL HISTORY: The patient is a recently quit smoker with longstanding history of tobacco abuse. She does drink alcohol on an occasional basis. She does not use any illicit drugs. She lives at home with her . She has home health care in place. She does not have any advanced directives and states that she would like to be full code with the understanding that she is not to be on any prolonged life support. CURRENT MEDICATIONS: 1. Tylenol 650 mg every 4 hours as needed. 2. Lipitor 80 mg once a day. 3. Hydrocodone 10/325 mg every 4 hours as needed. 4. DuoNeb 3 mL 4 times a day as needed. 5. Dulcolax 10 mg once daily as needed. 6. Plavix 75 mg once daily. 7. Fluoxetine 40 mg once daily. 8. Gabapentin 400 mg 2 times a day. 9. Lantus 15 units twice daily. 10. Vancomycin, pharmacy to dose. 11. Meropenem 1 g every 8 hours. 12. Metolazone 5 mg once weekly. 13. Florastor 250 mg daily. 14. Entresto 24.5-25.5 mg twice daily. 15. Torsemide 40 mg once daily. 16. Trazodone 100 mg once nightly. Of note, it appears the patient is no longer on her carvedilol dose, which appears to be due to low blood pressure during most recent hospitalization. REVIEW OF SYSTEMS: A 10-point review of systems was reviewed and negative other than as mentioned above. LABS AND IMAGING: No new labs. ASSESSMENT AND PLAN: This is a 52-year-old female with multiple chronic medical problems who has had a prolonged complicated course with osteomyelitis of her right foot. As mentioned, the patient underwent an initial amputation and subsequent wound VAC and wound care that failed initial treatment requiring further intraoperative debridement as well as stronger antibiotic with the vancomycin and meropenem. Per multiple specialists notes, she appears to be responding better at this point and the hope is for right lower extremity salvage and to avoid amputation at all cost. The patient will be admitted to the [facility] for planned IV vancomycin and meropenem to be given until December 21, 2018. Weekly labs will be faxed to Dr. Mendes as requested. Pharmacy will assist with dosing Vanc dosing. Additionally, the patient will have a 1-week followup schedule with Dr. Zuñiga in the wound care clinic for further debridement if necessary. The patient will need to be monitored very closely given her multiple comorbidities as well as high risk for failed treatment given the severity of the wound. She will have her wound VAC changed three times/week with the PT team and will be continued on all of her current medications. Of note, if her blood pressure starts to elevate, we can restart her carvedilol, which she should be on chronically due to her history of ischemic cardiomyopathy. I anticipate the patient needing the full duration of her stay until December 21. Code status is full code. Job ID: [id number] [facility]
[2018-11-19] MEDS: Meropenem 1 GM in Sodium Chloride 0.9% 100 ML IVPB SCH ×3 (05:05→21:13)
[2018-11-19] MEDS: Torsemide 20 MG TAB PO SCH (08:23)
[2018-11-19] MEDS: Saccharomyces boulardii 250 MG CAP PO SCH (08:23)
[2018-11-19] MEDS: Sacubitril 24.5 MG/Valsartan 25.5 MG TABLET PO SCH ×2 (08:23→20:44)
[2018-11-19] MEDS: Atorvastatin Calcium 10 MG TAB PO SCH (08:23)
[2018-11-19] MEDS: Clopidogrel Bisulfate 75 MG TAB PO SCH (08:23)
[2018-11-19] MEDS: FLUoxetine HCl 20 MG CAP PO SCH (08:23)
[2018-11-19] MEDS: Gabapentin 400 MG CAP PO SCH ×3 (08:24→20:44)
[2018-11-19] MEDS: HYDROcodone/Acetaminophen 10/325 mg Tablet PO PRN ×3 (08:26→19:50)
[2018-11-19] MEDS: Lantus 1000 UNITS/10 ML VIAL SC SCH ×2 (08:28→20:46)
[2018-11-19 11:21] LABS: Vancomycin, Trough 20.6 ug/mL
[2018-11-19] MEDS: Vancomycin HCl 750 MG in Sodium Chloride 0.9% 250 ML 250 ML IVPB SCH (12:02)
[2018-11-19] MEDS: HumaLOG 300 UNITS/3 ML VIAL SC PRN ×2 (12:03→17:01)
[2018-11-20] MEDS: Meropenem 1 GM in Sodium Chloride 0.9% 100 ML IVPB SCH ×3 (05:16→21:07)
[2018-11-20] MEDS: HYDROcodone/Acetaminophen 10/325 mg Tablet PO PRN ×2 (05:23→14:19)
[2018-11-20] MEDS: Torsemide 20 MG TAB PO SCH (08:06)
[2018-11-20] MEDS: Gabapentin 400 MG CAP PO SCH ×3 (08:06→20:48)
[2018-11-20] MEDS: Saccharomyces boulardii 250 MG CAP PO SCH (08:06)
[2018-11-20] MEDS: Sacubitril 24.5 MG/Valsartan 25.5 MG TABLET PO SCH ×2 (08:07→20:49)
[2018-11-20] MEDS: Clopidogrel Bisulfate 75 MG TAB PO SCH (08:07)
[2018-11-20] MEDS: FLUoxetine HCl 20 MG CAP PO SCH (08:07)
[2018-11-20] MEDS: Atorvastatin Calcium 10 MG TAB PO SCH (08:07)
[2018-11-20] MEDS: Lantus 1000 UNITS/10 ML VIAL SC SCH ×2 (08:08→20:49)
[2018-11-20] MEDS: Vancomycin HCl 750 MG in Sodium Chloride 0.9% 250 ML 250 ML IVPB SCH (12:05)
[2018-11-20] MEDS: HumaLOG 300 UNITS/3 ML VIAL SC PRN ×3 (12:07→20:49)
[2018-11-21] MEDS: HYDROcodone/Acetaminophen 10/325 mg Tablet PO PRN ×4 (00:02→21:09)
[2018-11-21] MEDS: traZODone HCl 50 MG TAB PO PRN ×2 (00:04→21:13)
[2018-11-21] MEDS: Meropenem 1 GM in Sodium Chloride 0.9% 100 ML IVPB SCH ×3 (05:15→21:14)
[2018-11-21] MEDS: Atorvastatin Calcium 10 MG TAB PO SCH (09:29)
[2018-11-21] MEDS: Sacubitril 24.5 MG/Valsartan 25.5 MG TABLET PO SCH ×2 (09:30→21:09)
[2018-11-21] MEDS: FLUoxetine HCl 20 MG CAP PO SCH (09:30)
[2018-11-21] MEDS: Saccharomyces boulardii 250 MG CAP PO SCH (09:30)
[2018-11-21] MEDS: Torsemide 20 MG TAB PO SCH (09:30)
[2018-11-21] MEDS: Gabapentin 400 MG CAP PO SCH ×3 (09:30→21:09)
[2018-11-21] MEDS: Lantus 1000 UNITS/10 ML VIAL SC SCH ×2 (09:31→21:04)
[2018-11-21] MEDS: Clopidogrel Bisulfate 75 MG TAB PO SCH (09:32)
[2018-11-21] MEDS: Vancomycin HCl 750 MG in Sodium Chloride 0.9% 250 ML 250 ML IVPB SCH (11:56)
[2018-11-21] MEDS: HumaLOG 300 UNITS/3 ML VIAL SC PRN (14:07)
[2018-11-21] MEDS ORDERED: Fluconazole 100 MG TAB PO SCH (15:45)
[2018-11-21] MEDS ORDERED: Clotrimazole 1% Cream 15 GM TUBE TOP PRN (18:00)
[2018-11-21] MEDS: Clotrimazole 1% Cream 15 GM TUBE TOP SCH (21:09)
[2018-11-22] MEDS: HYDROcodone/Acetaminophen 10/325 mg Tablet PO PRN ×4 (02:31→22:00)
[2018-11-22] MEDS: Meropenem 1 GM in Sodium Chloride 0.9% 100 ML IVPB SCH ×3 (05:50→21:41)
[2018-11-22] MEDS: Sacubitril 24.5 MG/Valsartan 25.5 MG TABLET PO SCH ×2 (08:16→21:24)
[2018-11-22] MEDS: Gabapentin 400 MG CAP PO SCH ×3 (08:16→21:24)
[2018-11-22] MEDS: FLUoxetine HCl 20 MG CAP PO SCH (08:16)
[2018-11-22] MEDS: Clopidogrel Bisulfate 75 MG TAB PO SCH (08:17)
[2018-11-22] MEDS: Saccharomyces boulardii 250 MG CAP PO SCH (08:17)
[2018-11-22] MEDS: Lantus 1000 UNITS/10 ML VIAL SC SCH ×2 (08:17→21:24)
[2018-11-22] MEDS: Torsemide 20 MG TAB PO SCH (08:17)
[2018-11-22] MEDS: Fluconazole 100 MG TAB PO SCH (08:17)
[2018-11-22] MEDS: Atorvastatin Calcium 10 MG TAB PO SCH (08:21)
[2018-11-22] MEDS: Clotrimazole 1% Cream 15 GM TUBE TOP SCH ×2 (08:24→21:23)
[2018-11-22] MEDS: Vancomycin HCl 750 MG in Sodium Chloride 0.9% 250 ML 250 ML IVPB SCH (11:57)
[2018-11-22] MEDS: HumaLOG 300 UNITS/3 ML VIAL SC PRN (17:15)
[2018-11-22] MEDS: traZODone HCl 50 MG TAB PO PRN (21:30)
[2018-11-23] MEDS: HYDROcodone/Acetaminophen 10/325 mg Tablet PO PRN ×3 (04:22→14:50)
[2018-11-23 04:58] LABS: #Basophils 0.1 thou/uL (0.0-0.2); #Eosinphils 0.2 thou/uL (0.0-0.7); #Lymphocytes 1.7 thou/uL (1.20-3.40); #Monocytes 0.9 thou/uL (0.11-0.59); #Neutrophils 3.9 thou/uL (1.40-6.50); %Basophils 0.8 % (0.0-1.0); %Lymphocytes 24.9 % (21.0-51.0); %Monocytes 13.3 % (0.0-10.0); Hemoglobin 9.8 g/dL (12.0-16.0); Mean Corpuscular Hemoglobin 31.3 pg (27.0-31.0); Mean Corpuscular Volume 94.8 fL (78.0-98.0); Mean Platelet Volume 7.3 fL (7.4-10.4); Platelet Count 296 thou/uL (130-400); RBC Distribution Width 12.3 % (11.5-14.5); Red Blood Cell (RBC) Count 3.14 mill/uL (4.20-5.40); White Blood Cell (WBC) Count 6.7 thou/uL (4.8-10.8)
[2018-11-23 05:17] LABS: ALT (SGPT) 27 U/L (8-55); AST (SGOT) 22 U/L (5-34); Albumin 3.4 g/dL (3.5-5.0); Alkaline Phosphatase 167 U/L (40-150); Anion Gap 14 mmol/L (10-20); BUN (Urea Nitrogen) 78 mg/dL (9.8-20.1); Bilirubin, Total 0.2 mg/dL (0.2-1.2); Calc. Creatinine Clearance 58 mL/min (70-130); Calcium 9.4 mg/dL (7.8-10.44); Carbon Dioxide 32 mmol/L (22-29); Chloride 99 mmol/L (98-107); Estimated GFR-MDRD 36; Globulin 3.6 g/dL (2.4-3.5); Glucose 125 mg/dL (70-105); Potassium 4.4 mmol/L (3.5-5.1); Sodium 141 mmol/L (136-145)
[2018-11-23] MEDS: Meropenem 1 GM in Sodium Chloride 0.9% 100 ML IVPB SCH ×3 (05:18→21:32)
[2018-11-23] MEDS: Lantus 1000 UNITS/10 ML VIAL SC SCH ×2 (08:35→20:50)
[2018-11-23] MEDS: Clopidogrel Bisulfate 75 MG TAB PO SCH (08:36)
[2018-11-23] MEDS: FLUoxetine HCl 20 MG CAP PO SCH (08:36)
[2018-11-23] MEDS: Saccharomyces boulardii 250 MG CAP PO SCH (08:36)
[2018-11-23] MEDS: Atorvastatin Calcium 10 MG TAB PO SCH (08:36)
[2018-11-23] MEDS: Sacubitril 24.5 MG/Valsartan 25.5 MG TABLET PO SCH ×2 (08:36→20:49)
[2018-11-23] MEDS: Torsemide 20 MG TAB PO SCH (08:36)
[2018-11-23] MEDS: Fluconazole 100 MG TAB PO SCH (08:37)
[2018-11-23] MEDS: Gabapentin 400 MG CAP PO SCH ×3 (08:37→20:49)
[2018-11-23] MEDS: Clotrimazole 1% Cream 15 GM TUBE TOP SCH ×2 (08:37→20:48)
[2018-11-23 11:19] LABS: Vancomycin, Trough 21.6 ug/mL
[2018-11-23] MEDS: Vancomycin HCl 750 MG in Sodium Chloride 0.9% 250 ML 250 ML IVPB SCH (11:50)
[2018-11-23] MEDS: HumaLOG 300 UNITS/3 ML VIAL SC PRN (17:08)
[2018-11-24] MEDS: Meropenem 1 GM in Sodium Chloride 0.9% 100 ML IVPB SCH ×3 (05:19→21:04)
[2018-11-24] MEDS: HYDROcodone/Acetaminophen 10/325 mg Tablet PO PRN ×3 (06:18→15:50)
[2018-11-24] MEDS: Clopidogrel Bisulfate 75 MG TAB PO SCH (08:15)
[2018-11-24] MEDS: Saccharomyces boulardii 250 MG CAP PO SCH (08:15)
[2018-11-24] MEDS: Torsemide 20 MG TAB PO SCH (08:15)
[2018-11-24] MEDS: Atorvastatin Calcium 10 MG TAB PO SCH (08:15)
[2018-11-24] MEDS: Gabapentin 400 MG CAP PO SCH ×3 (08:16→21:03)
[2018-11-24] MEDS: HumaLOG 300 UNITS/3 ML VIAL SC PRN ×2 (08:16→16:51)
[2018-11-24] MEDS: Sacubitril 24.5 MG/Valsartan 25.5 MG TABLET PO SCH ×2 (08:16→21:03)
[2018-11-24] MEDS: Clotrimazole 1% Cream 15 GM TUBE TOP SCH ×2 (08:16→21:02)
[2018-11-24] MEDS: FLUoxetine HCl 20 MG CAP PO SCH (08:16)
[2018-11-24] MEDS: Lantus 1000 UNITS/10 ML VIAL SC SCH ×2 (08:17→21:05)
[2018-11-24] MEDS: Vancomycin HCl 750 MG in Sodium Chloride 0.9% 250 ML 250 ML IVPB SCH (11:56)
[2018-11-25] MEDS: HYDROcodone/Acetaminophen 10/325 mg Tablet PO PRN ×4 (02:17→20:23)
[2018-11-25] MEDS: Meropenem 1 GM in Sodium Chloride 0.9% 100 ML IVPB SCH ×3 (05:11→21:06)
[2018-11-25] MEDS: Atorvastatin Calcium 10 MG TAB PO SCH (08:36)
[2018-11-25] MEDS: Saccharomyces boulardii 250 MG CAP PO SCH (08:37)
[2018-11-25] MEDS: FLUoxetine HCl 20 MG CAP PO SCH (08:37)
[2018-11-25] MEDS: Sacubitril 24.5 MG/Valsartan 25.5 MG TABLET PO SCH ×2 (08:37→20:23)
[2018-11-25] MEDS: Torsemide 20 MG TAB PO SCH (08:37)
[2018-11-25] MEDS: Clopidogrel Bisulfate 75 MG TAB PO SCH (08:37)
[2018-11-25] MEDS: Gabapentin 400 MG CAP PO SCH ×3 (08:38→20:23)
[2018-11-25] MEDS: Lantus 1000 UNITS/10 ML VIAL SC SCH ×2 (08:38→20:23)
[2018-11-25] MEDS: Clotrimazole 1% Cream 15 GM TUBE TOP SCH ×2 (08:38→20:23)
[2018-11-25] MEDS: Vancomycin HCl 750 MG in Sodium Chloride 0.9% 250 ML 250 ML IVPB SCH ×2 (12:42→14:04)
[2018-11-25] MEDS ORDERED: Vancomycin HCl 750 MG in Sodium Chloride 0.9% 250 ML 250 ML IVPB SCH (14:00)
[2018-11-25] MEDS: HumaLOG 300 UNITS/3 ML VIAL SC PRN (16:47)
[2018-11-25] MEDS: traZODone HCl 50 MG TAB PO PRN (20:24)
[2018-11-26] MEDS: HYDROcodone/Acetaminophen 10/325 mg Tablet PO PRN ×2 (03:01→13:29)
[2018-11-26] MEDS: Meropenem 1 GM in Sodium Chloride 0.9% 100 ML IVPB SCH ×3 (05:39→21:54)
[2018-11-26] MEDS: Atorvastatin Calcium 10 MG TAB PO SCH (08:46)
[2018-11-26] MEDS: FLUoxetine HCl 20 MG CAP PO SCH (08:46)
[2018-11-26] MEDS: Lantus 1000 UNITS/10 ML VIAL SC SCH ×2 (08:47→20:15)
[2018-11-26] MEDS: Clopidogrel Bisulfate 75 MG TAB PO SCH (08:47)
[2018-11-26] MEDS: Saccharomyces boulardii 250 MG CAP PO SCH (08:47)
[2018-11-26] MEDS: Torsemide 20 MG TAB PO SCH (08:47)
[2018-11-26] MEDS: Sacubitril 24.5 MG/Valsartan 25.5 MG TABLET PO SCH ×2 (08:47→20:08)
[2018-11-26] MEDS: Gabapentin 400 MG CAP PO SCH ×3 (08:47→20:08)
[2018-11-26] MEDS: Clotrimazole 1% Cream 15 GM TUBE TOP SCH ×2 (08:49→20:08)
[2018-11-26] MEDS: Vancomycin HCl 750 MG in Sodium Chloride 0.9% 250 ML 250 ML IVPB SCH (11:32)
[2018-11-26] MEDS: HumaLOG 300 UNITS/3 ML VIAL SC PRN ×2 (12:08→18:17)
[2018-11-26 19:00] LABS: Bilirubin Negative (Negative); Blood, Urine Trace (Negative); Glucose, Urine (Dipstick) Negative (Negative); Leukocyte Negative (Negative); Nitrite Negative (Negative); Protein, Urine (Dipstick) Trace mg/dL (Neg-Trace); Urobilinogen 0.2 mg/dL (0.2-1.0)
[2018-11-26 19:07] LABS: Clarity Hazy (Clear)
[2018-11-26 19:08] LABS: Bacteria/HPF Rare-Few HPF (None Seen); RBC/HPF 0-3 HPF (0-3); Squamous Epithelial 0-3 HPF (0-3); WBC/HPF None Seen HPF (0-3)
[2018-11-27] MEDS: Clotrimazole 1% Cream 15 GM TUBE TOP SCH ×2 (09:00→21:23)
[2018-11-27] MEDS: Gabapentin 400 MG CAP PO SCH ×3 (09:00→21:21)
[2018-11-27] MEDS: FLUoxetine HCl 20 MG CAP PO SCH (09:00)
[2018-11-27] MEDS: Saccharomyces boulardii 250 MG CAP PO SCH (09:00)
[2018-11-27] MEDS: Atorvastatin Calcium 10 MG TAB PO SCH (09:00)
[2018-11-27] MEDS: Clopidogrel Bisulfate 75 MG TAB PO SCH (09:00)
[2018-11-27] MEDS: Torsemide 20 MG TAB PO SCH (09:03)
[2018-11-27] MEDS: Sacubitril 24.5 MG/Valsartan 25.5 MG TABLET PO SCH ×2 (09:03→21:21)
[2018-11-27] MEDS: Lantus 1000 UNITS/10 ML VIAL SC SCH ×2 (09:03→21:19)
[2018-11-27] MEDS ORDERED: Meropenem 1 GM in Sodium Chloride 0.9% 100 ML IVPB SCH (10:00)
[2018-11-27] MEDS: Vancomycin HCl 750 MG in Sodium Chloride 0.9% 250 ML 250 ML IVPB SCH (12:06)
[2018-11-27] MEDS: Meropenem 1 GM in Sodium Chloride 0.9% 100 ML IVPB SCH ×2 (13:58→21:20)
[2018-11-27] MEDS: HYDROcodone/Acetaminophen 10/325 mg Tablet PO PRN ×2 (16:25→21:29)
[2018-11-27] MEDS: HumaLOG 300 UNITS/3 ML VIAL SC PRN (21:20)
[2018-11-27] MEDS: traZODone HCl 50 MG TAB PO PRN (21:21)
[2018-11-28] MEDS: Meropenem 1 GM in Sodium Chloride 0.9% 100 ML IVPB SCH ×3 (04:59→21:02)
[2018-11-28] MEDS: HYDROcodone/Acetaminophen 10/325 mg Tablet PO PRN ×4 (07:30→22:43)
[2018-11-28] MEDS: Sacubitril 24.5 MG/Valsartan 25.5 MG TABLET PO SCH ×2 (07:31→21:00)
[2018-11-28] MEDS: FLUoxetine HCl 20 MG CAP PO SCH (07:32)
[2018-11-28] MEDS: Gabapentin 400 MG CAP PO SCH ×3 (07:32→21:00)
[2018-11-28] MEDS: Torsemide 20 MG TAB PO SCH (07:32)
[2018-11-28] MEDS: Saccharomyces boulardii 250 MG CAP PO SCH (07:32)
[2018-11-28] MEDS: Atorvastatin Calcium 10 MG TAB PO SCH (07:32)
[2018-11-28] MEDS: Clopidogrel Bisulfate 75 MG TAB PO SCH (07:33)
[2018-11-28] MEDS: Clotrimazole 1% Cream 15 GM TUBE TOP SCH ×2 (07:34→21:01)
[2018-11-28] MEDS: Lantus 1000 UNITS/10 ML VIAL SC SCH ×2 (07:35→21:01)
[2018-11-28] MEDS: Vancomycin HCl 750 MG in Sodium Chloride 0.9% 250 ML 250 ML IVPB SCH (12:58)
[2018-11-28] MEDS: HumaLOG 300 UNITS/3 ML VIAL SC PRN ×2 (13:06→18:11)
[2018-11-28] MEDS: traZODone HCl 50 MG TAB PO PRN (21:07)
[2018-11-29] MEDS: Meropenem 1 GM in Sodium Chloride 0.9% 100 ML IVPB SCH ×3 (05:43→21:16)
[2018-11-29] MEDS: HYDROcodone/Acetaminophen 10/325 mg Tablet PO PRN ×3 (07:57→19:15)
[2018-11-29] MEDS: FLUoxetine HCl 20 MG CAP PO SCH (07:58)
[2018-11-29] MEDS: Torsemide 20 MG TAB PO SCH (07:58)
[2018-11-29] MEDS: Sacubitril 24.5 MG/Valsartan 25.5 MG TABLET PO SCH ×2 (07:59→20:32)
[2018-11-29] MEDS: Saccharomyces boulardii 250 MG CAP PO SCH (07:59)
[2018-11-29] MEDS: Gabapentin 400 MG CAP PO SCH ×3 (07:59→20:32)
[2018-11-29] MEDS: Metolazone 5 MG TAB PO SCH (07:59)
[2018-11-29] MEDS: Atorvastatin Calcium 10 MG TAB PO SCH (07:59)
[2018-11-29] MEDS: Clopidogrel Bisulfate 75 MG TAB PO SCH (08:00)
[2018-11-29] MEDS: Clotrimazole 1% Cream 15 GM TUBE TOP SCH ×2 (08:00→20:33)
[2018-11-29] MEDS: Lantus 1000 UNITS/10 ML VIAL SC SCH ×2 (08:00→20:33)
[2018-11-29] MEDS: Vancomycin HCl 750 MG in Sodium Chloride 0.9% 250 ML 250 ML IVPB SCH (12:38)
[2018-11-29] MEDS: HumaLOG 300 UNITS/3 ML VIAL SC PRN (20:56)
[2018-11-30] MEDS: HYDROcodone/Acetaminophen 10/325 mg Tablet PO PRN ×4 (02:43→19:51)
[2018-11-30] MEDS: Triple Antibiotic Oint 1 GM Packet TOP SCH ×3 (03:07→20:37)
[2018-11-30] MEDS ORDERED: Triple Antibiotic Oint 1 GM Packet TOP SCH (03:15)
[2018-11-30 05:22] LABS: #Basophils 0.1 thou/uL (0.0-0.2); #Eosinphils 0.2 thou/uL (0.0-0.7); #Lymphocytes 1.7 thou/uL (1.20-3.40); #Monocytes 0.7 thou/uL (0.11-0.59); #Neutrophils 3.2 thou/uL (1.40-6.50); %Eosinophils 3.8 % (0.0-10.0); %Lymphocytes 28.7 % (21.0-51.0); %Monocytes 12.5 % (0.0-10.0); Hemoglobin 8.8 g/dL (12.0-16.0); Mean Corpuscular HGB CONC 33.4 g/dL (32.0-36.0); Mean Corpuscular Hemoglobin 30.9 pg (27.0-31.0); Mean Corpuscular Volume 92.4 fL (78.0-98.0); Mean Platelet Volume 6.5 fL (7.4-10.4); Platelet Count 259 thou/uL (130-400); RBC Distribution Width 11.7 % (11.5-14.5); Red Blood Cell (RBC) Count 2.86 mill/uL (4.20-5.40); White Blood Cell (WBC) Count 5.9 thou/uL (4.8-10.8)
[2018-11-30 05:43] LABS: ALT (SGPT) 30 U/L (8-55); AST (SGOT) 21 U/L (5-34); Albumin 3.4 g/dL (3.5-5.0); Alkaline Phosphatase 161 U/L (40-150); Anion Gap 15 mmol/L (10-20); BUN (Urea Nitrogen) 69 mg/dL (9.8-20.1); Bilirubin, Total 0.2 mg/dL (0.2-1.2); Calc. Creatinine Clearance 69 mL/min (70-130); Calcium 9.2 mg/dL (7.8-10.44); Carbon Dioxide 28 mmol/L (22-29); Chloride 102 mmol/L (98-107); Estimated GFR-MDRD 43; Globulin 3.2 g/dL (2.4-3.5); Glucose 102 mg/dL (70-105); Potassium 4.1 mmol/L (3.5-5.1); Protein, Total 6.6 g/dL (6.0-8.3); Sodium 141 mmol/L (136-145)
[2018-11-30] MEDS: Meropenem 1 GM in Sodium Chloride 0.9% 100 ML IVPB SCH ×3 (06:05→21:15)
[2018-11-30] MEDS: Gabapentin 400 MG CAP PO SCH ×3 (08:16→20:38)
[2018-11-30] MEDS: Torsemide 20 MG TAB PO SCH (08:16)
[2018-11-30] MEDS: Atorvastatin Calcium 10 MG TAB PO SCH (08:16)
[2018-11-30] MEDS: Clotrimazole 1% Cream 15 GM TUBE TOP SCH ×2 (08:17→20:39)
[2018-11-30] MEDS: Clopidogrel Bisulfate 75 MG TAB PO SCH (08:17)
[2018-11-30] MEDS: FLUoxetine HCl 20 MG CAP PO SCH (08:17)
[2018-11-30] MEDS: Sacubitril 24.5 MG/Valsartan 25.5 MG TABLET PO SCH ×2 (08:17→20:37)
[2018-11-30] MEDS: Saccharomyces boulardii 250 MG CAP PO SCH (08:20)
[2018-11-30] MEDS: Lantus 1000 UNITS/10 ML VIAL SC SCH ×2 (08:21→20:41)
[2018-11-30] MEDS: Vancomycin HCl 750 MG in Sodium Chloride 0.9% 250 ML 250 ML IVPB SCH (11:21)
[2018-11-30 11:25] LABS: Vancomycin, Trough 19.2 ug/mL
[2018-11-30] MEDS: HumaLOG 300 UNITS/3 ML VIAL SC PRN ×2 (11:54→20:48)
[2018-11-30] MEDS: traZODone HCl 50 MG TAB PO PRN (20:45)
[2018-12-01] MEDS: Meropenem 1 GM in Sodium Chloride 0.9% 100 ML IVPB SCH ×3 (05:32→21:49)
[2018-12-01] MEDS: HYDROcodone/Acetaminophen 10/325 mg Tablet PO PRN ×4 (05:47→20:57)
[2018-12-01] MEDS: Clopidogrel Bisulfate 75 MG TAB PO SCH (08:45)
[2018-12-01] MEDS: Atorvastatin Calcium 10 MG TAB PO SCH (08:45)
[2018-12-01] MEDS: FLUoxetine HCl 20 MG CAP PO SCH (08:45)
[2018-12-01] MEDS: Saccharomyces boulardii 250 MG CAP PO SCH (08:45)
[2018-12-01] MEDS: Torsemide 20 MG TAB PO SCH (08:46)
[2018-12-01] MEDS: Sacubitril 24.5 MG/Valsartan 25.5 MG TABLET PO SCH ×2 (08:46→20:42)
[2018-12-01] MEDS: Gabapentin 400 MG CAP PO SCH ×3 (08:46→20:43)
[2018-12-01] MEDS: Lantus 1000 UNITS/10 ML VIAL SC SCH ×2 (08:47→20:44)
[2018-12-01] MEDS: Triple Antibiotic Oint 1 GM Packet TOP SCH ×2 (08:47→20:57)
[2018-12-01] MEDS: Clotrimazole 1% Cream 15 GM TUBE TOP SCH ×2 (08:47→20:43)
[2018-12-01] MEDS: Vancomycin HCl 750 MG in Sodium Chloride 0.9% 250 ML 250 ML IVPB SCH (12:05)
[2018-12-01] MEDS: HumaLOG 300 UNITS/3 ML VIAL SC PRN ×2 (12:49→17:18)
[2018-12-01] MEDS ORDERED: HYDROcodone/Acetaminophen 10/325 mg Tablet PO PRN (21:05)
[2018-12-02] MEDS: HYDROcodone/Acetaminophen 10/325 mg Tablet PO PRN ×4 (03:38→22:02)
[2018-12-02] MEDS: Meropenem 1 GM in Sodium Chloride 0.9% 100 ML IVPB SCH ×3 (05:56→21:01)
[2018-12-02] MEDS: Saccharomyces boulardii 250 MG CAP PO SCH (08:32)
[2018-12-02] MEDS: Atorvastatin Calcium 10 MG TAB PO SCH (08:32)
[2018-12-02] MEDS: Torsemide 20 MG TAB PO SCH (08:32)
[2018-12-02] MEDS: FLUoxetine HCl 20 MG CAP PO SCH (08:32)
[2018-12-02] MEDS: Sacubitril 24.5 MG/Valsartan 25.5 MG TABLET PO SCH ×2 (08:33→20:28)
[2018-12-02] MEDS: Gabapentin 400 MG CAP PO SCH ×3 (08:33→20:26)
[2018-12-02] MEDS: Clopidogrel Bisulfate 75 MG TAB PO SCH (08:33)
[2018-12-02] MEDS: Lantus 1000 UNITS/10 ML VIAL SC SCH ×2 (08:33→20:26)
[2018-12-02] MEDS: Triple Antibiotic Oint 1 GM Packet TOP SCH ×2 (08:33→20:28)
[2018-12-02] MEDS: Clotrimazole 1% Cream 15 GM TUBE TOP SCH ×2 (08:33→20:26)
[2018-12-02] MEDS: HumaLOG 300 UNITS/3 ML VIAL SC PRN ×4 (08:34→20:56)
[2018-12-02] MEDS: Vancomycin HCl 750 MG in Sodium Chloride 0.9% 250 ML 250 ML IVPB SCH (11:19)
[2018-12-02] MEDS: Bisacodyl 5 MG TAB PO PRN (14:51)
[2018-12-02] MEDS: traZODone HCl 50 MG TAB PO PRN (20:58)
[2018-12-03] MEDS: Meropenem 1 GM in Sodium Chloride 0.9% 100 ML IVPB SCH ×3 (05:20→21:10)
[2018-12-03] MEDS: Clotrimazole 1% Cream 15 GM TUBE TOP SCH ×2 (08:12→20:35)
[2018-12-03] MEDS: Saccharomyces boulardii 250 MG CAP PO SCH (08:12)
[2018-12-03] MEDS: FLUoxetine HCl 20 MG CAP PO SCH (08:12)
[2018-12-03] MEDS: Atorvastatin Calcium 10 MG TAB PO SCH (08:12)
[2018-12-03] MEDS: HYDROcodone/Acetaminophen 10/325 mg Tablet PO PRN ×2 (08:12→21:12)
[2018-12-03] MEDS: Sacubitril 24.5 MG/Valsartan 25.5 MG TABLET PO SCH ×2 (08:13→20:35)
[2018-12-03] MEDS: Torsemide 20 MG TAB PO SCH (08:13)
[2018-12-03] MEDS: Lantus 1000 UNITS/10 ML VIAL SC SCH ×2 (08:14→20:36)
[2018-12-03] MEDS: Gabapentin 400 MG CAP PO SCH ×3 (08:14→20:35)
[2018-12-03] MEDS: Clopidogrel Bisulfate 75 MG TAB PO SCH (08:14)
[2018-12-03] MEDS: Triple Antibiotic Oint 1 GM Packet TOP SCH ×2 (08:14→20:35)
[2018-12-03] MEDS: Vancomycin HCl 750 MG in Sodium Chloride 0.9% 250 ML 250 ML IVPB SCH (12:08)
[2018-12-03] MEDS: HumaLOG 300 UNITS/3 ML VIAL SC PRN ×3 (12:08→21:13)
[2018-12-03] MEDS: traZODone HCl 50 MG TAB PO PRN (21:11)
[2018-12-04] MEDS: HYDROcodone/Acetaminophen 10/325 mg Tablet PO PRN ×3 (01:15→13:38)
[2018-12-04] MEDS ORDERED: Cyclobenzaprine 10 MG TAB PO SCH (02:00)
[2018-12-04] MEDS: Meropenem 1 GM in Sodium Chloride 0.9% 100 ML IVPB SCH ×3 (05:15→21:03)
[2018-12-04] MEDS: Atorvastatin Calcium 10 MG TAB PO SCH (08:40)
[2018-12-04] MEDS: Triple Antibiotic Oint 1 GM Packet TOP SCH ×2 (08:41→20:35)
[2018-12-04] MEDS: Torsemide 20 MG TAB PO SCH (08:41)
[2018-12-04] MEDS: FLUoxetine HCl 20 MG CAP PO SCH (08:41)
[2018-12-04] MEDS: Gabapentin 400 MG CAP PO SCH ×3 (08:42→20:35)
[2018-12-04] MEDS: Saccharomyces boulardii 250 MG CAP PO SCH (08:42)
[2018-12-04] MEDS: Lantus 1000 UNITS/10 ML VIAL SC SCH ×2 (08:42→20:35)
[2018-12-04] MEDS: Sacubitril 24.5 MG/Valsartan 25.5 MG TABLET PO SCH ×2 (08:42→20:35)
[2018-12-04] MEDS: Clopidogrel Bisulfate 75 MG TAB PO SCH (08:42)
[2018-12-04] MEDS: Clotrimazole 1% Cream 15 GM TUBE TOP SCH ×2 (08:45→20:35)
[2018-12-04] MEDS: Vancomycin HCl 750 MG in Sodium Chloride 0.9% 250 ML 250 ML IVPB SCH (12:04)
[2018-12-04] MEDS: HumaLOG 300 UNITS/3 ML VIAL SC PRN ×2 (12:05→21:04)
[2018-12-05] MEDS: HYDROcodone/Acetaminophen 10/325 mg Tablet PO PRN ×3 (00:03→16:23)
[2018-12-05] MEDS: Meropenem 1 GM in Sodium Chloride 0.9% 100 ML IVPB SCH ×3 (05:09→22:01)
[2018-12-05] MEDS: FLUoxetine HCl 20 MG CAP PO SCH (08:41)
[2018-12-05] MEDS: Atorvastatin Calcium 10 MG TAB PO SCH (08:41)
[2018-12-05] MEDS: Gabapentin 400 MG CAP PO SCH ×3 (08:41→21:56)
[2018-12-05] MEDS: Clotrimazole 1% Cream 15 GM TUBE TOP SCH ×2 (08:42→21:59)
[2018-12-05] MEDS: Torsemide 20 MG TAB PO SCH (08:42)
[2018-12-05] MEDS: Clopidogrel Bisulfate 75 MG TAB PO SCH (08:42)
[2018-12-05] MEDS: Sacubitril 24.5 MG/Valsartan 25.5 MG TABLET PO SCH ×2 (08:42→21:56)
[2018-12-05] MEDS: Saccharomyces boulardii 250 MG CAP PO SCH (08:43)
[2018-12-05] MEDS: Lantus 1000 UNITS/10 ML VIAL SC SCH ×2 (08:43→21:57)
[2018-12-05] MEDS: Triple Antibiotic Oint 1 GM Packet TOP SCH ×2 (08:43→21:56)
[2018-12-05] MEDS: Vancomycin HCl 750 MG in Sodium Chloride 0.9% 250 ML 250 ML IVPB SCH (11:24)
[2018-12-05] MEDS: HumaLOG 300 UNITS/3 ML VIAL SC PRN ×2 (17:17→17:18)
[2018-12-06] MEDS: HYDROcodone/Acetaminophen 10/325 mg Tablet PO PRN ×4 (03:47→21:22)
[2018-12-06] MEDS: Meropenem 1 GM in Sodium Chloride 0.9% 100 ML IVPB SCH ×3 (06:29→21:23)
[2018-12-06] MEDS: Sacubitril 24.5 MG/Valsartan 25.5 MG TABLET PO SCH ×2 (07:41→21:22)
[2018-12-06] MEDS: Atorvastatin Calcium 10 MG TAB PO SCH (07:41)
[2018-12-06] MEDS: FLUoxetine HCl 20 MG CAP PO SCH (07:41)
[2018-12-06] MEDS: Saccharomyces boulardii 250 MG CAP PO SCH (07:42)
[2018-12-06] MEDS: Metolazone 5 MG TAB PO SCH (07:42)
[2018-12-06] MEDS: Torsemide 20 MG TAB PO SCH (07:42)
[2018-12-06] MEDS: Gabapentin 400 MG CAP PO SCH ×3 (07:42→21:22)
[2018-12-06] MEDS: Clopidogrel Bisulfate 75 MG TAB PO SCH (07:42)
[2018-12-06] MEDS: Lantus 1000 UNITS/10 ML VIAL SC SCH ×2 (07:43→21:28)
[2018-12-06] MEDS: Triple Antibiotic Oint 1 GM Packet TOP SCH ×2 (07:43→21:23)
[2018-12-06] MEDS: Clotrimazole 1% Cream 15 GM TUBE TOP SCH ×2 (07:45→21:00)
[2018-12-06] MEDS: Vancomycin HCl 750 MG in Sodium Chloride 0.9% 250 ML 250 ML IVPB SCH (12:05)
[2018-12-06] MEDS: HumaLOG 300 UNITS/3 ML VIAL SC PRN (16:47)
[2018-12-06] MEDS: traZODone HCl 50 MG TAB PO PRN (21:29)
[2018-12-07 05:20] LABS: ALT (SGPT) 31 U/L (8-55); AST (SGOT) 20 U/L (5-34); Albumin 3.2 g/dL (3.5-5.0); Alkaline Phosphatase 137 U/L (40-150); Anion Gap 12 mmol/L (10-20); BUN (Urea Nitrogen) 93 mg/dL (9.8-20.1); Bilirubin, Total 0.2 mg/dL (0.2-1.2); Calc. Creatinine Clearance 66 mL/min (70-130); Calcium 9.2 mg/dL (7.8-10.44); Carbon Dioxide 32 mmol/L (22-29); Chloride 103 mmol/L (98-107); Estimated GFR-MDRD 40; Globulin 3.3 g/dL (2.4-3.5); Glucose 85 mg/dL (70-105); Potassium 4.2 mmol/L (3.5-5.1); Protein, Total 6.5 g/dL (6.0-8.3); Sodium 143 mmol/L (136-145)
[2018-12-07 05:25] LABS: Anisocytosis SLIGHT = 6-15 cells (100X) (0-5/hpf); Eosinophils 2 % (0-10); Hemoglobin 8.8 g/dL (12.0-16.0); Hypochromia SLIGHT = 6-15 cells (100X) (0-5/hpf); Lymphocytes 27 % (21-51); MDiff Complete? YES; Mean Corpuscular HGB CONC 32.6 g/dL (32.0-36.0); Mean Corpuscular Hemoglobin 30.4 pg (27.0-31.0); Mean Corpuscular Volume 93.1 fL (78.0-98.0); Monocytes 18 % (0-10); Neutrophil 51 % (42-75); Platelet Count 229 thou/uL (130-400); Platelet Morphology Comment Appears Adequate; Poikilocytosis SLIGHT = 6-15 cells (100X) (0-5/hpf); RBC Distribution Width 12.1 % (11.5-14.5); RBC Morphology Abnormal; Reactive Lymphocytes 2 % (0-10); Red Blood Cell (RBC) Count 2.91 mill/uL (4.20-5.40); White Blood Cell (WBC) Count 5.2 thou/uL (4.8-10.8)
[2018-12-07] MEDS: HYDROcodone/Acetaminophen 10/325 mg Tablet PO PRN ×4 (05:34→23:29)
[2018-12-07] MEDS: Meropenem 1 GM in Sodium Chloride 0.9% 100 ML IVPB SCH ×3 (05:38→20:53)
[2018-12-07] MEDS: Lantus 1000 UNITS/10 ML VIAL SC SCH ×2 (08:13→20:47)
[2018-12-07] MEDS: Sacubitril 24.5 MG/Valsartan 25.5 MG TABLET PO SCH ×2 (08:15→20:42)
[2018-12-07] MEDS: Clopidogrel Bisulfate 75 MG TAB PO SCH (08:15)
[2018-12-07] MEDS: FLUoxetine HCl 20 MG CAP PO SCH (08:15)
[2018-12-07] MEDS: Saccharomyces boulardii 250 MG CAP PO SCH (08:15)
[2018-12-07] MEDS: Torsemide 20 MG TAB PO SCH (08:15)
[2018-12-07] MEDS: Gabapentin 400 MG CAP PO SCH ×3 (08:15→20:42)
[2018-12-07] MEDS: Clotrimazole 1% Cream 15 GM TUBE TOP SCH ×2 (08:16→20:42)
[2018-12-07] MEDS: Atorvastatin Calcium 10 MG TAB PO SCH (08:16)
[2018-12-07] MEDS: Triple Antibiotic Oint 1 GM Packet TOP SCH ×2 (08:16→20:43)
[2018-12-07] MEDS: Vancomycin HCl 750 MG in Sodium Chloride 0.9% 250 ML 250 ML IVPB SCH (11:05)
[2018-12-07 11:09] LABS: Vancomycin, Trough 21.7 ug/mL
[2018-12-07 12:09] LABS: CRP (Inflammatory) 2.92 mg/dL (= or < 0.5)
[2018-12-07] MEDS: traZODone HCl 50 MG TAB PO PRN (20:46)
[2018-12-07] MEDS: HumaLOG 300 UNITS/3 ML VIAL SC PRN (20:48)
[2018-12-08] MEDS: HYDROcodone/Acetaminophen 10/325 mg Tablet PO PRN ×3 (03:04→19:22)
[2018-12-08] MEDS: Meropenem 1 GM in Sodium Chloride 0.9% 100 ML IVPB SCH ×3 (05:06→21:55)
[2018-12-08] MEDS ORDERED: tiZANidine HCl 4 MG TAB PO SCH (06:00)
--- NOTE | 2018-12-08 08:08 | RAD ---
THREE VIEWS RIGHT HAND: COMPARISON: None. HISTORY: Right hand pain after slipping out of bed. FINDINGS: Three views right hand show no evidence of acute fracture or dislocation. No soft tissue swelling is seen. No degenerative changes are present. IMPRESSION: No evidence of acute osseous abnormality. POS: [facility]
--- NOTE | 2018-12-08 08:11 | RAD ---
FOUR VIEWS OF THE RIGHT WRIST: HISTORY: Right wrist pain after slipping out of bed. COMPARISON: 03/09/2016. FINDINGS: Four views of the right wrist show no evidence of acute fracture or dislocation. No degenerative libia nges are seen. Mild soft tissue swelling is seen. Vascular calcifications are seen. IMPRESSION: No evidence of acute osseous abnormality. POS: [facility]
--- NOTE | 2018-12-08 08:13 | RAD ---
TWO VIEWS OF THE RIGHT HUMERUS: COMPARISON: None. HISTORY: Fell out of bed with right arm pain. FINDINGS: Two views right humerus show no evidence of acute fracture or dislocation. No soft tissue swelling i s seen. No degenerative changes are present. IMPRESSION: No evidence of acute osseous abnormality. POS: [facility]
--- NOTE | 2018-12-08 08:13 | RAD ---
THREE VIEWS OF THE RIGHT SHOULDER: HISTORY: Slipped out of bed with right shoulder pain. FINDINGS: Three views right shoulder show no evidence of acute fracture or dislocation. No degenerative change s are seen. The visualized right thorax is unremarkable. IMPRESSION: Unremarkable exam. POS: [facility]
[2018-12-08] MEDS: Triple Antibiotic Oint 1 GM Packet TOP SCH ×2 (08:18→20:30)
[2018-12-08] MEDS: Saccharomyces boulardii 250 MG CAP PO SCH (08:19)
[2018-12-08] MEDS: Torsemide 20 MG TAB PO SCH (08:19)
[2018-12-08] MEDS: Sacubitril 24.5 MG/Valsartan 25.5 MG TABLET PO SCH ×2 (08:19→20:25)
[2018-12-08] MEDS: Atorvastatin Calcium 10 MG TAB PO SCH (08:19)
[2018-12-08] MEDS: FLUoxetine HCl 20 MG CAP PO SCH (08:19)
[2018-12-08] MEDS: Clotrimazole 1% Cream 15 GM TUBE TOP SCH ×2 (08:20→20:26)
[2018-12-08] MEDS: Gabapentin 400 MG CAP PO SCH ×3 (08:20→20:25)
[2018-12-08] MEDS: Lantus 1000 UNITS/10 ML VIAL SC SCH ×2 (08:20→21:13)
[2018-12-08] MEDS: Clopidogrel Bisulfate 75 MG TAB PO SCH (08:20)
--- NOTE | 2018-12-08 08:42 | RAD ---
RIGHT FOREARM 2 VIEWS: Date: 12/08/18 HISTORY: Right forearm pain following an injury. FINDINGS/IMPRESSION: No fracture, dislocation, or other significant acute osseous abnormality. POS: [facility]
[2018-12-08] MEDS: Vancomycin HCl 750 MG in Sodium Chloride 0.9% 250 ML 250 ML IVPB SCH (11:42)
[2018-12-08] MEDS: HumaLOG 300 UNITS/3 ML VIAL SC PRN ×2 (11:45→17:44)
[2018-12-08] MEDS ORDERED: Activase 2 MG VIAL CATH SCH (23:00)
[2018-12-08] MEDS ORDERED: Sterile Water 10 ML ONE (23:22)
[2018-12-09] MEDS: Cyclobenzaprine 10 MG TAB PO PRN ×2 (00:29→18:03)
[2018-12-09] MEDS: traZODone HCl 50 MG TAB PO PRN ×2 (00:29→20:59)
[2018-12-09] MEDS: Meropenem 1 GM in Sodium Chloride 0.9% 100 ML IVPB SCH ×3 (05:57→21:06)
[2018-12-09] MEDS ORDERED: Sodium Chloride Irrig Solution 250 ML BOT ONE (09:40)
[2018-12-09] MEDS: Atorvastatin Calcium 10 MG TAB PO SCH (10:06)
[2018-12-09] MEDS: FLUoxetine HCl 20 MG CAP PO SCH (10:07)
[2018-12-09] MEDS: Saccharomyces boulardii 250 MG CAP PO SCH (10:07)
[2018-12-09] MEDS: Torsemide 20 MG TAB PO SCH (10:07)
[2018-12-09] MEDS: Lantus 1000 UNITS/10 ML VIAL SC SCH ×2 (10:08→20:58)
[2018-12-09] MEDS: Triple Antibiotic Oint 1 GM Packet TOP SCH ×2 (10:08→21:00)
[2018-12-09] MEDS: Gabapentin 400 MG CAP PO SCH ×3 (10:08→21:00)
[2018-12-09] MEDS: Clopidogrel Bisulfate 75 MG TAB PO SCH (10:08)
[2018-12-09] MEDS: Sacubitril 24.5 MG/Valsartan 25.5 MG TABLET PO SCH ×2 (10:08→21:00)
[2018-12-09] MEDS: Clotrimazole 1% Cream 15 GM TUBE TOP SCH ×2 (10:09→21:00)
[2018-12-09] MEDS: Vancomycin HCl 750 MG in Sodium Chloride 0.9% 250 ML 250 ML IVPB SCH (12:24)
[2018-12-09] MEDS: HumaLOG 300 UNITS/3 ML VIAL SC PRN ×3 (12:24→20:59)
[2018-12-09] MEDS: HYDROcodone/Acetaminophen 10/325 mg Tablet PO PRN (14:44)
[2018-12-10] MEDS: Meropenem 1 GM in Sodium Chloride 0.9% 100 ML IVPB SCH ×3 (05:15→22:00)
[2018-12-10] MEDS: Triple Antibiotic Oint 1 GM Packet TOP SCH ×2 (09:02→20:43)
[2018-12-10] MEDS: Atorvastatin Calcium 10 MG TAB PO SCH (09:02)
[2018-12-10] MEDS: Gabapentin 400 MG CAP PO SCH ×3 (09:03→20:43)
[2018-12-10] MEDS: Clopidogrel Bisulfate 75 MG TAB PO SCH (09:03)
[2018-12-10] MEDS: Saccharomyces boulardii 250 MG CAP PO SCH (09:03)
[2018-12-10] MEDS: Sacubitril 24.5 MG/Valsartan 25.5 MG TABLET PO SCH ×2 (09:03→20:44)
[2018-12-10] MEDS: Torsemide 20 MG TAB PO SCH (09:03)
[2018-12-10] MEDS: FLUoxetine HCl 20 MG CAP PO SCH (09:03)
[2018-12-10] MEDS: Lantus 1000 UNITS/10 ML VIAL SC SCH ×2 (09:03→21:58)
[2018-12-10] MEDS: Clotrimazole 1% Cream 15 GM TUBE TOP SCH ×2 (09:04→20:44)
[2018-12-10] MEDS: Vancomycin HCl 750 MG in Sodium Chloride 0.9% 250 ML 250 ML IVPB SCH (11:28)
[2018-12-10] MEDS: HumaLOG 300 UNITS/3 ML VIAL SC PRN ×3 (12:00→21:35)
[2018-12-10] MEDS: Cyclobenzaprine 10 MG TAB PO PRN (15:53)
[2018-12-10] MEDS: HYDROcodone/Acetaminophen 10/325 mg Tablet PO PRN (19:15)
[2018-12-10] MEDS: traZODone HCl 50 MG TAB PO PRN (21:29)
[2018-12-11] MEDS: Meropenem 1 GM in Sodium Chloride 0.9% 100 ML IVPB SCH ×3 (05:27→21:17)
[2018-12-11] MEDS: Atorvastatin Calcium 10 MG TAB PO SCH (09:29)
[2018-12-11] MEDS: Lantus 1000 UNITS/10 ML VIAL SC SCH ×2 (09:29→21:15)
[2018-12-11] MEDS: FLUoxetine HCl 20 MG CAP PO SCH (09:30)
[2018-12-11] MEDS: Saccharomyces boulardii 250 MG CAP PO SCH (09:30)
[2018-12-11] MEDS: Sacubitril 24.5 MG/Valsartan 25.5 MG TABLET PO SCH ×2 (09:30→21:16)
[2018-12-11] MEDS: Triple Antibiotic Oint 1 GM Packet TOP SCH ×2 (09:31→21:16)
[2018-12-11] MEDS: Gabapentin 400 MG CAP PO SCH ×3 (09:31→21:15)
[2018-12-11] MEDS: Torsemide 20 MG TAB PO SCH (09:31)
[2018-12-11] MEDS: Clopidogrel Bisulfate 75 MG TAB PO SCH (09:32)
[2018-12-11] MEDS: Clotrimazole 1% Cream 15 GM TUBE TOP SCH ×2 (09:32→21:15)
[2018-12-11] MEDS: Vancomycin HCl 750 MG in Sodium Chloride 0.9% 250 ML 250 ML IVPB SCH (11:49)
[2018-12-11] MEDS: HumaLOG 300 UNITS/3 ML VIAL SC PRN (17:18)
[2018-12-11] MEDS: Cyclobenzaprine 10 MG TAB PO PRN (21:17)
[2018-12-11] MEDS: traZODone HCl 50 MG TAB PO PRN (21:17)
[2018-12-11] MEDS: HYDROcodone/Acetaminophen 10/325 mg Tablet PO PRN (21:52)
[2018-12-12] MEDS: HYDROcodone/Acetaminophen 10/325 mg Tablet PO PRN ×2 (02:22→22:28)
[2018-12-12] MEDS: Meropenem 1 GM in Sodium Chloride 0.9% 100 ML IVPB SCH ×3 (05:00→21:41)
[2018-12-12] MEDS: Atorvastatin Calcium 10 MG TAB PO SCH (09:10)
[2018-12-12] MEDS: Triple Antibiotic Oint 1 GM Packet TOP SCH ×2 (09:11→21:40)
[2018-12-12] MEDS: Sacubitril 24.5 MG/Valsartan 25.5 MG TABLET PO SCH ×2 (09:11→21:40)
[2018-12-12] MEDS: Clotrimazole 1% Cream 15 GM TUBE TOP SCH ×2 (09:11→21:39)
[2018-12-12] MEDS: Saccharomyces boulardii 250 MG CAP PO SCH (09:11)
[2018-12-12] MEDS: Clopidogrel Bisulfate 75 MG TAB PO SCH (09:11)
[2018-12-12] MEDS: Torsemide 20 MG TAB PO SCH (09:11)
[2018-12-12] MEDS: Gabapentin 400 MG CAP PO SCH ×3 (09:11→21:39)
[2018-12-12] MEDS: FLUoxetine HCl 20 MG CAP PO SCH (09:11)
[2018-12-12] MEDS: Lantus 1000 UNITS/10 ML VIAL SC SCH ×2 (09:12→21:40)
[2018-12-12] MEDS: Vancomycin HCl 750 MG in Sodium Chloride 0.9% 250 ML 250 ML IVPB SCH (11:19)
[2018-12-12] MEDS: HumaLOG 300 UNITS/3 ML VIAL SC PRN (12:15)
[2018-12-13] MEDS: Meropenem 1 GM in Sodium Chloride 0.9% 100 ML IVPB SCH ×3 (06:28→22:47)
[2018-12-13] MEDS: HYDROcodone/Acetaminophen 10/325 mg Tablet PO PRN ×2 (08:28→20:34)
[2018-12-13] MEDS: Sacubitril 24.5 MG/Valsartan 25.5 MG TABLET PO SCH ×2 (08:29→20:34)
[2018-12-13] MEDS: Torsemide 20 MG TAB PO SCH (08:29)
[2018-12-13] MEDS: Clopidogrel Bisulfate 75 MG TAB PO SCH (08:29)
[2018-12-13] MEDS: Triple Antibiotic Oint 1 GM Packet TOP SCH ×2 (08:29→20:34)
[2018-12-13] MEDS: FLUoxetine HCl 20 MG CAP PO SCH (08:29)
[2018-12-13] MEDS: Gabapentin 400 MG CAP PO SCH ×3 (08:29→20:34)
[2018-12-13] MEDS: Metolazone 5 MG TAB PO SCH (08:29)
[2018-12-13] MEDS: Clotrimazole 1% Cream 15 GM TUBE TOP SCH ×2 (08:30→20:38)
[2018-12-13] MEDS: Lantus 1000 UNITS/10 ML VIAL SC SCH ×2 (08:30→20:56)
[2018-12-13] MEDS: Atorvastatin Calcium 10 MG TAB PO SCH (09:14)
[2018-12-13] MEDS: Saccharomyces boulardii 250 MG CAP PO SCH (09:15)
[2018-12-13] MEDS: Vancomycin HCl 750 MG in Sodium Chloride 0.9% 250 ML 250 ML IVPB SCH (11:31)
[2018-12-14] MEDS: HYDROcodone/Acetaminophen 10/325 mg Tablet PO PRN ×2 (02:40→19:28)
[2018-12-14 05:16] LABS: #Basophils 0.1 thou/uL (0.0-0.2); #Eosinphils 0.3 thou/uL (0.0-0.7); #Lymphocytes 1.7 thou/uL (1.20-3.40); #Monocytes 0.8 thou/uL (0.11-0.59); #Neutrophils 3.9 thou/uL (1.40-6.50); %Lymphocytes 24.6 % (21.0-51.0); %Monocytes 12.3 % (0.0-10.0); %Neutrophils 58.1 % (42.0-75.0); Hemoglobin 9.1 g/dL (12.0-16.0); Mean Corpuscular HGB CONC 34.1 g/dL (32.0-36.0); Mean Corpuscular Hemoglobin 31.5 pg (27.0-31.0); Mean Corpuscular Volume 92.6 fL (78.0-98.0); Mean Platelet Volume 6.1 fL (7.4-10.4); Platelet Count 237 thou/uL (130-400); RBC Distribution Width 12.1 % (11.5-14.5); Red Blood Cell (RBC) Count 2.88 mill/uL (4.20-5.40); White Blood Cell (WBC) Count 6.8 thou/uL (4.8-10.8)
[2018-12-14 05:21] LABS: ALT (SGPT) 50 U/L (8-55); AST (SGOT) 21 U/L (5-34); Albumin 3.4 g/dL (3.5-5.0); Alkaline Phosphatase 168 U/L (40-150); Anion Gap 14 mmol/L (10-20); BUN (Urea Nitrogen) 56 mg/dL (9.8-20.1); Bilirubin, Total 0.2 mg/dL (0.2-1.2); Calc. Creatinine Clearance 62 mL/min (70-130); Calcium 9.2 mg/dL (7.8-10.44); Carbon Dioxide 31 mmol/L (22-29); Chloride 100 mmol/L (98-107); Estimated GFR-MDRD 39; Globulin 3.2 g/dL (2.4-3.5); Glucose 103 mg/dL (70-105); Potassium 3.7 mmol/L (3.5-5.1); Protein, Total 6.6 g/dL (6.0-8.3); Sodium 141 mmol/L (136-145)
[2018-12-14] MEDS: Meropenem 1 GM in Sodium Chloride 0.9% 100 ML IVPB SCH ×3 (05:51→21:08)
[2018-12-14] MEDS: Atorvastatin Calcium 10 MG TAB PO SCH (08:44)
[2018-12-14] MEDS: Torsemide 20 MG TAB PO SCH (08:45)
[2018-12-14] MEDS: Clopidogrel Bisulfate 75 MG TAB PO SCH (08:45)
[2018-12-14] MEDS: Gabapentin 400 MG CAP PO SCH ×3 (08:45→20:49)
[2018-12-14] MEDS: Clotrimazole 1% Cream 15 GM TUBE TOP SCH ×2 (08:45→20:51)
[2018-12-14] MEDS: Sacubitril 24.5 MG/Valsartan 25.5 MG TABLET PO SCH ×2 (08:45→20:49)
[2018-12-14] MEDS: Triple Antibiotic Oint 1 GM Packet TOP SCH ×2 (08:45→20:49)
[2018-12-14] MEDS: FLUoxetine HCl 20 MG CAP PO SCH (08:45)
[2018-12-14] MEDS: Lantus 1000 UNITS/10 ML VIAL SC SCH ×2 (08:46→20:49)
[2018-12-14] MEDS: Saccharomyces boulardii 250 MG CAP PO SCH (08:48)
[2018-12-14 11:51] LABS: Vancomycin, Trough 18.2 ug/mL
[2018-12-14] MEDS: Vancomycin HCl 750 MG in Sodium Chloride 0.9% 250 ML 250 ML IVPB SCH (11:59)
[2018-12-14] MEDS: HumaLOG 300 UNITS/3 ML VIAL SC PRN (20:52)
[2018-12-14] MEDS: traZODone HCl 50 MG TAB PO PRN (21:09)
[2018-12-15] MEDS: Cyclobenzaprine 10 MG TAB PO PRN (00:14)
[2018-12-15] MEDS: Meropenem 1 GM in Sodium Chloride 0.9% 100 ML IVPB SCH ×3 (05:37→20:58)
[2018-12-15] MEDS: Gabapentin 400 MG CAP PO SCH ×3 (08:56→20:56)
[2018-12-15] MEDS: Torsemide 20 MG TAB PO SCH (08:56)
[2018-12-15] MEDS: Saccharomyces boulardii 250 MG CAP PO SCH (08:56)
[2018-12-15] MEDS: FLUoxetine HCl 20 MG CAP PO SCH (08:57)
[2018-12-15] MEDS: Clopidogrel Bisulfate 75 MG TAB PO SCH (08:57)
[2018-12-15] MEDS: Sacubitril 24.5 MG/Valsartan 25.5 MG TABLET PO SCH ×2 (08:57→20:56)
[2018-12-15] MEDS: Atorvastatin Calcium 10 MG TAB PO SCH (08:57)
[2018-12-15] MEDS: Triple Antibiotic Oint 1 GM Packet TOP SCH ×2 (08:58→20:56)
[2018-12-15] MEDS: Lantus 1000 UNITS/10 ML VIAL SC SCH ×2 (08:58→20:56)
[2018-12-15] MEDS: Clotrimazole 1% Cream 15 GM TUBE TOP SCH ×2 (08:59→20:56)
[2018-12-15] MEDS: HYDROcodone/Acetaminophen 10/325 mg Tablet PO PRN ×2 (10:48→16:11)
[2018-12-15] MEDS: Vancomycin HCl 750 MG in Sodium Chloride 0.9% 250 ML 250 ML IVPB SCH (11:25)
[2018-12-15] MEDS: HumaLOG 300 UNITS/3 ML VIAL SC PRN ×2 (11:49→20:57)
[2018-12-15] MEDS: traZODone HCl 50 MG TAB PO PRN (21:05)
[2018-12-16] MEDS: Meropenem 1 GM in Sodium Chloride 0.9% 100 ML IVPB SCH ×3 (05:03→21:02)
[2018-12-16] MEDS: HYDROcodone/Acetaminophen 10/325 mg Tablet PO PRN ×3 (05:04→21:04)
[2018-12-16] MEDS: Atorvastatin Calcium 10 MG TAB PO SCH (09:34)
[2018-12-16] MEDS: Saccharomyces boulardii 250 MG CAP PO SCH (09:35)
[2018-12-16] MEDS: Torsemide 20 MG TAB PO SCH (09:35)
[2018-12-16] MEDS: Clopidogrel Bisulfate 75 MG TAB PO SCH (09:35)
[2018-12-16] MEDS: Gabapentin 400 MG CAP PO SCH ×3 (09:35→20:24)
[2018-12-16] MEDS: FLUoxetine HCl 20 MG CAP PO SCH (09:35)
[2018-12-16] MEDS: Clotrimazole 1% Cream 15 GM TUBE TOP SCH ×2 (09:36→20:24)
[2018-12-16] MEDS: Sacubitril 24.5 MG/Valsartan 25.5 MG TABLET PO SCH ×2 (09:36→20:24)
[2018-12-16] MEDS: Lantus 1000 UNITS/10 ML VIAL SC SCH ×2 (09:36→21:02)
[2018-12-16] MEDS: Triple Antibiotic Oint 1 GM Packet TOP SCH ×2 (09:36→20:24)
[2018-12-16] MEDS: Vancomycin HCl 750 MG in Sodium Chloride 0.9% 250 ML 250 ML IVPB SCH (11:55)
[2018-12-16] MEDS: HumaLOG 300 UNITS/3 ML VIAL SC PRN ×3 (11:55→21:03)
[2018-12-16] MEDS ORDERED: Sodium Chloride Irrig Solution 250 ML BOT ONE (12:27)
[2018-12-16] MEDS: traZODone HCl 50 MG TAB PO PRN (21:03)
[2018-12-17] MEDS: Meropenem 1 GM in Sodium Chloride 0.9% 100 ML IVPB SCH ×3 (05:14→21:07)
[2018-12-17] MEDS: Lantus 1000 UNITS/10 ML VIAL SC SCH ×2 (08:33→20:50)
[2018-12-17] MEDS: FLUoxetine HCl 20 MG CAP PO SCH (08:34)
[2018-12-17] MEDS: Sacubitril 24.5 MG/Valsartan 25.5 MG TABLET PO SCH ×2 (08:34→20:51)
[2018-12-17] MEDS: Clopidogrel Bisulfate 75 MG TAB PO SCH (08:34)
[2018-12-17] MEDS: Triple Antibiotic Oint 1 GM Packet TOP SCH ×2 (08:34→20:51)
[2018-12-17] MEDS: Gabapentin 400 MG CAP PO SCH ×3 (08:34→20:50)
[2018-12-17] MEDS: Saccharomyces boulardii 250 MG CAP PO SCH (08:34)
[2018-12-17] MEDS: Atorvastatin Calcium 10 MG TAB PO SCH (08:34)
[2018-12-17] MEDS: Torsemide 20 MG TAB PO SCH (08:34)
[2018-12-17] MEDS: Clotrimazole 1% Cream 15 GM TUBE TOP SCH ×2 (08:35→20:49)
[2018-12-17] MEDS: HumaLOG 300 UNITS/3 ML VIAL SC PRN ×2 (11:40→16:56)
[2018-12-17] MEDS: Vancomycin HCl 750 MG in Sodium Chloride 0.9% 250 ML 250 ML IVPB SCH (11:44)
[2018-12-17] MEDS: HYDROcodone/Acetaminophen 10/325 mg Tablet PO PRN (19:22)
[2018-12-17] MEDS: traZODone HCl 50 MG TAB PO PRN (21:15)
[2018-12-18] MEDS: HYDROcodone/Acetaminophen 10/325 mg Tablet PO PRN ×2 (04:14→19:30)
[2018-12-18] MEDS: Meropenem 1 GM in Sodium Chloride 0.9% 100 ML IVPB SCH ×3 (05:18→21:08)
[2018-12-18] MEDS: Atorvastatin Calcium 10 MG TAB PO SCH (08:18)
[2018-12-18] MEDS: Gabapentin 400 MG CAP PO SCH ×3 (08:18→20:30)
[2018-12-18] MEDS: Lantus 1000 UNITS/10 ML VIAL SC SCH ×2 (08:18→20:39)
[2018-12-18] MEDS: Saccharomyces boulardii 250 MG CAP PO SCH (08:18)
[2018-12-18] MEDS: Torsemide 20 MG TAB PO SCH (08:18)
[2018-12-18] MEDS: FLUoxetine HCl 20 MG CAP PO SCH (08:19)
[2018-12-18] MEDS: Sacubitril 24.5 MG/Valsartan 25.5 MG TABLET PO SCH ×2 (08:19→20:30)
[2018-12-18] MEDS: Triple Antibiotic Oint 1 GM Packet TOP SCH ×2 (08:19→20:30)
[2018-12-18] MEDS: Clopidogrel Bisulfate 75 MG TAB PO SCH (08:19)
[2018-12-18] MEDS: Clotrimazole 1% Cream 15 GM TUBE TOP SCH ×2 (08:20→20:30)
[2018-12-18] MEDS: Vancomycin HCl 750 MG in Sodium Chloride 0.9% 250 ML 250 ML IVPB SCH (12:03)
[2018-12-18] MEDS: traZODone HCl 50 MG TAB PO PRN (20:38)
[2018-12-19] MEDS: Meropenem 1 GM in Sodium Chloride 0.9% 100 ML IVPB SCH ×3 (05:13→21:14)
[2018-12-19] MEDS: Gabapentin 400 MG CAP PO SCH ×3 (08:59→20:23)
[2018-12-19] MEDS: Atorvastatin Calcium 10 MG TAB PO SCH (08:59)
[2018-12-19] MEDS: Clopidogrel Bisulfate 75 MG TAB PO SCH (08:59)
[2018-12-19] MEDS: FLUoxetine HCl 20 MG CAP PO SCH (08:59)
[2018-12-19] MEDS: Triple Antibiotic Oint 1 GM Packet TOP SCH ×2 (08:59→20:22)
[2018-12-19] MEDS: Saccharomyces boulardii 250 MG CAP PO SCH (09:00)
[2018-12-19] MEDS: Clotrimazole 1% Cream 15 GM TUBE TOP SCH ×2 (09:00→20:23)
[2018-12-19] MEDS: Torsemide 20 MG TAB PO SCH (09:00)
[2018-12-19] MEDS: Lantus 1000 UNITS/10 ML VIAL SC SCH ×2 (09:00→20:48)
[2018-12-19] MEDS: Sacubitril 24.5 MG/Valsartan 25.5 MG TABLET PO SCH ×2 (09:00→20:22)
[2018-12-19] MEDS: HumaLOG 300 UNITS/3 ML VIAL SC PRN ×2 (12:03→17:08)
[2018-12-19] MEDS: Vancomycin HCl 750 MG in Sodium Chloride 0.9% 250 ML 250 ML IVPB SCH (12:21)
[2018-12-19] MEDS: HYDROcodone/Acetaminophen 10/325 mg Tablet PO PRN (18:50)
[2018-12-19] MEDS: traZODone HCl 50 MG TAB PO PRN (20:54)
[2018-12-20] MEDS: Meropenem 1 GM in Sodium Chloride 0.9% 100 ML IVPB SCH ×3 (05:31→21:00)
[2018-12-20] MEDS: Clotrimazole 1% Cream 15 GM TUBE TOP SCH ×2 (08:24→20:39)
[2018-12-20] MEDS: Atorvastatin Calcium 10 MG TAB PO SCH (08:24)
[2018-12-20] MEDS: Saccharomyces boulardii 250 MG CAP PO SCH (08:24)
[2018-12-20] MEDS: Triple Antibiotic Oint 1 GM Packet TOP SCH ×2 (08:25→20:39)
[2018-12-20] MEDS: Lantus 1000 UNITS/10 ML VIAL SC SCH ×2 (08:25→20:54)
[2018-12-20] MEDS: FLUoxetine HCl 20 MG CAP PO SCH (08:25)
[2018-12-20] MEDS: Clopidogrel Bisulfate 75 MG TAB PO SCH (08:25)
[2018-12-20] MEDS: Gabapentin 400 MG CAP PO SCH ×3 (08:25→20:39)
[2018-12-20] MEDS: Torsemide 20 MG TAB PO SCH (08:25)
[2018-12-20] MEDS: Sacubitril 24.5 MG/Valsartan 25.5 MG TABLET PO SCH ×2 (08:25→20:39)
[2018-12-20] MEDS: Metolazone 5 MG TAB PO SCH (08:26)
[2018-12-20] MEDS: Vancomycin HCl 750 MG in Sodium Chloride 0.9% 250 ML 250 ML IVPB SCH (12:08)
[2018-12-20] MEDS: HumaLOG 300 UNITS/3 ML VIAL SC PRN ×3 (12:10→20:54)
[2018-12-20] MEDS: HYDROcodone/Acetaminophen 10/325 mg Tablet PO PRN ×2 (15:26→20:55)
[2018-12-20] MEDS: traZODone HCl 50 MG TAB PO PRN (20:55)
[2018-12-21 05:05] LABS: #Basophils 0.1 thou/uL (0.0-0.2); #Eosinphils 0.2 thou/uL (0.0-0.7); #Lymphocytes 1.7 thou/uL (1.20-3.40); #Monocytes 0.8 thou/uL (0.11-0.59); #Neutrophils 3.2 thou/uL (1.40-6.50); %Lymphocytes 28.7 % (21.0-51.0); %Monocytes 13.9 % (0.0-10.0); %Neutrophils 53.5 % (42.0-75.0); Hemoglobin 9.1 g/dL (12.0-16.0); Mean Corpuscular HGB CONC 34.3 g/dL (32.0-36.0); Mean Corpuscular Volume 90.5 fL (78.0-98.0); Mean Platelet Volume 6.5 fL (7.4-10.4); Platelet Count 224 thou/uL (130-400); Red Blood Cell (RBC) Count 2.93 mill/uL (4.20-5.40)
[2018-12-21] MEDS: Meropenem 1 GM in Sodium Chloride 0.9% 100 ML IVPB SCH (05:09)
[2018-12-21 05:20] LABS: ALT (SGPT) 64 U/L (8-55); AST (SGOT) 34 U/L (5-34); Albumin 3.4 g/dL (3.5-5.0); Alkaline Phosphatase 168 U/L (40-150); Anion Gap 13 mmol/L (10-20); BUN (Urea Nitrogen) 46 mg/dL (9.8-20.1); Bilirubin, Total 0.3 mg/dL (0.2-1.2); Calc. Creatinine Clearance 67 mL/min (70-130); Calcium 9.4 mg/dL (7.8-10.44); Carbon Dioxide 34 mmol/L (22-29); Chloride 99 mmol/L (98-107); Estimated GFR-MDRD 42; Globulin 3.2 g/dL (2.4-3.5); Glucose 79 mg/dL (70-105); Potassium 3.8 mmol/L (3.5-5.1); Protein, Total 6.6 g/dL (6.0-8.3); Sodium 142 mmol/L (136-145)
[2018-12-21] MEDS: Lantus 1000 UNITS/10 ML VIAL SC SCH ×2 (08:09→21:04)
[2018-12-21] MEDS: Sacubitril 24.5 MG/Valsartan 25.5 MG TABLET PO SCH ×2 (08:10→21:05)
[2018-12-21] MEDS: Torsemide 20 MG TAB PO SCH (08:10)
[2018-12-21] MEDS: Atorvastatin Calcium 10 MG TAB PO SCH (08:10)
[2018-12-21] MEDS: Triple Antibiotic Oint 1 GM Packet TOP SCH ×2 (08:10→21:05)
[2018-12-21] MEDS: Clopidogrel Bisulfate 75 MG TAB PO SCH (08:10)
[2018-12-21] MEDS: Saccharomyces boulardii 250 MG CAP PO SCH (08:11)
[2018-12-21] MEDS: FLUoxetine HCl 20 MG CAP PO SCH (08:11)
[2018-12-21] MEDS: Clotrimazole 1% Cream 15 GM TUBE TOP SCH ×2 (08:11→21:03)
[2018-12-21] MEDS: Gabapentin 400 MG CAP PO SCH ×3 (08:11→21:04)
[2018-12-21] MEDS: HYDROcodone/Acetaminophen 10/325 mg Tablet PO PRN ×2 (11:42→17:07)
[2018-12-21] MEDS: HumaLOG 300 UNITS/3 ML VIAL SC PRN (21:04)
[2018-12-21] MEDS: traZODone HCl 50 MG TAB PO PRN (21:05)
[2018-12-21] MEDS: Cyclobenzaprine 10 MG TAB PO PRN (21:09)
[2018-12-22] MEDS: HYDROcodone/Acetaminophen 10/325 mg Tablet PO PRN ×2 (08:00→20:23)
[2018-12-22] MEDS: Saccharomyces boulardii 250 MG CAP PO SCH (08:03)
[2018-12-22] MEDS: Triple Antibiotic Oint 1 GM Packet TOP SCH ×2 (08:03→20:23)
[2018-12-22] MEDS: Atorvastatin Calcium 10 MG TAB PO SCH (08:03)
[2018-12-22] MEDS: Sacubitril 24.5 MG/Valsartan 25.5 MG TABLET PO SCH ×2 (08:03→20:23)
[2018-12-22] MEDS: Gabapentin 400 MG CAP PO SCH ×3 (08:04→20:23)
[2018-12-22] MEDS: FLUoxetine HCl 20 MG CAP PO SCH (08:04)
[2018-12-22] MEDS: Clopidogrel Bisulfate 75 MG TAB PO SCH (08:04)
[2018-12-22] MEDS: Clotrimazole 1% Cream 15 GM TUBE TOP SCH ×2 (08:04→20:25)
[2018-12-22] MEDS: Lantus 1000 UNITS/10 ML VIAL SC SCH ×2 (08:05→20:25)
[2018-12-22] MEDS: Torsemide 20 MG TAB PO SCH ×2 (08:09→13:55)
[2018-12-22] MEDS: HumaLOG 300 UNITS/3 ML VIAL SC PRN (17:30)
[2018-12-22] MEDS: traZODone HCl 50 MG TAB PO PRN (20:23)
[2018-12-23] MEDS: FLUoxetine HCl 20 MG CAP PO SCH (08:54)
[2018-12-23] MEDS: Lantus 1000 UNITS/10 ML VIAL SC SCH ×2 (08:54→20:19)
[2018-12-23] MEDS: Sacubitril 24.5 MG/Valsartan 25.5 MG TABLET PO SCH ×2 (08:54→20:19)
[2018-12-23] MEDS: Torsemide 20 MG TAB PO SCH (08:54)
[2018-12-23] MEDS: Clopidogrel Bisulfate 75 MG TAB PO SCH (08:54)
[2018-12-23] MEDS: Gabapentin 400 MG CAP PO SCH ×3 (08:54→20:19)
[2018-12-23] MEDS: Saccharomyces boulardii 250 MG CAP PO SCH (08:55)
[2018-12-23] MEDS: Atorvastatin Calcium 10 MG TAB PO SCH (08:55)
[2018-12-23] MEDS: Triple Antibiotic Oint 1 GM Packet TOP SCH ×2 (08:55→20:19)
[2018-12-23] MEDS: Clotrimazole 1% Cream 15 GM TUBE TOP SCH ×2 (08:56→20:20)
[2018-12-23] MEDS ORDERED: Sodium Chloride Irrig Solution 250 ML BOT ONE (11:28)
[2018-12-23] MEDS: HYDROcodone/Acetaminophen 10/325 mg Tablet PO PRN ×2 (11:56→18:54)
[2018-12-23] MEDS: HumaLOG 300 UNITS/3 ML VIAL SC PRN (11:58)
[2018-12-23] MEDS: Cyclobenzaprine 10 MG TAB PO PRN (20:19)
[2018-12-23] MEDS: traZODone HCl 50 MG TAB PO PRN (20:23)
[2018-12-24] MEDS: HYDROcodone/Acetaminophen 10/325 mg Tablet PO PRN ×2 (04:51→20:55)
[2018-12-24] MEDS: Atorvastatin Calcium 10 MG TAB PO SCH (09:08)
[2018-12-24] MEDS: Clopidogrel Bisulfate 75 MG TAB PO SCH (09:08)
[2018-12-24] MEDS: Sacubitril 24.5 MG/Valsartan 25.5 MG TABLET PO SCH ×2 (09:09→20:56)
[2018-12-24] MEDS: Lantus 1000 UNITS/10 ML VIAL SC SCH ×2 (09:09→20:56)
[2018-12-24] MEDS: Gabapentin 400 MG CAP PO SCH ×3 (09:09→20:56)
[2018-12-24] MEDS: FLUoxetine HCl 20 MG CAP PO SCH (09:09)
[2018-12-24] MEDS: Clotrimazole 1% Cream 15 GM TUBE TOP SCH ×2 (09:09→20:57)
[2018-12-24] MEDS: Torsemide 20 MG TAB PO SCH (09:09)
[2018-12-24] MEDS: Saccharomyces boulardii 250 MG CAP PO SCH (09:09)
[2018-12-24] MEDS: Triple Antibiotic Oint 1 GM Packet TOP SCH ×2 (09:10→20:56)
[2018-12-24] MEDS: HumaLOG 300 UNITS/3 ML VIAL SC PRN ×3 (12:03→21:02)
[2018-12-24] MEDS: Cyclobenzaprine 10 MG TAB PO PRN (12:07)
[2018-12-24] MEDS: traZODone HCl 50 MG TAB PO PRN (20:56)
[2018-12-25] MEDS: Atorvastatin Calcium 10 MG TAB PO SCH (08:53)
[2018-12-25] MEDS: Clopidogrel Bisulfate 75 MG TAB PO SCH (08:55)
[2018-12-25] MEDS: FLUoxetine HCl 20 MG CAP PO SCH (08:55)
[2018-12-25] MEDS: Clotrimazole 1% Cream 15 GM TUBE TOP SCH ×2 (08:55→21:31)
[2018-12-25] MEDS: Lantus 1000 UNITS/10 ML VIAL SC SCH ×2 (08:56→21:34)
[2018-12-25] MEDS: Gabapentin 400 MG CAP PO SCH ×3 (08:56→21:32)
[2018-12-25 08:58] VITALS: BMI 32.9
[2018-12-25] MEDS: Sacubitril 24.5 MG/Valsartan 25.5 MG TABLET PO SCH ×2 (08:58→21:32)
[2018-12-25] MEDS: Saccharomyces boulardii 250 MG CAP PO SCH (08:58)
[2018-12-25] MEDS: Triple Antibiotic Oint 1 GM Packet TOP SCH ×2 (08:58→21:32)
[2018-12-25] MEDS: Torsemide 20 MG TAB PO SCH (08:59)
[2018-12-25] MEDS: HYDROcodone/Acetaminophen 10/325 mg Tablet PO PRN ×2 (13:36→21:33)
[2018-12-25] MEDS: HumaLOG 300 UNITS/3 ML VIAL SC PRN (16:51)
[2018-12-25] MEDS: traZODone HCl 50 MG TAB PO PRN (21:33)
[2018-12-26 08:49] VITALS: BP 98/59; TEMP 96.3
[2018-12-26] MEDS: Saccharomyces boulardii 250 MG CAP PO SCH (08:53)
[2018-12-26] MEDS: Sacubitril 24.5 MG/Valsartan 25.5 MG TABLET PO SCH (08:53)
[2018-12-26] MEDS: Torsemide 20 MG TAB PO SCH (08:54)
[2018-12-26] MEDS: FLUoxetine HCl 20 MG CAP PO SCH (08:54)
[2018-12-26] MEDS: Lantus 1000 UNITS/10 ML VIAL SC SCH (08:54)
[2018-12-26] MEDS: Clopidogrel Bisulfate 75 MG TAB PO SCH (08:54)
[2018-12-26] MEDS: Gabapentin 400 MG CAP PO SCH ×2 (08:54→15:34)
[2018-12-26] MEDS: Atorvastatin Calcium 10 MG TAB PO SCH (08:54)
[2018-12-26] MEDS: Clotrimazole 1% Cream 15 GM TUBE TOP SCH (08:55)
[2018-12-26] MEDS: Triple Antibiotic Oint 1 GM Packet TOP SCH (08:55)
[2018-12-26] MEDS: HYDROcodone/Acetaminophen 10/325 mg Tablet PO PRN (10:33)
[2018-12-26] MEDS: HumaLOG 300 UNITS/3 ML VIAL SC PRN (12:06)
--- NOTE | 2018-12-27 14:33 | DIS ---
DATE OF ADMISSION: 11/16/2018 DATE OF DISCHARGE: 12/26/2018 PRIMARY DIAGNOSIS: Osteomyelitis of the right foot. SECONDARY DIAGNOSES: 1. Severe peripheral vascular disease. 2. Ischemic cardiomyopathy. 3. Generalized deconditioning. 4. Chronic obstructive pulmonary disease with continued tobacco abuse. 5. Uncontrolled type 2 diabetes mellitus. 6. Chronic kidney disease with baseline creatinine of 1.3 to 1.4. 7. Coronary artery disease. 8. Anemia of chronic disease. 9. Depression and anxiety. 10. Insomnia. 11. Bilateral carotid artery stenosis. HOSPITAL COURSE: This is a 53-year-old female with history of multiple medical problems that was admitted on 11/16/2018, after multiple hospitalizations for complications related to right foot osteomyelitis. The patient has had an ongoing wound with poor healing since the onset. She has had multiple revascularizations from Dr. Jimenez, as well as debridements from Dr. Zuñiga. Since this most recent admission, she has done relatively well without further complications. She has been following up with Dr. Zuñiga every other week for continued in office debridements as well as wound care recommendations, and has been following closely with her tracer clerk, Dr. Jimenez, regarding her ongoing complications with her severe peripheral vascular disease. The patient has been getting daily wound dressing changes from the Wound Care team here. She is no longer on the wound VAC and has been having continued slow improvement to the wound over her base of her right fifth digit. She has been participating with physical therapy and occupational therapy and working on her mobility given her somewhat limited weightbearing to the right foot. The patient has completed a full course of meropenem and vancomycin per Dr. Mendes' recommendations on 12/21/2018. Per Dr. Mendes, she was not recommended to continue on any further antibiotics. By day of discharge, the patient is alternating between a wheelchair and a walker for ambulation while wearing a boot to the right foot. She has had Home Health Care arranged for planned wound care dressings and has a family member who will assist in her transportation to her followup appointments. DISCHARGE MEDICATIONS: 1. Tylenol 650 mg every 4 hours as needed. 2. Atorvastatin 80 mg once daily. 3. Fluoxetine 40 mg once daily. 4. Plavix 75 mg once daily. 5. Gabapentin 400 mg three times daily. 6. Lantus 15 units twice daily. 7. Metolazone 5 mg once weekly. 8. Entresto 24 mg-26 mg tablet one tablet twice daily. 9. Torsemide 40 mg once daily. 10. Trazodone 100 mg once nightly. 11. Triple antibiotic ointment to be applied with wound dressing changes once daily. 12. Hydrocodone 10/325 mg one tab every 4 hours as needed. # 60 tablets prescribed. No refills. 13. Flexeril 5 mg every 12 hours as needed. DISPOSITION: The patient is returning home to independent living with Home Health Care assistance. DIET UPON DISCHARGE: She will resume a diabetic diet. ACTIVITY UPON DISCHARGE: She has somewhat limited weightbearing to the right lower extremity, but otherwise is to resume regular activity level. FOLLOWUP: She will follow up in the clinic with me in 1 to 2 weeks as well as with her scheduled appointments with her tracer clerk, general surgeon and other specialists. Job ID: [id number] MTDD
== END 2018-12-26 17:53 | disposition home health service (06) | DRG 561 ==
LOC: MADMS 18:17
PROVIDERS: ADMIT Family Medicine; ATTEND Family Medicine
DX: Z47.81 Encounter for orthopedic aftercare following surgical amputation (principal); I12.9 Hypertensive chronic kidney disease with stage 1 through stage 4 chronic kidney disease, or unspecified chronic kidney disease; N18.9 Chronic kidney disease, unspecified; E11.51 Type 2 diabetes mellitus with diabetic peripheral angiopathy without gangrene; E11.22 Type 2 diabetes mellitus with diabetic chronic kidney disease; J44.9 Chronic obstructive pulmonary disease, unspecified; F32.9 Major depressive disorder, single episode, unspecified; F41.9 Anxiety disorder, unspecified; G47.00 Insomnia, unspecified; E78.5 Hyperlipidemia, unspecified; I25.5 Ischemic cardiomyopathy; I25.10 Atherosclerotic heart disease of native coronary artery without angina pectoris; Z95.1 Presence of aortocoronary bypass graft; Z90.89 Acquired absence of other organs; Z89.422 Acquired absence of other left toe(s); Z89.421 Acquired absence of other right toe(s); Z87.891 Personal history of nicotine dependence; Z79.4 Long term (current) use of insulin; Z79.899 Other long term (current) drug therapy
CPT/HCPCS: 36415; 36416; 80053; 80202; 81001; 85025; 85652; 86140; 97602; A4216; J1815; J2185; J2997; J3370; J7050

== ENCOUNTER 2018-12-29 12:29 | Outpatient (CLI) | payer MEDICARE | END 2018-12-29 12:30 | disposition home or self-care (01) | LOC: MADLAB 12:29 | PROVIDERS: ATTEND Internal Medicine Cardiovascular Disease | DX: S81.802A Unspecified open wound, left lower leg, initial encounter (principal); L08.9 Local infection of the skin and subcutaneous tissue, unspecified | CPT/HCPCS: 87040 ==

== ENCOUNTER 2019-10-20 12:03 | Emergency (ER) | payer MEDICARE ==
[2019-10-20] MEDS ORDERED: Acetaminophen/Codeine 30-300mg Tablet ONE (12:28)
--- NOTE | 2019-10-20 13:29 | CT ---
EXAM: CT Pelvis WO Con PROVIDED CLINICAL HISTORY: Injury after a fall 2 days ago. Bilateral hip pain. COMPARISON: CT abdomen and pelvis on 07/15/2018. FINDINGS: Degenerative changes are seen in the visualized lower lumbar spine and involving each sacroiliac join t. No fracture is visualized. There is no evidence of a hip dislocation. Vascular calcifications are seen in the distal abdominal aorta and involving the iliac arteries. A va scular stent is now seen in the right distal common iliac artery and extending into the right external iliac artery. There are postsurgical changes again seen in each inguinal region with femoral popliteal bypass grafts partially imaged proximally and also seen on prior exam. There is colonic diverticulosis. The appendix is normal in caliber. There are increased density lesions seen in the adnexal regions bilaterally larger in size on the rig ht which measures 4.5 cm. A hypodense cystic appearing structure was seen on the prior exam. This could potentially represent a hemorrhagic cyst with smaller hemorrhagic cyst on the left. However, fu rther evaluation with pelvic ultrasound is suggested given patient's age. No free fluid is seen in the pelvis, and there is no evidence of a fluid collection. No obvious joint effusion is appreciated involving the hips bilaterally. IMPRESSION: 1. Increased density adnexal lesions larger in size on the right. Findings could be related to hemorr hagic cysts, but additional etiologies for the adnexal lesions cannot be excluded. A pelvic ultrasound is recommended on a nonemergent basis for further evaluation. 2. Prominent degenerative changes in the lower lumbar spine. 3. No evidence of a fracture.
--- NOTE | 2019-10-20 13:38 | CT ---
CT lumbar spine without contrast: HISTORY: Back Pain COMPARISON: No prior CT exams of the lumbar spine available FINDINGS: There is mild nonspecific bilateral perinephric stranding. Similar finding was seen on prior CT abdom en in 2018. There is no hydronephrosis. Vascular calcifications are seen in the abdominal aorta and involving the iliac arteries. Vascular stent is seen in right iliac arteries. There is trace grade 1 anterolisthesis of L4 on L5 likely due to facet degenerative changes at this l evel. The vertebral body heights are within normal limits, and there is no evidence of a fracture. L1-2: No significant central canal or neural foraminal narrowing is seen. L2-3: No significant central canal or neural foraminal narrowing is seen. L3-4: There is loss of intervertebral disc height. Vacuum phenomenon is seen in the intervertebral di scs. Facet degenerative changes are seen at this level. Minimal disc osteophyte complex is present resulting in slight effacement of ventral aspect of thecal sac. The neural foramina are patent L4-5: As noted above, there is trace grade 1 anterolisthesis at this level. There is broad-based disc osteophyte complex with prominent facet hypertrophic changes. Ligamentous thickening is present at this level. Findings result in moderate narrowing of the central spinal canal with moderate right and [id number] left-sided neural foraminal narrowing. L5-S1: There is loss of intervertebral disc height. There is a mild broad-based disc bulge. There is no central canal narrowing. Mild narrowing of each neural foramen is present. IMPRESSION: 1. Trace grade 1 retrolisthesis of L4 on L5. No fracture or additional level of subluxation is seen. Subluxation at this level is secondary to facet degenerative changes. 2. Prominent degenerative changes lower lumbar spine greatest at the L4-5 level where there is modera te central canal and bilateral neural foraminal narrowing with degree of neural foraminal narrowing greater on the right.
== END 2019-10-20 14:15 | disposition home or self-care (01) ==
LOC: MADERS 12:03
DX: S30.0XXA Contusion of lower back and pelvis, initial encounter (principal); S79.912A Unspecified injury of left hip, initial encounter; S79.911A Unspecified injury of right hip, initial encounter; M54.2 Cervicalgia; R06.02 Shortness of breath; J02.9 Acute pharyngitis, unspecified; R05 Cough; E11.9 Type 2 diabetes mellitus without complications; E78.5 Hyperlipidemia, unspecified; E78.00 Pure hypercholesterolemia, unspecified; I11.0 Hypertensive heart disease with heart failure; I50.9 Heart failure, unspecified; J44.9 Chronic obstructive pulmonary disease, unspecified; F41.9 Anxiety disorder, unspecified; F32.9 Major depressive disorder, single episode, unspecified; M16.0 Bilateral primary osteoarthritis of hip; Z87.891 Personal history of nicotine dependence; Z79.899 Other long term (current) drug therapy; Z79.02 Long term (current) use of antithrombotics/antiplatelets; W18.30XA Fall on same level, unspecified, initial encounter; Y92.009 Unspecified place in unspecified non-institutional (private) residence as the place of occurrence of the external cause
CPT/HCPCS: 72131; 72192; 99406

== ENCOUNTER 2020-02-19 12:18 | Emergency (ER) | payer MEDICARE ==
[~2020-02-19 12:18] MED LIST changes: -Iopamidol 370 76% 100 ML VIAL ONE; -Sodium Chloride 0.9% 1,000 ML BAG ONE; +Sodium Chloride Irrig Solution 250 ML BOT ONE
[2020-02-19] MEDS ORDERED: Amoxicillin/Potassium Clav 875 MG TAB ONE (12:59)
--- NOTE | 2020-02-19 13:21 | RAD ---
RIGHT TOES 3 VIEWS: HISTORY: Dog chewed on big toe. FINDINGS/IMPRESSION: A small bony portion of the tuft of the distal phalanx of the great toe is missing. POS: LAKESHA
== END 2020-02-19 14:10 | disposition home or self-care (01) ==
LOC: MADERS 12:18
DX: S91.25 Open bite of toe with damage to nail (principal); E11.9 Type 2 diabetes mellitus without complications; E78.5 Hyperlipidemia, unspecified; E78.00 Pure hypercholesterolemia, unspecified; J44.9 Chronic obstructive pulmonary disease, unspecified; I11.0 Hypertensive heart disease with heart failure; I50.9 Heart failure, unspecified; F41.9 Anxiety disorder, unspecified; F17.210 Nicotine dependence, cigarettes, uncomplicated; F32.9 Major depressive disorder, single episode, unspecified; Z79.899 Other long term (current) drug therapy; Z79.4 Long term (current) use of insulin; W54.0XXA Bitten by dog, initial encounter

== ENCOUNTER 2020-11-01 15:01 | Outpatient (CLI) | payer MEDICARE ==
--- NOTE | 2020-11-01 15:27 | RAD ---
Exam:3 views left foot HISTORY: Foot ulcer COMPARISON: None FINDINGS: Amputation of the fifth digit at the midportion of the metatarsal. There is irregularity an d ulceration involving the third and fourth metatarsal head. Remote injury with callus formation the distal second metatarsal. Lisfranc alignment is maintained. Soft tissue swelling with ulceration on the plantar aspect of the left forefoot IMPRESSION: 1. Probable cellulitis along the plantar aspect of the left forefoot. 2. Erosion and irregularity involving the third and fourth metatarsal heads. Correlate for osteomyeli tis
--- NOTE | 2020-11-01 16:11 | RAD ---
PA AND LATERAL VIEWS OF THE CHEST: 11/01/20 HISTORY: Bronchitis. FINDINGS: Comparison is made with the exam of 04/14/18. There has been interval placement of a left sided pacemaker device. Changes of median sternotomy agai n seen. There is continued elevation of the right hemidiaphragm. The heart size is normal. Calcified granuloma in the left lower lung is again seen. No lobar consolidation, pneumothoraces, or pleural ef fusions are identified. There are degenerative changes in the spine. IMPRESSION: No acute process. POS: OFF
== END 2020-11-01 15:02 | disposition home or self-care (01) ==
LOC: MADRAD 15:01
PROVIDERS: ATTEND Family Medicine
DX: L97.529 Non-pressure chronic ulcer of other part of left foot with unspecified severity (principal); J44.0 Chronic obstructive pulmonary disease with (acute) lower respiratory infection; J20.9 Acute bronchitis, unspecified; M85.872 Other specified disorders of bone density and structure, left ankle and foot; R93.7 Abnormal findings on diagnostic imaging of other parts of musculoskeletal system
CPT/HCPCS: 71046

== ENCOUNTER 2021-01-27 13:09 | Outpatient (CLI) | payer MEDICARE | END 2021-01-27 13:10 | disposition home or self-care (01) | LOC: MADRAD 13:09 | PROVIDERS: ATTEND Family Medicine | DX: M54.5 Low back pain (principal); M47.816 Spondylosis without myelopathy or radiculopathy, lumbar region | CPT/HCPCS: 72100 ==

== ENCOUNTER 2021-08-15 10:02 | Outpatient (CLI) | payer MEDICARE ==
[2021-08-15 11:38] LABS: Albumin 3.4 g/dL (3.5-5.0); Anion Gap 16 mmol/L (10-20); BUN (Urea Nitrogen) 30 mg/dL (9.8-20.1); Calc. Creatinine Clearance 0 mL/min (70-130); Calcium 8.7 mg/dL (7.8-10.44); Carbon Dioxide 27 mmol/L (22-29); Chloride 99 mmol/L (98-107); Glucose 147 mg/dL (70-105); Magnesium 1.9 mg/dL (1.6-2.6); Phosphorus 4.5 mg/dL (2.3-4.7); Sodium 138 mmol/L (136-145)
== END 2021-08-15 10:03 | disposition home or self-care (01) ==
LOC: MADLAB 10:02
PROVIDERS: ATTEND Family Medicine
DX: M54.50 Low back pain, unspecified (principal); M54.2 Cervicalgia; I13.0 Hypertensive heart and chronic kidney disease with heart failure and stage 1 through stage 4 chronic kidney disease, or unspecified chronic kidney disease; E11.22 Type 2 diabetes mellitus with diabetic chronic kidney disease; I50.9 Heart failure, unspecified; N18.30 Chronic kidney disease, stage 3 unspecified; R80.9 Proteinuria, unspecified; E55.9 Vitamin D deficiency, unspecified; M47.812 Spondylosis without myelopathy or radiculopathy, cervical region; M47.816 Spondylosis without myelopathy or radiculopathy, lumbar region; M43.16 Spondylolisthesis, lumbar region
CPT/HCPCS: 36415; 72040; 72100; 80048; 82040; 83735; 83970; 84100

== ENCOUNTER 2021-11-11 10:16 | Outpatient (CLI) | payer MEDICARE ==
[2021-11-11 10:43] LABS: Bilirubin Negative (Negative); Blood, Urine Small (Negative); Glucose, Urine (Dipstick) 500 mg/dL (Negative); Ketone, Urine Negative (Negative); Leukocyte Negative (Negative); Nitrite Negative (Negative); Protein, Urine (Dipstick) > or equal to 300 mg/dL (Neg-Trace); Urobilinogen 0.2 mg/dL (Less than 2)
[2021-11-11 10:50] LABS: Prothrombin Time 12.9 sec (12.0-14.7)
[2021-11-11 10:51] LABS: PTT 30.7 sec (22.9-36.1)
[2021-11-11 10:58] LABS: Clarity Hazy (Clear)
[2021-11-11 10:59] LABS: ALT (SGPT) 8 U/L (8-55); AST (SGOT) 11 U/L (5-34); Albumin 3.4 g/dL (3.5-5.0); Alkaline Phosphatase 135 U/L (40-110); Anion Gap 14 mmol/L (10-20); BUN (Urea Nitrogen) 31 mg/dL (9.8-20.1); Bacteria/HPF 1+ HPF (None Seen); Bilirubin, Total 0.2 mg/dL (0.2-1.2); Calc. Creatinine Clearance 0 mL/min (70-130); Calcium 8.9 mg/dL (7.8-10.44); Carbon Dioxide 30 mmol/L (22-29); Chloride 97 mmol/L (98-107); Globulin 3.5 g/dL (2.4-3.5); Glucose 293 mg/dL (70-105); Potassium 3.7 mmol/L (3.5-5.1); Protein, Total 6.9 g/dL (6.0-8.3); Sodium 137 mmol/L (136-145)
[2021-11-11 11:29] LABS: #Basophils 0.1 thou/uL (0.0-0.2); #Eosinphils 0.1 thou/uL (0.0-0.7); #Monocytes 0.7 thou/uL (0.11-0.59); #Neutrophils 8.8 thou/uL (1.40-6.50); %Basophils 0.7 % (0.0-1.0); %Eosinophils 0.6 % (0.0-10.0); %Lymphocytes 17.6 % (21.0-51.0); %Monocytes 5.8 % (0.0-10.0); %Neutrophils 75.3 % (42.0-75.0); Hemoglobin 12.5 g/dL (12.0-16.0); Mean Corpuscular HGB CONC 32.7 g/dL (32.0-36.0); Mean Corpuscular Hemoglobin 30.9 pg (27.0-31.0); Mean Corpuscular Volume 94.6 fL (78.0-98.0); Mean Platelet Volume 7.3 fL (7.4-10.4); Platelet Count 301 thou/uL (130-400); RBC Distribution Width 11.6 % (11.5-14.5); Red Blood Cell (RBC) Count 4.04 mill/uL (4.20-5.40); White Blood Cell (WBC) Count 11.6 thou/uL (4.8-10.8)
[2021-11-11 16:24] LABS: Hemoglobin A1c 10.1 % (4.0-6.0)
== END 2021-11-11 10:17 | disposition home or self-care (01) ==
LOC: MADLAB 10:16
PROVIDERS: ATTEND Family Medicine
DX: Z01.818 Encounter for other preprocedural examination (principal); Z11.59 Encounter for screening for other viral diseases
CPT/HCPCS: 36415; 71046; 80053; 81001; 83036; 85025; 85610; 85730; 87086

== ENCOUNTER 2021-11-24 12:00 | Inpatient (IN) | payer OTHER ==
[2021-11-24] MEDS ORDERED: traMADol HCl 50 MG TAB PO PRN (13:44)
[2021-11-24] MEDS ORDERED: Dextrose 50% Abboject 50 ML SYRINGE SLOW IVP PRN (14:07)
[2021-11-24] MEDS ORDERED: Insulin Regular 300 UNITS/3 ML VIAL SC PRN (14:07)
[2021-11-24] MEDS: HYDROcodone/Acetaminophen 10/325 mg Tablet PO PRN (15:49)
[2021-11-24] MEDS: HumaLOG 300 UNITS/3 ML VIAL SC PRN (16:55)
[2021-11-24] MEDS ORDERED: HumaLOG 300 UNITS/3 ML VIAL SC PRN (17:30)
[2021-11-24] MEDS ORDERED: Dextrose 5% in Water 1,000 ML IV PRN (17:45)
[2021-11-24] MEDS: Gabapentin 400 MG CAP PO SCH (20:39)
[2021-11-24] MEDS: Atorvastatin Calcium 40 MG TAB PO SCH (20:40)
[2021-11-24] MEDS: Carvedilol 12.5 MG TAB PO SCH (20:41)
[2021-11-24] MEDS: Amoxicillin/Potassium Clav 875 MG TAB PO SCH (20:41)
[2021-11-24] MEDS: Lantus 1000 UNITS/10 ML VIAL SC SCH (20:43)
[2021-11-25 03:09] LABS: SARS-CoV-2 PCR by NAA Not Detected (NotDetected)
[2021-11-25] MEDS: HYDROcodone/Acetaminophen 10/325 mg Tablet PO PRN ×3 (05:14→17:39)
[2021-11-25 05:34] LABS: #Basophils 0.1 thou/uL (0.0-0.2); #Eosinphils 0.1 thou/uL (0.0-0.7); #Lymphocytes 1.7 thou/uL (1.20-3.40); #Monocytes 0.9 thou/uL (0.11-0.59); #Neutrophils 6.7 thou/uL (1.40-6.50); %Basophils 1.2 % (0.0-1.0); %Eosinophils 1.5 % (0.0-10.0); %Lymphocytes 17.6 % (21.0-51.0); %Monocytes 9.6 % (0.0-10.0); %Neutrophils 70.1 % (42.0-75.0); Hemoglobin 8.2 g/dL (12.0-16.0); Mean Corpuscular HGB CONC 32.8 g/dL (32.0-36.0); Mean Corpuscular Hemoglobin 30.9 pg (27.0-31.0); Mean Corpuscular Volume 94.1 fL (78.0-98.0); Mean Platelet Volume 6.5 fL (7.4-10.4); Platelet Count 315 thou/uL (130-400); Red Blood Cell (RBC) Count 2.66 mill/uL (4.20-5.40); White Blood Cell (WBC) Count 9.5 thou/uL (4.8-10.8)
[2021-11-25 06:29] LABS: Anion Gap 14 mmol/L (10-20); BUN (Urea Nitrogen) 50 mg/dL (9.8-20.1); Calc. Creatinine Clearance 41 mL/min (70-130); Calcium 9.4 mg/dL (7.8-10.44); Carbon Dioxide 27 mmol/L (22-29); Chloride 103 mmol/L (98-107); Glucose 117 mg/dL (70-105); Potassium 4.3 mmol/L (3.5-5.1); Sodium 140 mmol/L (136-145)
[2021-11-25] MEDS: Albuterol 200 PUFF (6.7GM INHALER) INH SCH (08:49)
[2021-11-25] MEDS: FLUoxetine HCl 20 MG CAP PO SCH (08:50)
[2021-11-25] MEDS: Amoxicillin/Potassium Clav 875 MG TAB PO SCH ×2 (08:51→20:35)
[2021-11-25] MEDS: Carvedilol 12.5 MG TAB PO SCH ×2 (08:51→20:35)
[2021-11-25] MEDS: Clopidogrel Bisulfate 75 MG TAB PO SCH (08:51)
[2021-11-25] MEDS: Enoxaparin Sodium 30 MG/0.3 ML SYRINGE SC SCH (08:51)
[2021-11-25] MEDS: Ezetimibe 10 MG TAB PO SCH (08:51)
[2021-11-25] MEDS: Gabapentin 400 MG CAP PO SCH ×2 (08:54→20:37)
[2021-11-25] MEDS: HumaLOG 300 UNITS/3 ML VIAL SC PRN ×2 (11:41→16:38)
[2021-11-25] MEDS: Lantus 1000 UNITS/10 ML VIAL SC SCH (20:34)
[2021-11-25] MEDS: Atorvastatin Calcium 40 MG TAB PO SCH (20:35)
[2021-11-26] MEDS: HYDROcodone/Acetaminophen 10/325 mg Tablet PO PRN ×3 (00:17→13:34)
[2021-11-26] MEDS: HumaLOG 300 UNITS/3 ML VIAL SC PRN ×3 (08:12→17:13)
[2021-11-26] MEDS: Albuterol 200 PUFF (6.7GM INHALER) INH SCH (08:14)
[2021-11-26] MEDS: Enoxaparin Sodium 30 MG/0.3 ML SYRINGE SC SCH (08:15)
[2021-11-26] MEDS: Gabapentin 400 MG CAP PO SCH ×2 (08:16→20:43)
[2021-11-26] MEDS: Amoxicillin/Potassium Clav 875 MG TAB PO SCH ×2 (08:17→20:43)
[2021-11-26] MEDS: Clopidogrel Bisulfate 75 MG TAB PO SCH (08:18)
[2021-11-26] MEDS: FLUoxetine HCl 20 MG CAP PO SCH (08:18)
[2021-11-26] MEDS: Carvedilol 12.5 MG TAB PO SCH ×2 (08:18→20:47)
[2021-11-26] MEDS: Ezetimibe 10 MG TAB PO SCH (08:18)
[2021-11-26] MEDS: Lantiseptic Ointment 130 GM JAR TOP PRN (08:33)
[2021-11-26] MEDS: Lantus 1000 UNITS/10 ML VIAL SC SCH (20:38)
[2021-11-26] MEDS: Atorvastatin Calcium 40 MG TAB PO SCH (20:43)
[2021-11-26 22:09] VITALS: BMI 35.7
[2021-11-27] MEDS: HYDROcodone/Acetaminophen 10/325 mg Tablet PO PRN ×3 (03:04→21:16)
[2021-11-27] MEDS: Albuterol 200 PUFF (6.7GM INHALER) INH SCH (08:08)
[2021-11-27] MEDS: Carvedilol 12.5 MG TAB PO SCH ×2 (08:09→21:15)
[2021-11-27] MEDS: Amoxicillin/Potassium Clav 875 MG TAB PO SCH ×2 (08:09→21:15)
[2021-11-27] MEDS: Clopidogrel Bisulfate 75 MG TAB PO SCH (08:10)
[2021-11-27] MEDS: Ezetimibe 10 MG TAB PO SCH (08:10)
[2021-11-27] MEDS: Enoxaparin Sodium 30 MG/0.3 ML SYRINGE SC SCH (08:10)
[2021-11-27] MEDS: FLUoxetine HCl 20 MG CAP PO SCH (08:13)
[2021-11-27] MEDS: Gabapentin 400 MG CAP PO SCH ×2 (08:14→21:15)
[2021-11-27] MEDS: HumaLOG 300 UNITS/3 ML VIAL SC PRN ×3 (08:15→17:50)
[2021-11-27] MEDS: Lantus 1000 UNITS/10 ML VIAL SC SCH (21:13)
[2021-11-27] MEDS: Atorvastatin Calcium 40 MG TAB PO SCH (21:15)
[2021-11-28] MEDS: Carvedilol 12.5 MG TAB PO SCH ×2 (08:11→21:03)
[2021-11-28] MEDS: FLUoxetine HCl 20 MG CAP PO SCH (08:11)
[2021-11-28] MEDS: Amoxicillin/Potassium Clav 875 MG TAB PO SCH ×2 (08:11→21:03)
[2021-11-28] MEDS: Gabapentin 400 MG CAP PO SCH ×2 (08:12→21:04)
[2021-11-28] MEDS: Clopidogrel Bisulfate 75 MG TAB PO SCH (08:12)
[2021-11-28] MEDS: Enoxaparin Sodium 30 MG/0.3 ML SYRINGE SC SCH (08:12)
[2021-11-28] MEDS: Ezetimibe 10 MG TAB PO SCH (08:12)
[2021-11-28] MEDS: HumaLOG 300 UNITS/3 ML VIAL SC PRN ×3 (08:13→16:49)
[2021-11-28] MEDS: Albuterol 200 PUFF (6.7GM INHALER) INH SCH (08:13)
[2021-11-28] MEDS ORDERED: Metolazone 5 MG TAB PO SCH (09:00)
[2021-11-28] MEDS: HYDROcodone/Acetaminophen 10/325 mg Tablet PO PRN ×2 (11:08→21:10)
[2021-11-28] MEDS: Atorvastatin Calcium 40 MG TAB PO SCH (21:03)
[2021-11-28] MEDS: Lantiseptic Ointment 130 GM JAR TOP PRN (21:04)
[2021-11-28] MEDS: Lantus 1000 UNITS/10 ML VIAL SC SCH (21:12)
[2021-11-29] MEDS: Albuterol 200 PUFF (6.7GM INHALER) INH SCH (08:25)
[2021-11-29] MEDS: Enoxaparin Sodium 30 MG/0.3 ML SYRINGE SC SCH (08:26)
[2021-11-29] MEDS: Ezetimibe 10 MG TAB PO SCH (08:26)
[2021-11-29] MEDS: Carvedilol 12.5 MG TAB PO SCH ×2 (08:26→21:23)
[2021-11-29] MEDS: Clopidogrel Bisulfate 75 MG TAB PO SCH (08:27)
[2021-11-29] MEDS: Gabapentin 400 MG CAP PO SCH ×2 (08:28→21:24)
[2021-11-29] MEDS: FLUoxetine HCl 20 MG CAP PO SCH (08:28)
[2021-11-29] MEDS: HumaLOG 300 UNITS/3 ML VIAL SC PRN ×2 (12:04→17:01)
[2021-11-29] MEDS: HYDROcodone/Acetaminophen 10/325 mg Tablet PO PRN ×2 (15:59→21:24)
[2021-11-29] MEDS: Ferrous Sulfate 325 MG TAB PO SCH (16:00)
[2021-11-29] MEDS: Atorvastatin Calcium 40 MG TAB PO SCH (21:23)
[2021-11-29] MEDS: Lantus 1000 UNITS/10 ML VIAL SC SCH (21:23)
[2021-11-30] MEDS: HYDROcodone/Acetaminophen 10/325 mg Tablet PO PRN ×2 (06:19→21:07)
[2021-11-30] MEDS: Albuterol 200 PUFF (6.7GM INHALER) INH SCH (08:43)
[2021-11-30] MEDS: Ferrous Sulfate 325 MG TAB PO SCH ×2 (08:43→16:56)
[2021-11-30] MEDS: FLUoxetine HCl 20 MG CAP PO SCH (08:44)
[2021-11-30] MEDS: Clopidogrel Bisulfate 75 MG TAB PO SCH (08:45)
[2021-11-30] MEDS: Ezetimibe 10 MG TAB PO SCH (08:45)
[2021-11-30] MEDS: Carvedilol 12.5 MG TAB PO SCH ×2 (08:45→21:08)
[2021-11-30] MEDS: Gabapentin 400 MG CAP PO SCH ×2 (08:45→21:08)
[2021-11-30 09:03] LABS: #Basophils 0.1 thou/uL (0.0-0.2); #Eosinphils 0.1 thou/uL (0.0-0.7); #Lymphocytes 0.8 thou/uL (1.20-3.40); #Monocytes 0.9 thou/uL (0.11-0.59); #Neutrophils 10.6 thou/uL (1.40-6.50); %Eosinophils 0.9 % (0.0-10.0); %Lymphocytes 6.7 % (21.0-51.0); %Monocytes 7.4 % (0.0-10.0); Hemoglobin 7.3 g/dL (12.0-16.0); Mean Corpuscular Hemoglobin 31.7 pg (27.0-31.0); Mean Corpuscular Volume 93.2 fL (78.0-98.0); Mean Platelet Volume 7.3 fL (7.4-10.4); Platelet Count 376 thou/uL (130-400); RBC Distribution Width 11.7 % (11.5-14.5); Red Blood Cell (RBC) Count 2.29 mill/uL (4.20-5.40); White Blood Cell (WBC) Count 12.6 thou/uL (4.8-10.8)
[2021-11-30 09:09] LABS: Prothrombin Time 12.9 sec (12.0-14.7)
[2021-11-30] MEDS: HumaLOG 300 UNITS/3 ML VIAL SC PRN (16:57)
[2021-11-30] MEDS: Lantus 1000 UNITS/10 ML VIAL SC SCH (21:07)
[2021-11-30] MEDS: Atorvastatin Calcium 40 MG TAB PO SCH (21:08)
[2021-12-01 08:42] LABS: #Eosinphils 0.1 thou/uL (0.0-0.7); #Lymphocytes 1.1 thou/uL (1.20-3.40); #Neutrophils 7.6 thou/uL (1.40-6.50); %Basophils 0.5 % (0.0-1.0); %Eosinophils 1.1 % (0.0-10.0); %Lymphocytes 11.3 % (21.0-51.0); %Monocytes 9.8 % (0.0-10.0); %Neutrophils 77.4 % (42.0-75.0); Hemoglobin 6.3 g/dL (12.0-16.0); Mean Corpuscular Hemoglobin 30.9 pg (27.0-31.0); Mean Corpuscular Volume 93.8 fL (78.0-98.0); Mean Platelet Volume 6.2 fL (7.4-10.4); Platelet Count 344 thou/uL (130-400); RBC Distribution Width 11.7 % (11.5-14.5); Red Blood Cell (RBC) Count 2.05 mill/uL (4.20-5.40); White Blood Cell (WBC) Count 9.9 thou/uL (4.8-10.8)
[2021-12-01] MEDS: Albuterol 200 PUFF (6.7GM INHALER) INH SCH (09:17)
[2021-12-01] MEDS: Ezetimibe 10 MG TAB PO SCH (09:18)
[2021-12-01] MEDS: Carvedilol 12.5 MG TAB PO SCH (09:18)
[2021-12-01] MEDS: Ferrous Sulfate 325 MG TAB PO SCH ×2 (09:18→17:27)
[2021-12-01] MEDS: Gabapentin 400 MG CAP PO SCH (09:18)
[2021-12-01] MEDS: FLUoxetine HCl 20 MG CAP PO SCH (09:18)
[2021-12-01] MEDS: HumaLOG 300 UNITS/3 ML VIAL SC PRN ×2 (12:17→17:27)
[2021-12-01] MEDS: HYDROcodone/Acetaminophen 10/325 mg Tablet PO PRN (14:00)
[2021-12-01 18:22] LABS: SARS-CoV-2 PCR by NAA Not Detected (NotDetected)
[2021-12-01 18:40] LABS: Bilirubin Negative (Negative); Blood, Urine Moderate (Negative); Clarity Hazy (Clear); Glucose, Urine (Dipstick) Negative (Negative); Ketone, Urine Negative (Negative); Leukocyte Trace (Negative); Nitrite Negative (Negative); Protein, Urine (Dipstick) 100 mg/dL (Neg-Trace); Specific Gravity, Urine 1.015 (1.005-1.030); Urobilinogen 0.2 mg/dL (Less than 2)
[2021-12-01 18:42] LABS: Bacteria/HPF Rare-Few HPF (None Seen); Yeast-Budding 3+ HPF (None Seen)
[2021-12-01] MEDS: Gabapentin 300 MG CAP PO SCH (20:20)
[2021-12-01] MEDS: Atorvastatin Calcium 40 MG TAB PO SCH (20:21)
[2021-12-01] MEDS: Lantus 1000 UNITS/10 ML VIAL SC SCH (20:21)
[2021-12-01 22:16] VITALS: TEMP 97.9
[2021-12-02 03:16] LABS: #Basophils 0.1 thou/uL (0.0-0.2); #Eosinphils 0.1 thou/uL (0.0-0.7); #Lymphocytes 0.8 thou/uL (1.20-3.40); #Monocytes 1.2 thou/uL (0.11-0.59); %Basophils 0.4 % (0.0-1.0); %Eosinophils 0.4 % (0.0-10.0); %Lymphocytes 5.8 % (21.0-51.0); %Monocytes 8.2 % (0.0-10.0); %Neutrophils 85.3 % (42.0-75.0); Hemoglobin 9.2 g/dL (12.0-16.0); Mean Corpuscular HGB CONC 34.1 g/dL (32.0-36.0); Mean Corpuscular Hemoglobin 30.8 pg (27.0-31.0); Mean Corpuscular Volume 90.5 fL (78.0-98.0); Mean Platelet Volume 6.6 fL (7.4-10.4); Platelet Count 341 thou/uL (130-400); RBC Distribution Width 12.9 % (11.5-14.5); Red Blood Cell (RBC) Count 2.98 mill/uL (4.20-5.40)
[2021-12-02 03:32] LABS: ALT (SGPT) 8 U/L (8-55); AST (SGOT) 14 U/L (5-34); Alkaline Phosphatase 96 U/L (40-110); Anion Gap 17 mmol/L (10-20); BUN (Urea Nitrogen) 56 mg/dL (9.8-20.1); Bilirubin, Total 0.4 mg/dL (0.2-1.2); Calc. Creatinine Clearance 36 mL/min (70-130); Carbon Dioxide 21 mmol/L (22-29); Chloride 102 mmol/L (98-107); Globulin 3.6 g/dL (2.4-3.5); Glucose 124 mg/dL (70-105); Potassium 5.1 mmol/L (3.5-5.1); Protein, Total 6.6 g/dL (6.0-8.3); Sodium 135 mmol/L (136-145)
[2021-12-02 07:54] VITALS: BP 175/72
[2021-12-02] MEDS ORDERED: Furosemide 40 MG/4 ML VIAL ONE ×2 (08:27→08:38)
[2021-12-02] MEDS ORDERED: Furosemide 40 MG/4 ML VIAL SLOW IVP SCH (08:30)
[2021-12-02] MEDS: Albuterol 200 PUFF (6.7GM INHALER) INH SCH (08:30)
[2021-12-02] MEDS ORDERED: Cefepime 2 GM in Sodium Chloride 0.9% 100 ML IVPB SCH (08:30)
[2021-12-02] MEDS: FLUoxetine HCl 20 MG CAP PO SCH (08:49)
[2021-12-02] MEDS: Gabapentin 300 MG CAP PO SCH (08:49)
[2021-12-02] MEDS: Ezetimibe 10 MG TAB PO SCH (08:49)
[2021-12-02] MEDS: Ferrous Sulfate 325 MG TAB PO SCH (08:49)
[2021-12-02] MEDS ORDERED: Vancomycin HCl 750 MG in Sodium Chloride 0.9% 250 ML 250 ML IVPB SCH ×2 (09:00→10:00)
[2021-12-03] MEDS ORDERED: Vancomycin HCl 750 MG in Sodium Chloride 0.9% 250 ML 250 ML IVPB SCH (09:00)
== END 2021-12-02 08:37 | disposition short-term general hospital (02) | DRG 947 ==
LOC: MADMS 12:00
PROVIDERS: ADMIT Family Medicine; ATTEND Family Medicine
DX: R53.81 Other malaise (principal); J18.9 Pneumonia, unspecified organism; D62 Acute posthemorrhagic anemia; I50.22 Chronic systolic (congestive) heart failure; I13.0 Hypertensive heart and chronic kidney disease with heart failure and stage 1 through stage 4 chronic kidney disease, or unspecified chronic kidney disease; Z20.822 Contact with and (suspected) exposure to COVID-19; G89.18 Other acute postprocedural pain; R09.02 Hypoxemia; E11.22 Type 2 diabetes mellitus with diabetic chronic kidney disease; N18.30 Chronic kidney disease, stage 3 unspecified; I25.10 Atherosclerotic heart disease of native coronary artery without angina pectoris; J42 Unspecified chronic bronchitis; E78.5 Hyperlipidemia, unspecified; E11.51 Type 2 diabetes mellitus with diabetic peripheral angiopathy without gangrene; Z74.09 Other reduced mobility; R25.1 Tremor, unspecified; R26.81 Unsteadiness on feet; Z98.890 Other specified postprocedural states; Z78.9 Other specified health status; Z79.02 Long term (current) use of antithrombotics/antiplatelets; Z79.4 Long term (current) use of insulin; Z79.899 Other long term (current) drug therapy; Z95.1 Presence of aortocoronary bypass graft; Z95.810 Presence of automatic (implantable) cardiac defibrillator; Z89.422 Acquired absence of other left toe(s)
CPT/HCPCS: 36416; 36430; 71045; 72100; 80048; 80053; 81001; 84484; 85025; 85610; 86850; 86900; 86901; 87040; 87086; 93005; 93010; 36415-59; J1650; J1815; J1940; P9016; U0003; U0005

== ENCOUNTER 2021-12-02 08:37 | Emergency (ER) | payer MEDICARE ==
[2021-12-02] MEDS ORDERED: Furosemide 40 MG/4 ML VIAL ONE ×2 (08:50→09:23)
[2021-12-02 09:08] LABS: #Basophils 0.1 thou/uL (0.0-0.2); #Eosinphils 0.1 thou/uL (0.0-0.7); #Lymphocytes 1.2 thou/uL (1.20-3.40); #Monocytes 1.2 thou/uL (0.11-0.59); #Neutrophils 11.1 thou/uL (1.40-6.50); %Basophils 0.9 % (0.0-1.0); %Eosinophils 0.5 % (0.0-10.0); %Lymphocytes 8.6 % (21.0-51.0); %Monocytes 8.7 % (0.0-10.0); %Neutrophils 81.3 % (42.0-75.0); Hemoglobin 10.3 g/dL (12.0-16.0); Mean Corpuscular Hemoglobin 30.1 pg (27.0-31.0); Mean Corpuscular Volume 91.2 fL (78.0-98.0); Mean Platelet Volume 7.1 fL (7.4-10.4); Platelet Count 424 thou/uL (130-400); RBC Distribution Width 12.9 % (11.5-14.5); Red Blood Cell (RBC) Count 3.41 mill/uL (4.20-5.40); White Blood Cell (WBC) Count 13.7 thou/uL (4.8-10.8)
[2021-12-02 09:27] LABS: ALT (SGPT) 10 U/L (8-55); AST (SGOT) 18 U/L (5-34); Albumin 3.3 g/dL (3.5-5.0); Alkaline Phosphatase 112 U/L (40-110); Anion Gap 17 mmol/L (10-20); BUN (Urea Nitrogen) 53 mg/dL (9.8-20.1); Bilirubin, Total 0.3 mg/dL (0.2-1.2); Calc. Creatinine Clearance 0 mL/min (70-130); Calcium 9.4 mg/dL (7.8-10.44); Carbon Dioxide 22 mmol/L (22-29); Chloride 101 mmol/L (98-107); Globulin 4.1 g/dL (2.4-3.5); Glucose 160 mg/dL (70-105); Potassium 5.8 mmol/L (3.5-5.1); Protein, Total 7.4 g/dL (6.0-8.3); Sodium 134 mmol/L (136-145)
[2021-12-02 09:31] LABS: CRP (Inflammatory) 11.88 mg/dL (= or < 0.5)
== END 2021-12-02 09:40 | disposition short-term general hospital (02) ==
LOC: MADERS 08:37
DX: R06.03 Acute respiratory distress (principal); D64.9 Anemia, unspecified; I11.0 Hypertensive heart disease with heart failure; I50.9 Heart failure, unspecified; E11.9 Type 2 diabetes mellitus without complications; E78.5 Hyperlipidemia, unspecified; J44.9 Chronic obstructive pulmonary disease, unspecified; F17.210 Nicotine dependence, cigarettes, uncomplicated
CPT/HCPCS: 71045; 82550; 83605; 83880; 85379; 86140; 96374; 96376; J1940

== ENCOUNTER 2021-12-09 11:51 | Inpatient (IN) | payer MEDICARE ==
[2021-12-09 14:41] VITALS: BMI 33.7
[2021-12-09] MEDS ORDERED: Bisacodyl 10 MG SUPP PR PRN (17:23)
[2021-12-09] MEDS ORDERED: Torsemide 20 MG TAB PO PRN (17:23)
[2021-12-09] MEDS: Nystatin Powder 15 GM BOT TOP PRN (17:44)
[2021-12-09] MEDS: Gabapentin 400 MG CAP PO SCH (20:01)
[2021-12-09] MEDS: Artificial Tear Sol 15 ML BOT EA EYE SCH (20:02)
[2021-12-09] MEDS: Carvedilol 12.5 MG TAB PO SCH (20:02)
[2021-12-09] MEDS: hydrALAZINE 25 MG TAB PO SCH (20:02)
[2021-12-09] MEDS: Acetaminophen/Codeine 30-300mg Tablet PO PRN (20:13)
[2021-12-10 06:38] LABS: #Basophils 0.1 thou/uL (0.0-0.2); #Eosinphils 0.2 thou/uL (0.0-0.7); #Lymphocytes 1.6 thou/uL (1.20-3.40); #Monocytes 0.7 thou/uL (0.11-0.59); #Neutrophils 6.3 thou/uL (1.40-6.50); %Basophils 0.8 % (0.0-1.0); %Eosinophils 2.1 % (0.0-10.0); %Lymphocytes 18.2 % (21.0-51.0); %Neutrophils 70.9 % (42.0-75.0); Hemoglobin 9.2 g/dL (12.0-16.0); Mean Corpuscular HGB CONC 33.1 g/dL (32.0-36.0); Mean Corpuscular Hemoglobin 30.1 pg (27.0-31.0); Mean Corpuscular Volume 90.9 fL (78.0-98.0); Mean Platelet Volume 5.6 fL (7.4-10.4); Platelet Count 237 thou/uL (130-400); RBC Distribution Width 12.7 % (11.5-14.5); Red Blood Cell (RBC) Count 3.05 mill/uL (4.20-5.40); White Blood Cell (WBC) Count 8.9 thou/uL (4.8-10.8)
[2021-12-10 06:57] LABS: Anion Gap 15 mmol/L (10-20); BUN (Urea Nitrogen) 29 mg/dL (9.8-20.1); Calc. Creatinine Clearance 63 mL/min (70-130); Calcium 8.8 mg/dL (7.8-10.44); Carbon Dioxide 23 mmol/L (22-29); Chloride 105 mmol/L (98-107); Glucose 149 mg/dL (70-105); Sodium 139 mmol/L (136-145)
[2021-12-10] MEDS: Gabapentin 400 MG CAP PO SCH ×2 (08:15→20:16)
[2021-12-10] MEDS: hydrALAZINE 25 MG TAB PO SCH ×3 (08:16→20:16)
[2021-12-10] MEDS: Artificial Tear Sol 15 ML BOT EA EYE SCH ×2 (08:16→21:10)
[2021-12-10] MEDS: Clopidogrel Bisulfate 75 MG TAB PO SCH (08:16)
[2021-12-10] MEDS: Spironolactone 25 MG TAB PO SCH (08:16)
[2021-12-10] MEDS: Famotidine 20 MG TAB PO SCH (08:16)
[2021-12-10] MEDS: Atorvastatin Calcium 40 MG TAB PO SCH (08:16)
[2021-12-10] MEDS: FLUoxetine HCl 20 MG CAP PO SCH (08:16)
[2021-12-10] MEDS: Lantus 1000 UNITS/10 ML VIAL SC SCH (08:31)
[2021-12-10] MEDS: Carvedilol 12.5 MG TAB PO SCH ×2 (08:31→20:16)
[2021-12-10] MEDS: Nystatin Powder 15 GM BOT TOP PRN (09:57)
[2021-12-10] MEDS ORDERED: Dextrose 50% Abboject 50 ML SYRINGE SLOW IVP PRN (12:16)
[2021-12-10] MEDS: HumaLOG 300 UNITS/3 ML VIAL SC PRN ×3 (12:39→21:09)
[2021-12-10] MEDS: Acetaminophen/Codeine 30-300mg Tablet PO PRN (20:15)
[2021-12-11] MEDS: Artificial Tear Sol 15 ML BOT EA EYE SCH ×2 (08:45→20:37)
[2021-12-11] MEDS: Carvedilol 12.5 MG TAB PO SCH ×2 (08:46→20:33)
[2021-12-11] MEDS: Spironolactone 25 MG TAB PO SCH (08:46)
[2021-12-11] MEDS: hydrALAZINE 25 MG TAB PO SCH ×3 (08:46→20:33)
[2021-12-11] MEDS: Famotidine 20 MG TAB PO SCH (08:46)
[2021-12-11] MEDS: Clopidogrel Bisulfate 75 MG TAB PO SCH (08:46)
[2021-12-11] MEDS: Gabapentin 400 MG CAP PO SCH ×2 (08:47→20:33)
[2021-12-11] MEDS: FLUoxetine HCl 20 MG CAP PO SCH (08:47)
[2021-12-11] MEDS: Atorvastatin Calcium 40 MG TAB PO SCH (08:47)
[2021-12-11] MEDS: HumaLOG 300 UNITS/3 ML VIAL SC PRN ×3 (08:50→16:58)
[2021-12-11] MEDS: Lantus 1000 UNITS/10 ML VIAL SC SCH (08:50)
[2021-12-11] MEDS: Acetaminophen/Codeine 30-300mg Tablet PO PRN (19:54)
[2021-12-11] MEDS: Senokot S 8.6-50 MG TAB PO PRN (20:33)
[2021-12-11] MEDS: Nystatin Powder 15 GM BOT TOP PRN (21:53)
[2021-12-12] MEDS: Acetaminophen/Codeine 30-300mg Tablet PO PRN ×2 (05:24→20:44)
[2021-12-12] MEDS: Artificial Tear Sol 15 ML BOT EA EYE SCH ×2 (09:20→20:51)
[2021-12-12] MEDS: Atorvastatin Calcium 40 MG TAB PO SCH (09:21)
[2021-12-12] MEDS: Carvedilol 12.5 MG TAB PO SCH ×2 (09:21→20:43)
[2021-12-12] MEDS: FLUoxetine HCl 20 MG CAP PO SCH (09:22)
[2021-12-12] MEDS: Clopidogrel Bisulfate 75 MG TAB PO SCH (09:22)
[2021-12-12] MEDS: Gabapentin 400 MG CAP PO SCH ×2 (09:22→20:42)
[2021-12-12] MEDS: Famotidine 20 MG TAB PO SCH (09:22)
[2021-12-12] MEDS: hydrALAZINE 25 MG TAB PO SCH ×3 (09:23→20:43)
[2021-12-12] MEDS: Lantus 1000 UNITS/10 ML VIAL SC SCH (09:23)
[2021-12-12] MEDS: Spironolactone 25 MG TAB PO SCH (09:25)
[2021-12-12] MEDS: HumaLOG 300 UNITS/3 ML VIAL SC PRN ×4 (09:30→20:53)
[2021-12-12] MEDS: Lantiseptic Ointment 130 GM JAR TOP SCH (20:42)
[2021-12-12] MEDS: Clotrimazole 1% Cream 15 GM TUBE TOP SCH (20:42)
[2021-12-12] MEDS: Senokot S 8.6-50 MG TAB PO PRN (20:43)
[2021-12-13] MEDS: FLUoxetine HCl 20 MG CAP PO SCH (08:03)
[2021-12-13] MEDS: Gabapentin 400 MG CAP PO SCH ×2 (08:04→20:42)
[2021-12-13] MEDS: Atorvastatin Calcium 40 MG TAB PO SCH (08:04)
[2021-12-13] MEDS: Clopidogrel Bisulfate 75 MG TAB PO SCH (08:04)
[2021-12-13] MEDS: Carvedilol 12.5 MG TAB PO SCH ×2 (08:04→20:42)
[2021-12-13] MEDS: Spironolactone 25 MG TAB PO SCH (08:04)
[2021-12-13] MEDS: Famotidine 20 MG TAB PO SCH (08:05)
[2021-12-13] MEDS: Artificial Tear Sol 15 ML BOT EA EYE SCH ×2 (08:05→20:53)
[2021-12-13] MEDS: hydrALAZINE 25 MG TAB PO SCH ×3 (08:05→20:42)
[2021-12-13] MEDS: HumaLOG 300 UNITS/3 ML VIAL SC PRN ×4 (08:06→21:28)
[2021-12-13] MEDS: Lantus 1000 UNITS/10 ML VIAL SC SCH (08:06)
[2021-12-13] MEDS: Clotrimazole 1% Cream 15 GM TUBE TOP SCH ×2 (08:09→20:43)
[2021-12-13] MEDS: Lantiseptic Ointment 130 GM JAR TOP SCH ×2 (08:10→20:43)
[2021-12-13] MEDS: Polyethylene Glycol 3350 17 GM Packet PO PRN (09:00)
[2021-12-13] MEDS ORDERED: Ferrous Sulfate 325 MG TAB PO SCH (12:15)
[2021-12-13] MEDS: Senokot S 8.6-50 MG TAB PO PRN (20:42)
[2021-12-14] MEDS: Polyethylene Glycol 3350 17 GM Packet PO PRN (08:18)
[2021-12-14] MEDS: hydrALAZINE 25 MG TAB PO SCH ×3 (08:19→20:14)
[2021-12-14] MEDS: Clopidogrel Bisulfate 75 MG TAB PO SCH (08:19)
[2021-12-14] MEDS: Gabapentin 400 MG CAP PO SCH ×2 (08:19→20:14)
[2021-12-14] MEDS: Carvedilol 12.5 MG TAB PO SCH ×2 (08:19→20:14)
[2021-12-14] MEDS: Spironolactone 25 MG TAB PO SCH (08:19)
[2021-12-14] MEDS: FLUoxetine HCl 20 MG CAP PO SCH (08:19)
[2021-12-14] MEDS: Clotrimazole 1% Cream 15 GM TUBE TOP SCH ×2 (08:20→21:09)
[2021-12-14] MEDS: Artificial Tear Sol 15 ML BOT EA EYE SCH ×2 (08:20→20:14)
[2021-12-14] MEDS: Famotidine 20 MG TAB PO SCH (08:20)
[2021-12-14] MEDS: Atorvastatin Calcium 40 MG TAB PO SCH (08:20)
[2021-12-14] MEDS: Ferrous Sulfate 325 MG TAB PO SCH (08:20)
[2021-12-14] MEDS: Lantiseptic Ointment 130 GM JAR TOP SCH ×2 (08:21→20:16)
[2021-12-14] MEDS: Lantus 1000 UNITS/10 ML VIAL SC SCH (08:21)
[2021-12-14] MEDS: HumaLOG 300 UNITS/3 ML VIAL SC PRN ×4 (08:21→21:10)
[2021-12-14] MEDS: Acetaminophen/Codeine 30-300mg Tablet PO PRN (21:09)
[2021-12-15] MEDS: HumaLOG 300 UNITS/3 ML VIAL SC PRN ×3 (08:36→22:40)
[2021-12-15] MEDS: Artificial Tear Sol 15 ML BOT EA EYE SCH ×2 (08:36→21:59)
[2021-12-15] MEDS: Lantus 1000 UNITS/10 ML VIAL SC SCH (08:38)
[2021-12-15] MEDS: Gabapentin 400 MG CAP PO SCH (08:39)
[2021-12-15] MEDS: Carvedilol 12.5 MG TAB PO SCH ×2 (08:39→21:54)
[2021-12-15] MEDS: Clopidogrel Bisulfate 75 MG TAB PO SCH (08:39)
[2021-12-15] MEDS: Famotidine 20 MG TAB PO SCH (08:40)
[2021-12-15] MEDS: Atorvastatin Calcium 40 MG TAB PO SCH (08:40)
[2021-12-15] MEDS: FLUoxetine HCl 20 MG CAP PO SCH (08:41)
[2021-12-15] MEDS: Ferrous Sulfate 325 MG TAB PO SCH (08:41)
[2021-12-15] MEDS: hydrALAZINE 25 MG TAB PO SCH ×3 (08:41→21:54)
[2021-12-15] MEDS: Clotrimazole 1% Cream 15 GM TUBE TOP SCH ×2 (08:43→21:56)
[2021-12-15] MEDS: Lantiseptic Ointment 130 GM JAR TOP SCH ×2 (08:43→21:56)
[2021-12-15] MEDS: Spironolactone 25 MG TAB PO SCH (08:44)
[2021-12-15] MEDS: Acetaminophen/Codeine 30-300mg Tablet PO PRN (11:51)
[2021-12-15 17:58] LABS: SARS-CoV-2 PCR by NAA Not Detected (NotDetected)
[2021-12-15] MEDS: Gabapentin 300 MG CAP PO SCH (21:55)
[2021-12-16] MEDS: FLUoxetine HCl 20 MG CAP PO SCH (08:39)
[2021-12-16] MEDS: hydrALAZINE 25 MG TAB PO SCH ×3 (08:39→20:53)
[2021-12-16] MEDS: Spironolactone 25 MG TAB PO SCH (08:39)
[2021-12-16] MEDS: Famotidine 20 MG TAB PO SCH (08:39)
[2021-12-16] MEDS: Atorvastatin Calcium 40 MG TAB PO SCH (08:40)
[2021-12-16] MEDS: Clopidogrel Bisulfate 75 MG TAB PO SCH (08:40)
[2021-12-16] MEDS: Artificial Tear Sol 15 ML BOT EA EYE SCH ×2 (08:40→20:52)
[2021-12-16] MEDS: Carvedilol 12.5 MG TAB PO SCH ×2 (08:40→20:55)
[2021-12-16] MEDS: Lantiseptic Ointment 130 GM JAR TOP SCH ×2 (08:41→21:00)
[2021-12-16] MEDS: Clotrimazole 1% Cream 15 GM TUBE TOP SCH ×2 (08:41→21:00)
[2021-12-16] MEDS: Ferrous Sulfate 325 MG TAB PO SCH (08:41)
[2021-12-16] MEDS: HumaLOG 300 UNITS/3 ML VIAL SC PRN ×4 (08:42→20:56)
[2021-12-16] MEDS: Lantus 1000 UNITS/10 ML VIAL SC SCH (08:42)
[2021-12-16] MEDS: Gabapentin 300 MG CAP PO SCH ×2 (08:49→20:53)
[2021-12-16] MEDS: Acetaminophen/Codeine 30-300mg Tablet PO PRN (20:55)
[2021-12-17] MEDS: Acetaminophen/Codeine 30-300mg Tablet PO PRN (05:52)
[2021-12-17] MEDS: Carvedilol 12.5 MG TAB PO SCH (08:34)
[2021-12-17] MEDS: Spironolactone 25 MG TAB PO SCH (08:34)
[2021-12-17] MEDS: Gabapentin 300 MG CAP PO SCH (08:34)
[2021-12-17] MEDS: Artificial Tear Sol 15 ML BOT EA EYE SCH (08:34)
[2021-12-17] MEDS: FLUoxetine HCl 20 MG CAP PO SCH (08:35)
[2021-12-17] MEDS: Atorvastatin Calcium 40 MG TAB PO SCH (08:35)
[2021-12-17] MEDS: hydrALAZINE 25 MG TAB PO SCH ×2 (08:35→14:39)
[2021-12-17] MEDS: Famotidine 20 MG TAB PO SCH (08:35)
[2021-12-17] MEDS: Ferrous Sulfate 325 MG TAB PO SCH (08:35)
[2021-12-17] MEDS: Lantiseptic Ointment 130 GM JAR TOP SCH (08:36)
[2021-12-17] MEDS: Clotrimazole 1% Cream 15 GM TUBE TOP SCH (08:36)
[2021-12-17] MEDS: HumaLOG 300 UNITS/3 ML VIAL SC PRN ×3 (08:36→16:58)
[2021-12-17] MEDS: Clopidogrel Bisulfate 75 MG TAB PO SCH (08:36)
[2021-12-17] MEDS: Lantus 1000 UNITS/10 ML VIAL SC SCH (08:36)
[2021-12-17 17:32] VITALS: TEMP 97.8
[2021-12-17 18:00] VITALS: BP 170/74
== END 2021-12-17 18:08 | disposition home health service (06) | DRG 948 ==
LOC: MADMS 14:25
PROVIDERS: ADMIT Family Medicine; ATTEND Family Medicine
DX: R53.81 Other malaise (principal); I50.22 Chronic systolic (congestive) heart failure; I13.0 Hypertensive heart and chronic kidney disease with heart failure and stage 1 through stage 4 chronic kidney disease, or unspecified chronic kidney disease; R53.1 Weakness; I25.10 Atherosclerotic heart disease of native coronary artery without angina pectoris; E11.51 Type 2 diabetes mellitus with diabetic peripheral angiopathy without gangrene; M54.50 Low back pain, unspecified; Z20.822 Contact with and (suspected) exposure to COVID-19; F41.9 Anxiety disorder, unspecified; E11.22 Type 2 diabetes mellitus with diabetic chronic kidney disease; N18.30 Chronic kidney disease, stage 3 unspecified; J44.9 Chronic obstructive pulmonary disease, unspecified; B37.2 Candidiasis of skin and nail; F32.A Depression, unspecified; E66.9 Obesity, unspecified; Z98.1 Arthrodesis status; Z88.8 Allergy status to other drugs, medicaments and biological substances; Z79.899 Other long term (current) drug therapy; Z79.02 Long term (current) use of antithrombotics/antiplatelets; Z79.4 Long term (current) use of insulin; Z79.891 Long term (current) use of opiate analgesic; Z89.422 Acquired absence of other left toe(s); Z95.1 Presence of aortocoronary bypass graft; Z95.810 Presence of automatic (implantable) cardiac defibrillator; Z87.891 Personal history of nicotine dependence; Z68.33 Body mass index [BMI] 33.0-33.9, adult
CPT/HCPCS: 36416; 71046; 80048; 85025; J1815; J7620; U0003; U0005

== ENCOUNTER 2021-12-29 12:04 | Outpatient (CLI) | payer MEDICARE | END 2021-12-29 12:05 | disposition home or self-care (01) | LOC: MADRAD 12:04 | PROVIDERS: ATTEND Orthopaedic Surgery | DX: M54.50 Low back pain, unspecified (principal); M47.816 Spondylosis without myelopathy or radiculopathy, lumbar region; Z98.890 Other specified postprocedural states | CPT/HCPCS: 72100 ==

== ENCOUNTER 2022-04-01 10:49 | Outpatient (CLI) | payer OTHER ==
[2022-04-01 11:17] LABS: #Basophils 0.1 thou/uL (0.0-0.2); #Eosinphils 0.2 thou/uL (0.0-0.7); #Lymphocytes 1.3 thou/uL (1.20-3.40); #Monocytes 0.9 thou/uL (0.11-0.59); %Basophils 0.5 % (0.0-1.0); %Eosinophils 1.3 % (0.0-10.0); %Lymphocytes 11.3 % (21.0-51.0); %Monocytes 7.5 % (0.0-10.0); %Neutrophils 79.4 % (42.0-75.0); Hemoglobin 10.5 g/dL (12.0-16.0); Mean Corpuscular HGB CONC 30.9 g/dL (32.0-36.0); Mean Corpuscular Hemoglobin 29.2 pg (27.0-31.0); Mean Corpuscular Volume 94.5 fL (78.0-98.0); Mean Platelet Volume 6.5 fL (7.4-10.4); Platelet Count 334 thou/uL (130-400); RBC Distribution Width 13.8 % (11.5-14.5); Red Blood Cell (RBC) Count 3.59 mill/uL (4.20-5.40); White Blood Cell (WBC) Count 11.4 thou/uL (4.8-10.8)
[2022-04-01 11:29] LABS: ALT (SGPT) 11 U/L (8-55); AST (SGOT) 8 U/L (5-34); Albumin 3.7 g/dL (3.5-5.0); Alkaline Phosphatase 111 U/L (40-110); Anion Gap 18 mmol/L (10-20); BUN (Urea Nitrogen) 42 mg/dL (9.8-20.1); Bilirubin, Total 0.2 mg/dL (0.2-1.2); Calc. Creatinine Clearance 0 mL/min (70-130); Carbon Dioxide 19 mmol/L (22-29); Cardiac Risk 4.4 (Less than 4.5); Chloride 108 mmol/L (98-107); Cholesterol 120 mg/dl (< 200 Desired); Estimated GFR 28; Globulin 3.5 g/dL (2.4-3.5); HDL Cholesterol 27 mg/dL (>60 Neg Risk); LDL Cholesterol, Calculated 69 mg/dL; Protein, Total 7.2 g/dL (6.0-8.3); Sodium 138 mmol/L (136-145); Triglycerides 120 mg/dL (Less than 150)
[2022-04-01 11:49] LABS: Glucose 48 mg/dL (70-105); Potassium 6.9 mmol/L (3.5-5.1)
[2022-04-01 16:18] LABS: Hemoglobin A1c 7.2 % (4.0-6.0)
== END 2022-04-01 10:50 | disposition home or self-care (01) ==
LOC: MADLAB 10:49
PROVIDERS: ATTEND Family Medicine
DX: E10.65 Type 1 diabetes mellitus with hyperglycemia (principal); Z86.2 Personal history of diseases of the blood and blood-forming organs and certain disorders involving the immune mechanism
CPT/HCPCS: 80053; 80061; 82728; 83036; 85025

== ENCOUNTER 2022-08-03 19:36 | Outpatient (CLI) | payer MEDICARE ==
[2022-08-03 19:53] LABS: #Eosinphils 0.2 thou/uL (0.0-0.7); #Lymphocytes 1.4 thou/uL (1.20-3.40); #Monocytes 0.9 thou/uL (0.11-0.59); #Neutrophils 4.9 thou/uL (1.40-6.50); %Basophils 0.6 % (0.0-1.0); %Eosinophils 2.8 % (0.0-10.0); %Lymphocytes 18.4 % (21.0-51.0); %Monocytes 12.4 % (0.0-10.0); %Neutrophils 65.8 % (42.0-75.0); Hemoglobin 7.5 g/dL (12.0-16.0); Mean Corpuscular Hemoglobin 31.2 pg (27.0-31.0); Mean Corpuscular Volume 97.4 fl (78.0-98.0); Platelet Count 315 thou/uL (130-400); RBC Distribution Width 14.2 % (11.5-14.5); Red Blood Cell (RBC) Count 2.41 mill/uL (4.20-5.40); White Blood Cell (WBC) Count 7.5 thou/uL (4.8-10.8)
[2022-08-03 20:05] LABS: ALT (SGPT) Less than 7 U/L (8-55); AST (SGOT) 10 U/L (5-34); Albumin 2.8 g/dL (3.5-5.0); Alkaline Phosphatase 108 U/L (40-110); Anion Gap 15 mmol/L (10-20); BUN (Urea Nitrogen) 30 mg/dL (9.8-20.1); Bilirubin, Total 0.2 mg/dL (0.2-1.2); CRP (Inflammatory) 8.78 mg/dL (= or < 0.5); Calc. Creatinine Clearance 0 mL/min (70-130); Calcium 8.1 mg/dL (7.8-10.44); Carbon Dioxide 27 mmol/L (22-29); Chloride 102 mmol/L (98-107); Estimated GFR 29; Globulin 3.1 g/dL (2.4-3.5); Glucose 177 mg/dL (70-105); Potassium 4.6 mmol/L (3.5-5.1); Protein, Total 5.9 g/dL (6.0-8.3); Sodium 139 mmol/L (136-145)
== END 2022-08-03 19:37 | disposition home or self-care (01) ==
LOC: MADLAB 19:36
PROVIDERS: ATTEND Family Medicine
DX: E11.51 Type 2 diabetes mellitus with diabetic peripheral angiopathy without gangrene (principal); M86.672 Other chronic osteomyelitis, left ankle and foot; I13.0 Hypertensive heart and chronic kidney disease with heart failure and stage 1 through stage 4 chronic kidney disease, or unspecified chronic kidney disease; I50.9 Heart failure, unspecified; E11.22 Type 2 diabetes mellitus with diabetic chronic kidney disease; N18.9 Chronic kidney disease, unspecified; Z79.2 Long term (current) use of antibiotics
CPT/HCPCS: 80053; 85025; 85652; 86140

== ENCOUNTER 2022-08-20 11:23 | Emergency (ER) | payer MEDICARE ==
[2022-08-20 11:54] LABS: #Basophils 0.1 thou/uL (0.0-0.2); #Eosinphils 0.1 thou/uL (0.0-0.7); #Monocytes 0.6 thou/uL (0.11-0.59); #Neutrophils 5.7 thou/uL (1.40-6.50); %Basophils 0.8 % (0.0-1.0); %Eosinophils 1.4 % (0.0-10.0); %Lymphocytes 13.9 % (21.0-51.0); %Monocytes 7.7 % (0.0-10.0); %Neutrophils 76.1 % (42.0-75.0); Hemoglobin 8.1 g/dL (12.0-16.0); Mean Corpuscular HGB CONC 31.9 g/dL (32.0-36.0); Mean Corpuscular Hemoglobin 30.3 pg (27.0-31.0); Mean Platelet Volume 6.4 fL (7.4-10.4); Platelet Count 257 10x3/uL (130-400); RBC Distribution Width 14.8 % (11.5-14.5); Red Blood Cell (RBC) Count 2.66 mill/uL (4.20-5.40); White Blood Cell (WBC) Count 7.5 10x3/uL (4.8-10.8)
[2022-08-20] MEDS ORDERED: Sodium Chloride 0.9% 100 ML ONE (12:00)
[2022-08-20] MEDS ORDERED: Clopidogrel Bisulfate 75 MG TAB ONE (12:00)
[2022-08-20] MEDS ORDERED: Aspirin 325 MG TAB ONE (12:00)
[2022-08-20] MEDS ORDERED: methylPREDNISolone Sod Succ/PF 125 MG/2 ML VIAL ONE (12:00)
[2022-08-20] MEDS ORDERED: Furosemide 40 MG/4 ML VIAL ONE (12:00)
[2022-08-20] MEDS ORDERED: Meropenem 1 GM VIAL ONE (12:00)
[2022-08-20 12:09] LABS: Base Excess-Venous 1.2 mmol/L (-2.0 to 3.0); Bicarbonate (HCO3v) 27.2 mmol/L (22.0-28.0); CO2 Tension (PvCO2) 49.7 mmHg (42.0-51.0); Calcium, Ionized 1.15 mmol/L (1.15-1.33); Chloride 101 mmol/L (98-107); Hemoglobin - Calc 8.8 g/dL (12.0-16.0); Potassium 3.9 mmol/L (3.5-5.1); Sodium 140 mmol/L (138-145); T. Carbon Dioxide 28.8 mmol/L (22.0-28.0)
[2022-08-20 12:10] LABS: ALT (SGPT) 8 U/L (8-55); AST (SGOT) 11 U/L (5-34); Alkaline Phosphatase 111 U/L (40-110); Anion Gap 14 mmol/L (10-20); BUN (Urea Nitrogen) 26 mg/dL (9.8-20.1); Bilirubin, Total 0.6 mg/dL (0.2-1.2); Calc. Creatinine Clearance 0 mL/min (70-130); Calcium 8.5 mg/dL (7.8-10.44); Carbon Dioxide 26 mmol/L (22-29); Chloride 101 mmol/L (98-107); Estimated GFR 38; Globulin 3.6 g/dL (2.4-3.5); Glucose 252 mg/dL (70-105); Potassium 3.9 mmol/L (3.5-5.1); Protein, Total 6.6 g/dL (6.0-8.3); Sodium 137 mmol/L (136-145)
[2022-08-20 12:34] LABS: CKMB 2.4 ng/mL (0-6.6)
[2022-08-20] MEDS ORDERED: Carvedilol 12.5 MG TAB PO SCH (12:45)
== END 2022-08-20 14:20 | disposition short-term general hospital (02) ==
LOC: MADERS 11:23
DX: J44.1 Chronic obstructive pulmonary disease with (acute) exacerbation (principal); I11.0 Hypertensive heart disease with heart failure; I50.9 Heart failure, unspecified; J96.00 Acute respiratory failure, unspecified whether with hypoxia or hypercapnia; R79.89 Other specified abnormal findings of blood chemistry; E11.9 Type 2 diabetes mellitus without complications; E78.00 Pure hypercholesterolemia, unspecified; Z87.891 Personal history of nicotine dependence
CPT/HCPCS: 36415; 71045; 80053; 82330; 82553; 82803; 83735; 83880; 84484; 85014; 85025; 93005; 96365; 96375; J1940; J2185; J2930; J3490; J7620